=== PATIENT | male | born 1985 | race Caucasian/White ===

== ENCOUNTER 2018-07-30 14:29 | Inpatient (IN) | payer OTHER ==
[~2018-07-30] VITALS: Ht 175.3 cm; Wt 111.2 kg
[2018-07-30] MEDS ORDERED: HYDROmorphone 2 MG/ML VIAL IVP PRN (15:15)
[2018-07-30 15:24] VITALS: BP 112/63
[2018-07-30] MEDS: methylPREDNISolone SOD SUCC PF 125 MG/2 ML VIAL. IV SCH (16:00)
--- NOTE | 2018-07-30 16:09 | PDOC2 ---
GI CONSULT HPI: HPI: Easton Curry is a 32 years old male patient with history of abdominal pain, change in bowel habits with diarrhea and hematochezia. He had recent imaging of abdomen with CT that showed thickening in the left colon concerning for underlying inflammatory bowel disease. He underwent flex sig 07/30/2018 with scope advanced to splenic flexure. The exam was notable for severe inflammation with altered vascular markings, granularity,erosions,ulcerations with areas of necrotic tissue in the colonic mucosa extending from the rectum to visualized splenic flexure and distal transverse colon. Multiple biopsies were obtained to rule out IBD and viral inclusions ( CMV). Patient reported to have worsening of abdominal pain in the left upper quadrant area after the procedure. He described the pain as sharp with severity 8/10. He has associated nausea. No other complaints. PMH: PMH: Migraine FH: Family History: No pertinent hx Social History: Smoke: No ROS: GEN: Denies fevers, chills, sweats HEENT: Denies blurred vision, sore throat CV: Denies chest pain RESP: Denies shortness of air, cough GI: Per HPI : Denies hematuria, dysuria ENDO: Denies weight changes NEURO: Denies confusion, dizziness MSK: Denies weakness, joint pain/swelling SKIN: Denies jaundice, pruritus Vitals: Vitals: V/S were stable after procedure. PE: GEN: NAD HEENT: Atraumatic, PERRLA LUNGS: CTAB HEART: RRR, no murmurs ABD: Full abdomen. There was direct tenderness in the left upper abdomen. EXTREMITY: No edema SKIN: No rashes, no jaundice NEURO/PSYCH: A & O 3 A/P: A/P: A 32 years old male patient with abdominal pain, change in bowel habits with diarrhea and hematochezia. he had abnormal CT with thickening of the left side of colon wall concerning for IBD. Underwent flex sig 07/30/2018 that was notable severe colitis in the form of erythema, altered vascularity, granularity, erosions, deep ulcerations with area of necrotic mucosa in the colon from rectum to visualized distal transverse colon. Patient was complaining of worsening abdominal pain after the procedure. Recommendations - Admit to Hospital. - Keep patient NPO. - CT of abdomen and pelvis stat ( ordered) to rule out perforations. - Repeat stool studies for C.diff. - Start IV Flagyl/ Cipro. - Solu-medrol 60mg iv daily - Consult surgery ( already discussed with ) for possible diverting colostomy if patient has toxic megacolon versus perforation. - GI available for any Q's. Thank you for involving us in the care of this interesting patient. DAVINA PIERSON MD Jul 30, 2018 16:09
[2018-07-30 16:18] LABS: CALCIUM 8.6 mg/dL (8.5-10.1); GFR 85.5
[2018-07-30 16:24] LABS: ALBUMIN 3.7 g/dL (3.4-5.0); ALBUMIN/GLOBULIN RATIO 0.9 (1.0-1.7); TOTAL BILIRUBIN 0.5 mg/dL (0.2-1.0); TOTAL PROTEIN 7.9 g/dL (6.4-8.2)
--- NOTE | 2018-07-30 16:25 | RAD ---
PQRS Compliance Statement: One or more of the following individualized dose reduction techniques were utilized for this examination: 1. Automated exposure control 2. Adjustment of the mA and/or kV according to patient size 3. Use of iterative reconstruction technique CT ABDOMEN PELVIS WO CONTRAST Clinical Indication: SEVERE ABD PAIN, COLONOSCOPY TODAY, Comparison: CT abdomen and pelvis without contrast, August 18, 2011. Technique: Helical CT imaging of the abdomen and pelvis is performed without IV or oral contrast. Findings: Evaluation of solid organs and bowel is limited without oral and IV contrast, decreasing sensitivity for detection of pathology. Mild bilateral lower lobe dependent atelectasis. There is no intraperitoneal free air. Cardiac size normal. Liver, gallbladder, spleen, pancreas, adrenal glands, abdominal aorta, and kidneys are normal. Stomach unremarkable. There are subcentimeter mesenteric lymph nodes. There are several subcentimeter retroperitoneal lymph nodes. There is no adenopathy. No dilated small bowel. The appendix is normal caliber. Small amount of air in the tip of the lumen. No surrounding inflammation. No colon wall thickening. Urinary bladder is normal. Prostate and seminal vesicles are normal. No pelvic free fluid. Minimal grade 1 anterolisthesis of L5 on S1. Minimal grade 1 retrolisthesis of L4 on L5. There is no L5 spondylolysis. IMPRESSION: No acute abdominal or pelvic abnormality. Electronically signed by: Hill Greenfield MD (07/30/2018 4:22 PM) [id number]
[2018-07-30] MEDS: IV NORMAL SALINE 1000ML BAG 1,000 ML IV SCH (16:48)
[2018-07-30] MEDS: CIPROFLOXACIN 200MG PREMIX 100 ML IV SCH (16:56)
[2018-07-30] MEDS: HYDROmorphone 2 MG/ML VIAL IVP PRN ×2 (18:20→21:44)
[2018-07-30 19:00] VITALS: BP 118/60
--- NOTE | 2018-07-30 22:08 | PDOC1 ---
History and Physical Date of Admission Date of Admission DATE: 07/30/18 TIME: 22:08 Identification/Chief Complaint Chief Complaint admitted today per GI FOR SEVERE PANCOLITIS ON COLONOSCOPY TODAY Past Medical History Cardiovascular: No pertinent hx Pulmonary: No pertinent hx Hepatobiliary: Other (IBS) Infectious disease: No pertinent hx Renal/: No pertinent hx Past Surgical History Past Surgical History: Other Family History Family History: High Cholestrol Social History Smoke: No ALCOHOL: none Drugs: None Current Medications Current Medications Current Medications Hydromorphone HCl (Dilaudid) 0.5 mg PRN Q3HRS PRN IVP severe pain Last administered on 07/30/18at 15:27; Start 07/30/18 at 15:15; Stop 07/30/18 at 18:07 ; Status DC Methylprednisolone Sodium Succinate (SOLU-Medrol 125MG VIAL) 60 mg DAILY IV ; Start 07/30/18 at 16:00 Sodium Chloride 1,000 ml @ 100 mls/hr Q10H IV Last administered on 07/30/18at 16:48; Start 07/30/18 at 16:30 Metronidazole 100 ml @ 100 mls/hr Q8HRS IV Last administered on 07/30/18at 18: 19; Start 07/30/18 at 17:00 Ciprofloxacin/ Dextrose 100 ml @ 100 mls/hr Q12HR IV Last administered on 07/30at 16:56; Start 07/30/18 at 17:00 Hydromorphone HCl (Dilaudid) 1 mg PRN Q3HRS PRN IVP PAIN Last administered on at 21:44; Start 07/30/18 at 18:15 Allergies Allergies: Coded Allergies: acetaminophen (Verified Adverse Reaction, Intermediate, Nausea and Vomiting, 07/30/18) oxycodone (Verified Adverse Reaction, Intermediate, Nausea and Vomiting, ) ROS General: YES: Fatigue; No: Chills, Night Sweats, Malaise, Appetite, Other PSYCHOLOGICAL ROS: YES: Anxiety Eyes: No Blurry vision, No Decreased vision, No Double vision, No Dry eyes, No Excessive tearing, No Eye Pain, No Itchy Eyes, No Loss of vision, No Photophobia , No Scotomata, No Uses contacts, No Uses glasses, No Other HEENT: No: Heacaches, Visual Changes, Hearing change, Nasal congestion, Nasal discharge, Oral lesions, Sinus pain, Sore Throat, Epistaxis, Sneezing, Snoring, Tinnitus, Vertigo, Vocal changes, Other ALLERGY AND IMMUNOLOGY: No: Hives, Insect Bite Sensitivity, Itchy/Watery Eyes, Nasal Congestion, Post Nasal Drip, Seasonal Allergies, Other Hematological and Lymphatic: No: Bleeding Problems, Blood Clots, Blood Transfusions, Brusing, Night Sweats, Pallor, Swollen Lymph Nodes, Other ENDOCRINE: No: Breast Changes, Galactorrhea, Hair Pattern Changes, Hot Flashes , Malaise/lethargy, Mood Swings, Palpitations, Polydipsia/polyuria, Skin Changes , Temperature Intolerance, Unexpected Weight Changes, Other Respiratory: No: Cough, Hemoptysis, Orthopnea, Pleuritic Pain, Shortness of breath, SOB with excertion, Sputum Changes, Stridor, Tachypnea, Wheezing, Other Cardiovascular: No Chest Pain, No Palpitations, No Orthopnea, No Paroxysmal Noc. Dyspnea, No Edema, No Lt Headedness, No Other Gastrointestinal: Yes Abdominal Pain, Yes Melena Genitourinary: No Dysuria, No Frequency, No Incontinence, No Hematuria, No Retention, No Discharge, No Urgency, No Pain, No Flank Pain, No Other, No , No , No , No , No , No , No Musculoskeletal: No Gait Disturbance, No Joint Pain, No Joint Stiffness, No Joint Swelling, No Muscle Pain, No Muscular Weakness, No Pain In:, No Swelling In:, No Other Neurological: No Behavorial Changes, No Bowel/Bladder ControlChng, No Confusion , No Dizziness, No Gait Disturbance, No Headaches, No Impaired Coord/balance, No Memory Loss, No Numbness/Tingling, No Seizures, No Speech Problems, No Tremors, No Visual Changes, No Weakness, No Other Physical Exam General: Alert, Oriented X3, Cooperative, No acute distress HEENT: Atraumatic, PERRLA, EOMI Lungs: Clear to auscultation, Normal air movement Heart: S1S2, RRR, no thrills, no gallops, no murmurs Breasts: Not examined Abdomen: Normal bowel sounds, Other (MILD TENDERNESS) Rectal Exam: not examined, deferred PELVIC: Examination not indicated Extremities: No cyanosis Skin: No breakdown Neuro: Normal speech, Strength at 5/5 X4 ext, Sensation intact, Cranial nerves 3-12 NL Psych/Mental Status: Mental status NL, Mood NL Vitals Vitals Vital Signs Date Time Temp Pulse Resp B/P (MAP) Pulse Ox O2 Delivery O2 Flow Rate FiO2 07/30/18 21:44 18 92 Room Air 07/30/18 19:00 98.3 85 118/60 (79) 98.3 Labs Labs Laboratory Tests Test 07/30/18 16:00 Erythrocyte Sedimentation Rate 28 (0-15) Sodium Level 139 mmol/L (136-145) Potassium Level 4.0 mmol/L (3.5-5.1) Chloride Level 101 mmol/L (98-107) Carbon Dioxide Level 26 mmol/L (21-32) Anion Gap 12 (6-14) Blood Urea Nitrogen 14 mg/dL (8-26) Creatinine 1.0 mg/dL (0.7-1.3) Estimated GFR (Cockcroft-Gault) 85.5 BUN/Creatinine Ratio 14 (6-20) Glucose Level 106 mg/dL (70-99) Calcium Level 8.6 mg/dL (8.5-10.1) Total Bilirubin 0.5 mg/dL (0.2-1.0) Aspartate Amino Transf (AST/SGOT) 22 U/L (15-37) Alanine Aminotransferase (ALT/SGPT) 46 U/L (16-63) Alkaline Phosphatase 92 U/L (46-116) Total Protein 7.9 g/dL (6.4-8.2) Albumin 3.7 g/dL (3.4-5.0) Albumin/Globulin Ratio 0.9 (1.0-1.7) Hepatitis A IgM Antibody Nonreactive (Nonreactive) Hepatitis B Surface Antigen Nonreactive (Nonreactive) Hepatitis B Core IgM Antibody Nonreactive (Nonreactive) Hepatitis C IgG Antibody Nonreactive (Nonreactive) HIV (1&2) Antibody Screen Nonreactive (Nonreactive) Laboratory Tests Test 07/30/18 16:00 Erythrocyte Sedimentation Rate 28 (0-15) Sodium Level 139 mmol/L (136-145) Potassium Level 4.0 mmol/L (3.5-5.1) Chloride Level 101 mmol/L (98-107) Carbon Dioxide Level 26 mmol/L (21-32) Anion Gap 12 (6-14) Blood Urea Nitrogen 14 mg/dL (8-26) Creatinine 1.0 mg/dL (0.7-1.3) Estimated GFR (Cockcroft-Gault) 85.5 BUN/Creatinine Ratio 14 (6-20) Glucose Level 106 mg/dL (70-99) Calcium Level 8.6 mg/dL (8.5-10.1) Total Bilirubin 0.5 mg/dL (0.2-1.0) Aspartate Amino Transf (AST/SGOT) 22 U/L (15-37) Alanine Aminotransferase (ALT/SGPT) 46 U/L (16-63) Alkaline Phosphatase 92 U/L (46-116) Total Protein 7.9 g/dL (6.4-8.2) Albumin 3.7 g/dL (3.4-5.0) Albumin/Globulin Ratio 0.9 (1.0-1.7) Hepatitis A IgM Antibody Nonreactive (Nonreactive) Hepatitis B Surface Antigen Nonreactive (Nonreactive) Hepatitis B Core IgM Antibody Nonreactive (Nonreactive) Hepatitis C IgG Antibody Nonreactive (Nonreactive) HIV (1&2) Antibody Screen Nonreactive (Nonreactive) Images Images CT ABDOMEN PELVIS WO CONTRAST Clinical Indication: SEVERE ABD PAIN, COLONOSCOPY TODAY, Comparison: CT abdomen and pelvis without contrast, August 18, 2011. Technique: Helical CT imaging of the abdomen and pelvis is performed without IV or oral contrast. Findings: Evaluation of solid organs and bowel is limited without oral and IV contrast, decreasing sensitivity for detection of pathology. Mild bilateral lower lobe dependent atelectasis. There is no intraperitoneal free air. Cardiac size normal. Liver, gallbladder, spleen, pancreas, adrenal glands, abdominal aorta, and kidneys are normal. Stomach unremarkable. There are subcentimeter mesenteric lymph nodes. There are several subcentimeter retroperitoneal lymph nodes. There is no adenopathy. No dilated small bowel. The appendix is normal caliber. Small amount of air in the tip of the lumen. No surrounding inflammation. No colon wall thickening. Urinary bladder is normal. Prostate and seminal vesicles are normal. No pelvic free fluid. Minimal grade 1 anterolisthesis of L5 on S1. Minimal grade 1 retrolisthesis of L4 on L5. There is no L5 spondylolysis. IMPRESSION: No acute abdominal or pelvic abnormality. Electronically signed by: Hill Greenfield MD (07/30/2018 4:22 PM) [id number] VTE Prophylaxis Ordered VTE Prophylaxis Devices: Yes VTE Pharmacological Prophylaxi: Yes Assessment/Plan Assessment/Plan IMPRESSION 1. SEVERE PANCOLITIS 2. possible c-diff 3. hx suspected colitis x 3 4. Minimal grade 1 anterolisthesis of L5 on S1. Minimal grade 1 retrolisthesis of L4 on L5. There is no L5 spondylolysis. plan npo iv fluid support iv flagyl, cipro PATHOGENIC enteric stool culture GI CONSULTED [facility] - Solu-medrol 60mg iv daily - Consult surgery () ERNESTO FLORES MD Jul 30, 2018 22:08
[2018-07-30 23:00] VITALS: BP 110/56
[2018-07-31] MEDS ORDERED: diphenhydrAMINE 50 MG/ML VIAL IVP ONE (01:15)
[2018-07-31] MEDS: HYDROmorphone 2 MG/ML VIAL IVP PRN (01:24)
[2018-07-31 03:00] VITALS: BP 120/70
[2018-07-31] MEDS: IV NORMAL SALINE 1000ML BAG 1,000 ML IV SCH ×3 (03:54→22:30)
[2018-07-31 06:58] LABS: BASO % 0 % (0-3); EOS % 0 % (0-3); HEMATOCRIT 38.3 % (39.0-53.0); HEMOGLOBIN 12.8 g/dL (13.0-17.5); LYMPH # 0.8 x10^3/uL (1.0-4.8); LYMPH % 7 % (24-48); MEAN CORPUSCULAR HEMOGLOBIN 29 pg (25-35); MEAN CORPUSCULAR HGB CONC 33 g/dL (31-37); MEAN CORPUSCULAR VOLUME 88 fL (79-100); MONO # 0.3 x10^3/uL (0.0-1.1); MONO % 3 % (0-9); NEUT # 10.6 x10^3uL (1.8-7.7); NEUT % 90 % (31-73); PLATELET COUNT 358 x10^3/uL (140-400); RED BLOOD COUNT 4.38 x10^6/uL (4.30-5.70); RED CELL DISTRIBUTION WIDTH 13.4 % (11.5-14.5); WHITE BLOOD COUNT 11.8 x10^3/uL (4.0-11.0)
[2018-07-31 07:00] VITALS: BP 96/53
[2018-07-31 07:36] LABS: ALBUMIN 2.9 g/dL (3.4-5.0); ALBUMIN/GLOBULIN RATIO 0.7 (1.0-1.7); CALCIUM 8.6 mg/dL (8.5-10.1); CREATININE 0.7 mg/dL (0.7-1.3); GFR 129.1; POTASSIUM 3.9 mmol/L (3.5-5.1); TOTAL BILIRUBIN 0.5 mg/dL (0.2-1.0); TOTAL PROTEIN 6.9 g/dL (6.4-8.2)
--- NOTE | 2018-07-31 08:51 | PDOC ---
Subjective: Subjective: Feels much better - no diarrhea or bleeding, pain improved. Objective: Objective: RN reports he c/o heartburn. Got Dilaudid overnight. Vital Signs: Vital Signs Date Time Temp Pulse Resp B/P (MAP) Pulse Ox O2 Delivery O2 Flow Rate FiO2 07/31/18 03:00 98.3 70 18 120/70 (87) 97 Room Air 98.3 Labs: Laboratory Tests Test 07/30/18 16:00 07/31/18 06:00 07/31/18 06:20 Erythrocyte Sedimentation Rate 28 Sodium Level 139 mmol/L 138 mmol/L Potassium Level 4.0 mmol/L 3.9 mmol/L Chloride Level 101 mmol/L 103 mmol/L Carbon Dioxide Level 26 mmol/L 27 mmol/L Anion Gap 12 8 Blood Urea Nitrogen 14 mg/dL 14 mg/dL Creatinine 1.0 mg/dL 0.7 mg/dL Estimated GFR (Cockcroft-Gault) 85.5 129.1 BUN/Creatinine Ratio 14 20 Glucose Level 106 mg/dL 131 mg/dL Calcium Level 8.6 mg/dL 8.6 mg/dL Total Bilirubin 0.5 mg/dL 0.5 mg/dL Aspartate Amino Transf (AST/SGOT) 22 U/L 19 U/L Alanine Aminotransferase (ALT/SGPT) 46 U/L 39 U/L Alkaline Phosphatase 92 U/L 85 U/L Total Protein 7.9 g/dL 6.9 g/dL Albumin 3.7 g/dL 2.9 g/dL Albumin/Globulin Ratio 0.9 0.7 Hepatitis A IgM Antibody Nonreactive Hepatitis B Surface Antigen Nonreactive Hepatitis B Core IgM Antibody Nonreactive Hepatitis C IgG Antibody Nonreactive HIV (1&2) Antibody Screen Nonreactive White Blood Count 11.8 x10^3/uL Red Blood Count 4.38 x10^6/uL Hemoglobin 12.8 g/dL Hematocrit 38.3 % Mean Corpuscular Volume 88 fL Mean Corpuscular Hemoglobin 29 pg Mean Corpuscular Hemoglobin Concent 33 g/dL Red Cell Distribution Width 13.4 % Platelet Count 358 x10^3/uL Neutrophils (%) (Auto) 90 % Lymphocytes (%) (Auto) 7 % Monocytes (%) (Auto) 3 % Eosinophils (%) (Auto) 0 % Basophils (%) (Auto) 0 % Neutrophils # (Auto) 10.6 x10^3uL Lymphocytes # (Auto) 0.8 x10^3/uL Monocytes # (Auto) 0.3 x10^3/uL Eosinophils # (Auto) 0.0 x10^3/uL Basophils # (Auto) 0.0 x10^3/uL Platelet Estimate Pending PE: GEN: NAD LUNGS: CTAB HEART: RRR ABD: NABS, S/ND/NT NEURO/PSYCH: A & O 3 A/P: Severe colitis concerning for UC -- Continue IV steroids x 4 days - consider DC on Sunday (?CT enterography prior to DC) Await pending labs. Can cancel C Diff - was negative on 07/29. Try clears and ADAT. Follow-up in the office re: initiation of biologic therapy (Remicade). Our office is taking care of [place] paperwork per his request. Okay for DVT prophylaxis (per primary) - encouraged ambulation. FER ROSENBERG Jul 31, 2018 08:51
[2018-07-31] MEDS ORDERED: traMADol 50 MG TABLET PO PRN (09:00)
[2018-07-31] MEDS: CIPROFLOXACIN 200MG PREMIX 100 ML IV SCH ×2 (09:06→21:46)
[2018-07-31] MEDS: PANTOPRAZOLE 40 MG TABLET.DR. PO SCH (09:06)
[2018-07-31] MEDS: methylPREDNISolone SOD SUCC PF 125 MG/2 ML VIAL. IV SCH (09:07)
[2018-07-31 09:20] LABS: % BANDS 2 % (0-9); % LYMPHS 9 % (24-48); % MONOS 1 % (0-10); % SEGS 88 % (35-66); PLT ESTIMATE ADEQUATE (ADEQUATE)
--- NOTE | 2018-07-31 10:12 | PDOC2 ---
CONSULT Date of Consult Date of Consult DATE: 07/31/18 TIME: 10:08 Reason for Consult Reason for Consult: colitis Referring Physician Referring Physician: Jerry Identification/Chief Complaint Chief Complaint LLQ abd pain, hematochezia Source Source: Caregiver, Chart review, Patient History of Present Illness Reason for Visit: 32 yo M with hx of colitis. Developed issues with hematochezia and abd pain. Underwent colonoscopy by GI yesterday with increased pain. Admitted to hospital and started on steroids. Today, feels much improved. Denies N/V/F/C. Pain nearly resolved. Past Medical History Cardiovascular: No pertinent hx Pulmonary: No pertinent hx Hepatobiliary: Other (IBS) Infectious disease: No pertinent hx Renal/: No pertinent hx Past Surgical History Past Surgical History: Other Family History Family History: High Cholestrol Social History No ALCOHOL: none Drugs: None Current Medications Current Medications Current Medications Hydromorphone HCl (Dilaudid) 0.5 mg PRN Q3HRS PRN IVP severe pain Last administered on 07/30/18at 15:27; Start 07/30/18 at 15:15; Stop 07/30/18 at 18:07 ; Status DC Methylprednisolone Sodium Succinate (SOLU-Medrol 125MG VIAL) 60 mg DAILY IV Last administered on 07/31/18at 09:07; Start 07/30/18 at 16:00 Sodium Chloride 1,000 ml @ 100 mls/hr Q10H IV Last administered on 07/31/18at 03:54; Start 07/30/18 at 16:30 Metronidazole 100 ml @ 100 mls/hr Q8HRS IV Last administered on 07/31/18at 05: 22; Start 07/30/18 at 17:00 Ciprofloxacin/ Dextrose 100 ml @ 100 mls/hr Q12HR IV Last administered on 07/31at 09:06; Start 07/30/18 at 17:00 Hydromorphone HCl (Dilaudid) 1 mg PRN Q3HRS PRN IVP PAIN Last administered on at 01:24; Start 07/30/18 at 18:15 Diphenhydramine HCl (Benadryl) 25 mg 1X ONCE IVP Last administered on at 01:24; Start 07/31/18 at 01:15; Stop 07/31/18 at 01:16; Status DC Pantoprazole Sodium (Protonix) 40 mg DAILYAC PO Last administered on 07/31/18at 09:06; Start 07/31/18 at 09:00 Tramadol HCl (Ultram) 50 mg PRN Q6HRS PRN PO PAIN; Start 07/31/18 at 09:00 Allergies Allergies: Coded Allergies: acetaminophen (Verified Adverse Reaction, Intermediate, Nausea and Vomiting, 07/30/18) oxycodone (Verified Adverse Reaction, Intermediate, Nausea and Vomiting, ) ROS Gastrointestinal: Yes Abdominal Pain, Yes Hematochezia Physical Exam General: Alert, Oriented X3, Cooperative, No acute distress HEENT: Atraumatic Lungs: Normal air movement Abdomen: Soft, No tenderness Extremities: No clubbing, No cyanosis Skin: No rashes, No breakdown Neuro: Normal speech, Sensation intact Psych/Mental Status: Mental status NL, Mood NL Vitals VITALS Vital Signs Date Time Temp Pulse Resp B/P (MAP) Pulse Ox O2 Delivery O2 Flow Rate FiO2 07/31/18 07:00 98.7 71 17 96/53 (67) 95 Room Air 98.7 Labs Labs Laboratory Tests Test 07/30/18 16:00 07/31/18 06:00 07/31/18 06:20 Erythrocyte Sedimentation Rate 28 (0-15) Sodium Level 139 mmol/L (136-145) 138 mmol/L (136-145) Potassium Level 4.0 mmol/L (3.5-5.1) 3.9 mmol/L (3.5-5.1) Chloride Level 101 mmol/L (98-107) 103 mmol/L (98-107) Carbon Dioxide Level 26 mmol/L (21-32) 27 mmol/L (21-32) Anion Gap 12 (6-14) 8 (6-14) Blood Urea Nitrogen 14 mg/dL (8-26) 14 mg/dL (8-26) Creatinine 1.0 mg/dL (0.7-1.3) 0.7 mg/dL (0.7-1.3) Estimated GFR (Cockcroft-Gault) 85.5 129.1 BUN/Creatinine Ratio 14 (6-20) 20 (6-20) Glucose Level 106 mg/dL (70-99) 131 mg/dL (70-99) Calcium Level 8.6 mg/dL (8.5-10.1) 8.6 mg/dL (8.5-10.1) Total Bilirubin 0.5 mg/dL (0.2-1.0) 0.5 mg/dL (0.2-1.0) Aspartate Amino Transf (AST/SGOT) 22 U/L (15-37) 19 U/L (15-37) Alanine Aminotransferase (ALT/SGPT) 46 U/L (16-63) 39 U/L (16-63) Alkaline Phosphatase 92 U/L (46-116) 85 U/L (46-116) Total Protein 7.9 g/dL (6.4-8.2) 6.9 g/dL (6.4-8.2) Albumin 3.7 g/dL (3.4-5.0) 2.9 g/dL (3.4-5.0) Albumin/Globulin Ratio 0.9 (1.0-1.7) 0.7 (1.0-1.7) Hepatitis A IgM Antibody Nonreactive (Nonreactive) Hepatitis B Surface Antigen Nonreactive (Nonreactive) Hepatitis B Core IgM Antibody Nonreactive (Nonreactive) Hepatitis C IgG Antibody Nonreactive (Nonreactive) HIV (1&2) Antibody Screen Nonreactive (Nonreactive) White Blood Count 11.8 x10^3/uL (4.0-11.0) Red Blood Count 4.38 x10^6/uL (4.30-5.70) Hemoglobin 12.8 g/dL (13.0-17.5) Hematocrit 38.3 % (39.0-53.0) Mean Corpuscular Volume 88 fL (79-100) Mean Corpuscular Hemoglobin 29 pg (25-35) Mean Corpuscular Hemoglobin Concent 33 g/dL (31-37) Red Cell Distribution Width 13.4 % (11.5-14.5) Platelet Count 358 x10^3/uL (140-400) Neutrophils (%) (Auto) 90 % (31-73) Lymphocytes (%) (Auto) 7 % (24-48) Monocytes (%) (Auto) 3 % (0-9) Eosinophils (%) (Auto) 0 % (0-3) Basophils (%) (Auto) 0 % (0-3) Neutrophils # (Auto) 10.6 x10^3uL (1.8-7.7) Lymphocytes # (Auto) 0.8 x10^3/uL (1.0-4.8) Monocytes # (Auto) 0.3 x10^3/uL (0.0-1.1) Eosinophils # (Auto) 0.0 x10^3/uL (0.0-0.7) Basophils # (Auto) 0.0 x10^3/uL (0.0-0.2) Segmented Neutrophils % 88 % (35-66) Band Neutrophils % 2 % (0-9) Lymphocytes % 9 % (24-48) Monocytes % 1 % (0-10) Platelet Estimate Adequate (ADEQUATE) Laboratory Tests Test 07/30/18 16:00 07/31/18 06:00 07/31/18 06:20 Erythrocyte Sedimentation Rate 28 (0-15) Sodium Level 139 mmol/L (136-145) 138 mmol/L (136-145) Potassium Level 4.0 mmol/L (3.5-5.1) 3.9 mmol/L (3.5-5.1) Chloride Level 101 mmol/L (98-107) 103 mmol/L (98-107) Carbon Dioxide Level 26 mmol/L (21-32) 27 mmol/L (21-32) Anion Gap 12 (6-14) 8 (6-14) Blood Urea Nitrogen 14 mg/dL (8-26) 14 mg/dL (8-26) Creatinine 1.0 mg/dL (0.7-1.3) 0.7 mg/dL (0.7-1.3) Estimated GFR (Cockcroft-Gault) 85.5 129.1 BUN/Creatinine Ratio 14 (6-20) 20 (6-20) Glucose Level 106 mg/dL (70-99) 131 mg/dL (70-99) Calcium Level 8.6 mg/dL (8.5-10.1) 8.6 mg/dL (8.5-10.1) Total Bilirubin 0.5 mg/dL (0.2-1.0) 0.5 mg/dL (0.2-1.0) Aspartate Amino Transf (AST/SGOT) 22 U/L (15-37) 19 U/L (15-37) Alanine Aminotransferase (ALT/SGPT) 46 U/L (16-63) 39 U/L (16-63) Alkaline Phosphatase 92 U/L (46-116) 85 U/L (46-116) Total Protein 7.9 g/dL (6.4-8.2) 6.9 g/dL (6.4-8.2) Albumin 3.7 g/dL (3.4-5.0) 2.9 g/dL (3.4-5.0) Albumin/Globulin Ratio 0.9 (1.0-1.7) 0.7 (1.0-1.7) Hepatitis A IgM Antibody Nonreactive (Nonreactive) Hepatitis B Surface Antigen Nonreactive (Nonreactive) Hepatitis B Core IgM Antibody Nonreactive (Nonreactive) Hepatitis C IgG Antibody Nonreactive (Nonreactive) HIV (1&2) Antibody Screen Nonreactive (Nonreactive) White Blood Count 11.8 x10^3/uL (4.0-11.0) Red Blood Count 4.38 x10^6/uL (4.30-5.70) Hemoglobin 12.8 g/dL (13.0-17.5) Hematocrit 38.3 % (39.0-53.0) Mean Corpuscular Volume 88 fL (79-100) Mean Corpuscular Hemoglobin 29 pg (25-35) Mean Corpuscular Hemoglobin Concent 33 g/dL (31-37) Red Cell Distribution Width 13.4 % (11.5-14.5) Platelet Count 358 x10^3/uL (140-400) Neutrophils (%) (Auto) 90 % (31-73) Lymphocytes (%) (Auto) 7 % (24-48) Monocytes (%) (Auto) 3 % (0-9) Eosinophils (%) (Auto) 0 % (0-3) Basophils (%) (Auto) 0 % (0-3) Neutrophils # (Auto) 10.6 x10^3uL (1.8-7.7) Lymphocytes # (Auto) 0.8 x10^3/uL (1.0-4.8) Monocytes # (Auto) 0.3 x10^3/uL (0.0-1.1) Eosinophils # (Auto) 0.0 x10^3/uL (0.0-0.7) Basophils # (Auto) 0.0 x10^3/uL (0.0-0.2) Segmented Neutrophils % 88 % (35-66) Band Neutrophils % 2 % (0-9) Lymphocytes % 9 % (24-48) Monocytes % 1 % (0-10) Platelet Estimate Adequate (ADEQUATE) Images Images CT wnl, coloscopy with severe inflammation of left colon Assessment/Plan Assessment/Plan Colitis, unknown etiology agree with w/u and treatment per GI and pt appears to be responding well. No immediate surgical plans, but will be available if intervention necessary. Thanks for consult! ARIADNE PRO MD Jul 31, 2018 10:12
[2018-07-31 11:00] VITALS: BP 105/59
[2018-07-31 15:00] VITALS: BP 118/65
[2018-07-31 19:48] VITALS: BP 131/66
[2018-07-31] MEDS: LACTOBACILLUS RHAMNOSUS GG 1 CAPSULE. PO SCH (21:46)
[2018-07-31] MEDS: diphenhydrAMINE 50 MG/ML VIAL IV PRN (21:56)
--- NOTE | 2018-07-31 23:18 | PN ---
DATE: 07/31/2018 SUBJECTIVE: 1. The patient has no more pain or bloody diarrhea. 2. He requests for Benadryl as he is taking Dilaudid. 3. C. diff has been canceled because he was negative on 07/29/2018. 4. Known to Dr. Sahni, GI -- they are planning on Remicade after this flareup. Had a colonoscopy yesterday and showed very frail, friable in testing hence admitted for fear of perforation and started on IV Flagyl, IV steroids. They are also working on [email or web address] paperwork. Once Crohn's disease or flare comes down then they are planning on Remicade. 5. Crohn's does run in the family -- his father. OBJECTIVE: GENERAL: Awake, alert, oriented x 3, not in acute respiratory distress. HEENT: Unremarkable. LUNGS: Clear to auscultation bilaterally. HEART: Normal rate and rhythm. No murmurs, rubs or gallops. ABDOMEN: Soft, nontender, normoactive bowel sounds. GENITALIA: Appropriate for age. EXTREMITIES: Negative edema. Pulses full and equal. No pallor or cyanosis of nailbed. ASSESSMENT AND PLAN: 1. Colitis flare likely Crohn's disease. 2. History of Crohn's in the father. 3. Bloody diarrhea secondary to above. 4. Narcotic dependence. 5. Itching from Dilaudid. PLAN: 1. Benadryl. 2. Continue IV Dilaudid. 3. Continue IV fluids. 4. Continue IV Flagyl. 5. Continue IV steroids as per GI. 6. Target discharge Sunday as per GI and he will follow up for possible Remicade as outpatient. CARLO BEAUCHAMP MD DR: /nts JOB#: [id number] / [id number]
[2018-07-31 23:34] VITALS: BP 117/57
[2018-08-01 03:17] VITALS: BP 111/63
[2018-08-01] MEDS: PANTOPRAZOLE 40 MG TABLET.DR. PO SCH (05:52)
[2018-08-01 07:00] VITALS: BP 131/71
--- NOTE | 2018-08-01 08:37 | NUR ---
SW following pt for anticipated dc needs. Chart reviewed. Pt lives at home with spouse/family and currently on room air. Pt is independent with mobility and no skilled needs indicated at this time. Will continue to evaluate dc needs.
[2018-08-01] MEDS: IV NORMAL SALINE 1000ML BAG 1,000 ML IV SCH (08:51)
--- NOTE | 2018-08-01 09:13 | PDOC ---
Subjective: Subjective: Feeling well. Tolerating PO, denies abd pain. Has had two stools - the first was a bit "reddish" and the second was "loose but not diarrhea" without blood. Asks about [place] paperwork and follow-up appt. Objective: Objective: Per RN - no c/o abd pain but he has some questions about what the plan is, wonders about repeating CT and possible resection. Reviewed Dr. Melo's note. Vital Signs: Vital Signs Date Time Temp Pulse Resp B/P (MAP) Pulse Ox O2 Delivery O2 Flow Rate FiO2 08/01/18 07:00 97.6 68 18 131/71 (91) 99 Room Air 97.6 Labs: Laboratory Tests Test 08/01/18 09:22 White Blood Count 10.1 x10^3/uL Red Blood Count 4.37 x10^6/uL Hemoglobin 12.7 g/dL Hematocrit 38.3 % Mean Corpuscular Volume 88 fL Mean Corpuscular Hemoglobin 29 pg Mean Corpuscular Hemoglobin Concent 33 g/dL Red Cell Distribution Width 13.8 % Platelet Count 329 x10^3/uL Sodium Level 144 mmol/L Potassium Level 3.2 mmol/L Chloride Level 106 mmol/L Carbon Dioxide Level 26 mmol/L Anion Gap 12 Blood Urea Nitrogen 13 mg/dL Creatinine 1.0 mg/dL Estimated GFR (Cockcroft-Gault) 85.5 Glucose Level 109 mg/dL Calcium Level 8.3 mg/dL PE: GEN: NAD LUNGS: CTAB HEART: RRR ABD: NABS, S/NT/ND NEURO/PSYCH: A & O 3 A/P: Severe colitis concerning for UC -- Pain, diarrhea, and bleeding improved/resolved. Continue IV steroids and atbx for now - will review w/ Dr. Cabrales re: discharge (?tomorrow), plans for meds on DC (assume steroid taper), office follow-up, [place] paperwork, and any plans for CT enterography prior to Dc as previously discussed. Since I have seen, CT rescheduled for tomorrow (RN says per pt request) - will adjust orders for NPO at midnight for this. FER ROSENBERG Aug 01, 2018 09:13
[2018-08-01] MEDS: CIPROFLOXACIN 200MG PREMIX 100 ML IV SCH ×2 (09:22→21:32)
[2018-08-01] MEDS: methylPREDNISolone SOD SUCC PF 125 MG/2 ML VIAL. IV SCH (09:23)
[2018-08-01] MEDS: LACTOBACILLUS RHAMNOSUS GG 1 CAPSULE. PO SCH ×2 (09:24→21:31)
[2018-08-01 09:45] LABS: HEMATOCRIT 38.3 % (39.0-53.0); HEMOGLOBIN 12.7 g/dL (13.0-17.5); RED BLOOD COUNT 4.37 x10^6/uL (4.30-5.70); RED CELL DISTRIBUTION WIDTH 13.8 % (11.5-14.5); WHITE BLOOD COUNT 10.1 x10^3/uL (4.0-11.0)
[2018-08-01 09:52] LABS: CALCIUM 8.3 mg/dL (8.5-10.1); GFR 85.5; POTASSIUM 3.2 mmol/L (3.5-5.1)
--- NOTE | 2018-08-01 10:07 | PDOC ---
SURGICAL PROGRESS NOTE Subjective Pt reports feeling better, breann PO, passing stools without signs of blood Vital Signs Vital Signs Date Time Temp Pulse Resp B/P (MAP) Pulse Ox O2 Delivery O2 Flow Rate FiO2 08/01/18 07:00 97.6 68 18 131/71 (91) 99 Room Air 97.6 I&O Intake and Output 08/01/18 07:00 Intake Total 1060 ml Output Total 2 ml Balance 1058 ml Intake Oral 1060 ml Output Urine Total 2 ml # Voids 4 General: Alert, Oriented X3, Cooperative, No acute distress Abdomen: Soft, No tenderness Labs Laboratory Tests Test 07/30/18 16:00 07/31/18 06:00 07/31/18 06:20 08/01/18 09:22 Erythrocyte Sedimentation Rate 28 (0-15) Sodium Level 139 mmol/L (136-145) 138 mmol/L (136-145) 144 mmol/L (136-145) Potassium Level 4.0 mmol/L (3.5-5.1) 3.9 mmol/L (3.5-5.1) 3.2 mmol/L (3.5-5.1) Chloride Level 101 mmol/L (98-107) 103 mmol/L (98-107) 106 mmol/L (98-107) Carbon Dioxide Level 26 mmol/L (21-32) 27 mmol/L (21-32) 26 mmol/L (21-32) Anion Gap 12 (6-14) 8 (6-14) 12 (6-14) Blood Urea Nitrogen 14 mg/dL (8-26) 14 mg/dL (8-26) 13 mg/dL (8-26) Creatinine 1.0 mg/dL (0.7-1.3) 0.7 mg/dL (0.7-1.3) 1.0 mg/dL (0.7-1.3) Estimated GFR (Cockcroft-Gault) 85.5 129.1 85.5 BUN/Creatinine Ratio 14 (6-20) 20 (6-20) Glucose Level 106 mg/dL (70-99) 131 mg/dL (70-99) 109 mg/dL (70-99) Calcium Level 8.6 mg/dL (8.5-10.1) 8.6 mg/dL (8.5-10.1) 8.3 mg/dL (8.5-10.1) Total Bilirubin 0.5 mg/dL (0.2-1.0) 0.5 mg/dL (0.2-1.0) Aspartate Amino Transf (AST/SGOT) 22 U/L (15-37) 19 U/L (15-37) Alanine Aminotransferase (ALT/SGPT) 46 U/L (16-63) 39 U/L (16-63) Alkaline Phosphatase 92 U/L (46-116) 85 U/L (46-116) Total Protein 7.9 g/dL (6.4-8.2) 6.9 g/dL (6.4-8.2) Albumin 3.7 g/dL (3.4-5.0) 2.9 g/dL (3.4-5.0) Albumin/Globulin Ratio 0.9 (1.0-1.7) 0.7 (1.0-1.7) Hepatitis A IgM Antibody Nonreactive (Nonreactive) Hepatitis B Surface Antigen Nonreactive (Nonreactive) Hepatitis B Core IgM Antibody Nonreactive (Nonreactive) Hepatitis C IgG Antibody Nonreactive (Nonreactive) HIV (1&2) Antibody Screen Nonreactive (Nonreactive) White Blood Count 11.8 x10^3/uL (4.0-11.0) 10.1 x10^3/uL (4.0-11.0) Red Blood Count 4.38 x10^6/uL (4.30-5.70) 4.37 x10^6/uL (4.30-5.70) Hemoglobin 12.8 g/dL (13.0-17.5) 12.7 g/dL (13.0-17.5) Hematocrit 38.3 % (39.0-53.0) 38.3 % (39.0-53.0) Mean Corpuscular Volume 88 fL (79-100) 88 fL (79-100) Mean Corpuscular Hemoglobin 29 pg (25-35) 29 pg (25-35) Mean Corpuscular Hemoglobin Concent 33 g/dL (31-37) 33 g/dL (31-37) Red Cell Distribution Width 13.4 % (11.5-14.5) 13.8 % (11.5-14.5) Platelet Count 358 x10^3/uL (140-400) 329 x10^3/uL (140-400) Neutrophils (%) (Auto) 90 % (31-73) Lymphocytes (%) (Auto) 7 % (24-48) Monocytes (%) (Auto) 3 % (0-9) Eosinophils (%) (Auto) 0 % (0-3) Basophils (%) (Auto) 0 % (0-3) Neutrophils # (Auto) 10.6 x10^3uL (1.8-7.7) Lymphocytes # (Auto) 0.8 x10^3/uL (1.0-4.8) Monocytes # (Auto) 0.3 x10^3/uL (0.0-1.1) Eosinophils # (Auto) 0.0 x10^3/uL (0.0-0.7) Basophils # (Auto) 0.0 x10^3/uL (0.0-0.2) Segmented Neutrophils % 88 % (35-66) Band Neutrophils % 2 % (0-9) Lymphocytes % 9 % (24-48) Monocytes % 1 % (0-10) Platelet Estimate Adequate (ADEQUATE) Hepatitis B Core Total Antibody Negative (Negative) Laboratory Tests Test 08/01/18 09:22 White Blood Count 10.1 x10^3/uL (4.0-11.0) Red Blood Count 4.37 x10^6/uL (4.30-5.70) Hemoglobin 12.7 g/dL (13.0-17.5) Hematocrit 38.3 % (39.0-53.0) Mean Corpuscular Volume 88 fL (79-100) Mean Corpuscular Hemoglobin 29 pg (25-35) Mean Corpuscular Hemoglobin Concent 33 g/dL (31-37) Red Cell Distribution Width 13.8 % (11.5-14.5) Platelet Count 329 x10^3/uL (140-400) Sodium Level 144 mmol/L (136-145) Potassium Level 3.2 mmol/L (3.5-5.1) Chloride Level 106 mmol/L (98-107) Carbon Dioxide Level 26 mmol/L (21-32) Anion Gap 12 (6-14) Blood Urea Nitrogen 13 mg/dL (8-26) Creatinine 1.0 mg/dL (0.7-1.3) Estimated GFR (Cockcroft-Gault) 85.5 Glucose Level 109 mg/dL (70-99) Calcium Level 8.3 mg/dL (8.5-10.1) Problem List colitis appears to be doing well with current management no surgical plans, defer to GI available to consider, if needed. ARIADNE PRO MD Aug 01, 2018 10:07
[2018-08-01 11:02] VITALS: BP 136/70
--- NOTE | 2018-08-01 11:53 | PDOC ---
PROGRESS NOTES Chief Complaint Chief Complaint 1. Colitis flare likely Crohn's disease. 2. History of Crohn's in the father. 3. Bloody diarrhea secondary to above. 4. Narcotic dependence. 5. Itching from Dilaudid. History of Present Illness History of Present Illness NO Bloody BM No significant abdominal pain Known to Dr. Brunner He is being planned for Remicade as outpatient [facility] paperwork also be filled out by GI Dr. Brunner wanted him to discharge Sunday on by mouth Cipro Flagyl steroids etc. To continue current present management PLAN: CPM DC tomorrow with by mouth Cipro Flagyl steroids etc. Follow-up Dr. Brunner as outpatient re Remicade Vitals Vitals Vital Signs Date Time Temp Pulse Resp B/P (MAP) Pulse Ox O2 Delivery O2 Flow Rate FiO2 08/01/18 11:02 97.7 78 18 136/70 (92) 96 Room Air 97.7 Physical Exam General: Alert, Oriented X3, Cooperative, No acute distress Heart: Regular rate, Normal S1, Normal S2 Lungs: Clear Abdomen: Soft, No tenderness Extremities: No clubbing, No cyanosis Skin: No rashes, No breakdown Labs LABS Laboratory Tests Test 08/01/18 09:22 White Blood Count 10.1 x10^3/uL (4.0-11.0) Red Blood Count 4.37 x10^6/uL (4.30-5.70) Hemoglobin 12.7 g/dL (13.0-17.5) Hematocrit 38.3 % (39.0-53.0) Mean Corpuscular Volume 88 fL (79-100) Mean Corpuscular Hemoglobin 29 pg (25-35) Mean Corpuscular Hemoglobin Concent 33 g/dL (31-37) Red Cell Distribution Width 13.8 % (11.5-14.5) Platelet Count 329 x10^3/uL (140-400) Sodium Level 144 mmol/L (136-145) Potassium Level 3.2 mmol/L (3.5-5.1) Chloride Level 106 mmol/L (98-107) Carbon Dioxide Level 26 mmol/L (21-32) Anion Gap 12 (6-14) Blood Urea Nitrogen 13 mg/dL (8-26) Creatinine 1.0 mg/dL (0.7-1.3) Estimated GFR (Cockcroft-Gault) 85.5 Glucose Level 109 mg/dL (70-99) Calcium Level 8.3 mg/dL (8.5-10.1) Review of Systems Review of Systems A 14 point ROS was completed with the following noted as positive: Other systems reviewed and negative. \CONSTITUTIONAL: No fever or chills EYES: No recent changes SKIN: No rash or itching CARDIOVASCULAR: No chest pain, syncope, palpitations, or edema RESPIRATORY: No SOB or cough GASTROINTESTINAL: No nausea, vomiting or abdominal pain NEUROLOGICAL: No headaches or weakness ENDOCRINE: No cold or heat intolerance GENITOURINARY: No urgency or frequency of urination MUSCULOSKELETAL: No back pain or joint pain LYMPHATICS: No enlarged lymph nodes PSYCHIATRIC: No anxiety or depression Comment Review of Relevant I have reviewed the following items adis (where applicable) has been applied. Labs Laboratory Tests Test 07/30/18 16:00 07/31/18 06:00 07/31/18 06:20 08/01/18 09:22 Erythrocyte Sedimentation Rate 28 (0-15) Sodium Level 139 mmol/L (136-145) 138 mmol/L (136-145) 144 mmol/L (136-145) Potassium Level 4.0 mmol/L (3.5-5.1) 3.9 mmol/L (3.5-5.1) 3.2 mmol/L (3.5-5.1) Chloride Level 101 mmol/L (98-107) 103 mmol/L (98-107) 106 mmol/L (98-107) Carbon Dioxide Level 26 mmol/L (21-32) 27 mmol/L (21-32) 26 mmol/L (21-32) Anion Gap 12 (6-14) 8 (6-14) 12 (6-14) Blood Urea Nitrogen 14 mg/dL (8-26) 14 mg/dL (8-26) 13 mg/dL (8-26) Creatinine 1.0 mg/dL (0.7-1.3) 0.7 mg/dL (0.7-1.3) 1.0 mg/dL (0.7-1.3) Estimated GFR (Cockcroft-Gault) 85.5 129.1 85.5 BUN/Creatinine Ratio 14 (6-20) 20 (6-20) Glucose Level 106 mg/dL (70-99) 131 mg/dL (70-99) 109 mg/dL (70-99) Calcium Level 8.6 mg/dL (8.5-10.1) 8.6 mg/dL (8.5-10.1) 8.3 mg/dL (8.5-10.1) Total Bilirubin 0.5 mg/dL (0.2-1.0) 0.5 mg/dL (0.2-1.0) Aspartate Amino Transf (AST/SGOT) 22 U/L (15-37) 19 U/L (15-37) Alanine Aminotransferase (ALT/SGPT) 46 U/L (16-63) 39 U/L (16-63) Alkaline Phosphatase 92 U/L (46-116) 85 U/L (46-116) Total Protein 7.9 g/dL (6.4-8.2) 6.9 g/dL (6.4-8.2) Albumin 3.7 g/dL (3.4-5.0) 2.9 g/dL (3.4-5.0) Albumin/Globulin Ratio 0.9 (1.0-1.7) 0.7 (1.0-1.7) Hepatitis A IgM Antibody Nonreactive (Nonreactive) Hepatitis B Surface Antigen Nonreactive (Nonreactive) Hepatitis B Core IgM Antibody Nonreactive (Nonreactive) Hepatitis C IgG Antibody Nonreactive (Nonreactive) HIV (1&2) Antibody Screen Nonreactive (Nonreactive) White Blood Count 11.8 x10^3/uL (4.0-11.0) 10.1 x10^3/uL (4.0-11.0) Red Blood Count 4.38 x10^6/uL (4.30-5.70) 4.37 x10^6/uL (4.30-5.70) Hemoglobin 12.8 g/dL (13.0-17.5) 12.7 g/dL (13.0-17.5) Hematocrit 38.3 % (39.0-53.0) 38.3 % (39.0-53.0) Mean Corpuscular Volume 88 fL (79-100) 88 fL (79-100) Mean Corpuscular Hemoglobin 29 pg (25-35) 29 pg (25-35) Mean Corpuscular Hemoglobin Concent 33 g/dL (31-37) 33 g/dL (31-37) Red Cell Distribution Width 13.4 % (11.5-14.5) 13.8 % (11.5-14.5) Platelet Count 358 x10^3/uL (140-400) 329 x10^3/uL (140-400) Neutrophils (%) (Auto) 90 % (31-73) Lymphocytes (%) (Auto) 7 % (24-48) Monocytes (%) (Auto) 3 % (0-9) Eosinophils (%) (Auto) 0 % (0-3) Basophils (%) (Auto) 0 % (0-3) Neutrophils # (Auto) 10.6 x10^3uL (1.8-7.7) Lymphocytes # (Auto) 0.8 x10^3/uL (1.0-4.8) Monocytes # (Auto) 0.3 x10^3/uL (0.0-1.1) Eosinophils # (Auto) 0.0 x10^3/uL (0.0-0.7) Basophils # (Auto) 0.0 x10^3/uL (0.0-0.2) Segmented Neutrophils % 88 % (35-66) Band Neutrophils % 2 % (0-9) Lymphocytes % 9 % (24-48) Monocytes % 1 % (0-10) Platelet Estimate Adequate (ADEQUATE) Hepatitis B Core Total Antibody Negative (Negative) Laboratory Tests Test 08/01/18 09:22 White Blood Count 10.1 x10^3/uL (4.0-11.0) Red Blood Count 4.37 x10^6/uL (4.30-5.70) Hemoglobin 12.7 g/dL (13.0-17.5) Hematocrit 38.3 % (39.0-53.0) Mean Corpuscular Volume 88 fL (79-100) Mean Corpuscular Hemoglobin 29 pg (25-35) Mean Corpuscular Hemoglobin Concent 33 g/dL (31-37) Red Cell Distribution Width 13.8 % (11.5-14.5) Platelet Count 329 x10^3/uL (140-400) Sodium Level 144 mmol/L (136-145) Potassium Level 3.2 mmol/L (3.5-5.1) Chloride Level 106 mmol/L (98-107) Carbon Dioxide Level 26 mmol/L (21-32) Anion Gap 12 (6-14) Blood Urea Nitrogen 13 mg/dL (8-26) Creatinine 1.0 mg/dL (0.7-1.3) Estimated GFR (Cockcroft-Gault) 85.5 Glucose Level 109 mg/dL (70-99) Calcium Level 8.3 mg/dL (8.5-10.1) Medications Current Medications Hydromorphone HCl (Dilaudid) 0.5 mg PRN Q3HRS PRN IVP severe pain Last administered on 07/30/18 15:27; Start 07/30/18 at 15:15; Stop 07/30/18 at 18:07 ; Status DC Methylprednisolone Sodium Succinate (SOLU-Medrol 125MG VIAL) 60 mg DAILY IV Last administered on 08/01/18 09:23; Start 07/30/18 at 16:00 Sodium Chloride 1,000 ml @ 100 mls/hr Q10H IV Last administered on 08/01/18 08:51; Start 07/30/18 at 16:30; Stop 08/01/18 at 08:59; Status DC Metronidazole 100 ml @ 100 mls/hr Q8HRS IV Last administered on 08/01/18 05: 52; Start 07/30/18 at 17:00 Ciprofloxacin/ Dextrose 100 ml @ 100 mls/hr Q12HR IV Last administered on 08/01 09:22; Start 07/30/18 at 17:00 Hydromorphone HCl (Dilaudid) 1 mg PRN Q3HRS PRN IVP PAIN Last administered on 01:24; Start 07/30/18 at 18:15 Diphenhydramine HCl (Benadryl) 25 mg 1X ONCE IVP Last administered on 01:24; Start 07/31/18 at 01:15; Stop 07/31/18 at 01:16; Status DC Pantoprazole Sodium (Protonix) 40 mg DAILYAC PO Last administered on 08/01/18 05:52; Start 07/31/18 at 09:00 Tramadol HCl (Ultram) 50 mg PRN Q6HRS PRN PO PAIN Last administered on 14:45; Start 07/31/18 at 09:00 Lactobacillus Rhamnosus (Culturelle) 1 cap BID PO Last administered on at 09:24; Start 07/31/18 at 21:00 Diphenhydramine HCl (Benadryl) 25 mg PRN Q6HRS PRN IV ITCHING Last administered on 07/31/18at 21:56; Start 07/31/18 at 13:45 Vitals/I & O Vital Sign - Last 24 Hours 07/31/18 07/31/18 07/31/18 07/31/18 14:45 15:00 15:45 19:48 Temp 97.8 97.7 97.8 97.7 Pulse 76 86 Resp 18 18 16 16 B/P (MAP) 118/65 (82) 131/66 (87) Pulse Ox 97 95 95 O2 Delivery Room Air Room Air Room Air Room Air 07/31/18 08/01/18 08/01/18 08/01/18 23:34 03:17 07:00 08:00 Temp 97.5 97.6 97.6 97.5 97.6 97.6 Pulse 75 67 68 Resp 16 16 18 B/P (MAP) 117/57 (77) 111/63 (79) 131/71 (91) Pulse Ox 95 95 99 O2 Delivery Room Air Room Air Room Air Room Air 08/01/18 11:02 Temp 97.7 97.7 Pulse 78 Resp 18 B/P (MAP) 136/70 (92) Pulse Ox 96 O2 Delivery Room Air Intake and Output 07/31/18 07/31/18 08/01/18 15:00 23:00 07:00 Intake Total 300 ml 400 ml 360 ml Output Total 2 ml Balance 300 ml 398 ml 360 ml CARLO BEAUCHAMP MD Aug 01, 2018 11:53
[2018-08-01] MEDS ORDERED: IOHEXOL 300 MG/ML 100ML VIAL. IV ONE (13:00)
[2018-08-01] MEDS ORDERED: IOHEXOL 240 MG/ML 50ML VIAL. PO ONE (13:00)
[2018-08-01 15:00] VITALS: BP 124/68
[2018-08-01 19:00] VITALS: BP 144/82
[2018-08-01] MEDS: diphenhydrAMINE 50 MG/ML VIAL IV PRN (21:50)
[2018-08-01 23:00] VITALS: BP 129/65
[2018-08-01] MEDS: VANCOMYCIN 125 MG/2.5 ML ORAL SOLUTION. PO SCH (23:23)
[2018-08-02 03:00] VITALS: BP 135/62
[2018-08-02 05:07] LABS: HEMATOCRIT 37.9 % (39.0-53.0); HEMOGLOBIN 12.5 g/dL (13.0-17.5)
[2018-08-02] MEDS: PANTOPRAZOLE 40 MG TABLET.DR. PO SCH ×2 (06:11→09:46)
[2018-08-02] MEDS: HYDROmorphone 2 MG/ML VIAL IVP PRN ×2 (06:19→09:31)
[2018-08-02 07:00] VITALS: BP 130/80
[2018-08-02] MEDS ORDERED: IOHEXOL 300 MG/ML 100ML VIAL. IV ONE (07:30)
--- NOTE | 2018-08-02 08:42 | PDOC ---
Subjective: Subjective: No acute events over night. Patient reports he had well formed bowel movement. No bleeding per rectum. No fever. No abdominal pain. I have discussed regarding the final report of the stool study that was collected on 07/29 as out patient. He was found to be positive for C.diff. Objective: Vital Signs: Vital Signs Date Time Temp Pulse Resp B/P (MAP) Pulse Ox O2 Delivery O2 Flow Rate FiO2 08/02/18 07:00 97.9 68 17 130/80 (97) 100 Room Air 97.9 PE: GEN: NAD HEENT: Atraumatic, PERRLA LUNGS: CTAB HEART: RRR, no murmurs ABD: NABS, S/ND/NT, no masses EXTREMITY: No edema SKIN: No rashes, no jaundice NEURO/PSYCH: A & O 3 A/P: A 32 years old male patient with past medical history of mild ulcerations and inflammations in the colon that was presumed to be NSAIDs induced. he has family history of Crohn's disease. Now admitted with severe extensive colitis and was started with iv steroids and antibiotics ( including iv Flagyl). The stool studies collected on 07/29 now reported to be positive for positive C.diff ( with PCR). Concern that patient may have underlying IBD along with C.diff colitis. Recommendations: - D/c steroids and iv antibiotics. - Vancomycin 250mg QID for 14 days ( Started overnight). - Follow up in GI clinic next week to discuss further management pending his clinical course. - Patient can be discharged home today. Thank you for involving us in the care of this interesting patient. DAVINA PIERSON MD Aug 02, 2018 08:42
[2018-08-02] MEDS: methylPREDNISolone SOD SUCC PF 125 MG/2 ML VIAL. IV SCH (09:33)
[2018-08-02] MEDS: LACTOBACILLUS RHAMNOSUS GG 1 CAPSULE. PO SCH (09:46)
[2018-08-02] MEDS: VANCOMYCIN 125 MG/2.5 ML ORAL SOLUTION. PO SCH ×2 (09:47→12:56)
--- NOTE | 2018-08-02 09:58 | NUR ---
IP: Upon discontinuation of isolation, nurse notified me on pt having + C.diff prior to admission. There is no communication within the EMR to indicate that report. Pt to remain in contact plus precautions using brown sign.
[2018-08-02] MEDS ORDERED: VANC500V PO (10:08)
--- NOTE | 2018-08-02 10:31 | PDOC3 ---
Discharge Summary Visit Information Date of Admission: Jul 30, 2018 Date of Discharge: Aug 02, 2018 Admitting Diagnosis: colitis, abd pain Final Diagnosis 1. acute Colitis flare with hx of Crohn's disease. 2. acute infectious colitis, c. diff. 3. Bloody diarrhea secondary to above. 4. Narcotic dependence. 5. Itching from Dilaudid. Follow-up Dr. Brunner as outpatient re Remicade Brief Hospital Course Allergies Allergies Coded Allergies Type Severity Reaction Last Updated Verified acetaminophen Adverse Reaction Intermediate Nausea and Vomiting 07/30/18 Yes oxycodone Adverse Reaction Intermediate Nausea and Vomiting 07/30/18 Yes Vital Signs Vital Signs Date Time Temp Pulse Resp B/P (MAP) Pulse Ox O2 Delivery O2 Flow Rate FiO2 08/02/18 09:31 20 100 Room Air 08/02/18 07:00 97.9 68 130/80 (97) 97.9 Lab Results Laboratory Tests Test 08/01/18 09:22 08/02/18 04:27 White Blood Count 10.1 x10^3/uL (4.0-11.0) Red Blood Count 4.37 x10^6/uL (4.30-5.70) Hemoglobin 12.7 g/dL (13.0-17.5) 12.5 g/dL (13.0-17.5) Hematocrit 38.3 % (39.0-53.0) 37.9 % (39.0-53.0) Mean Corpuscular Volume 88 fL (79-100) Mean Corpuscular Hemoglobin 29 pg (25-35) Mean Corpuscular Hemoglobin Concent 33 g/dL (31-37) 33 g/dL (31-37) Red Cell Distribution Width 13.8 % (11.5-14.5) Platelet Count 329 x10^3/uL (140-400) Sodium Level 144 mmol/L (136-145) Potassium Level 3.2 mmol/L (3.5-5.1) Chloride Level 106 mmol/L (98-107) Carbon Dioxide Level 26 mmol/L (21-32) Anion Gap 12 (6-14) Blood Urea Nitrogen 13 mg/dL (8-26) Creatinine 1.0 mg/dL (0.7-1.3) Estimated GFR (Cockcroft-Gault) 85.5 Glucose Level 109 mg/dL (70-99) Calcium Level 8.3 mg/dL (8.5-10.1) Laboratory Tests Test 08/02/18 04:27 Hemoglobin 12.5 g/dL (13.0-17.5) Hematocrit 37.9 % (39.0-53.0) Mean Corpuscular Hemoglobin Concent 33 g/dL (31-37) Brief Hospital Course Mr. Curry is a 32 old adm[facility] severe abd pain and diarrhea hx chrons, seen in GI office, c.. diff pos, PO vanc, f.u clinic Discharge Information Condition at Discharge: Improved Follow Up: Weeks Disposition/Orders: D/C to Home Scheduled Vancomycin Hcl (Vancomycin Hcl) 500 Mg Vial, 250 MG PO [id number] for c diff colitis for 14 Days, #56 Prescribed by: ELVIA LAI on 08/02/18 1008 Patient Instructions Patient Instructions face to face 2 discussions > 30 min, plan of care, discussed with ID, not in consult for plan ELVIA LAI MD Aug 02, 2018 10:31
[2018-08-02 11:00] VITALS: BP 128/80
[2018-08-02] MEDS ORDERED: POTASSIUM CHLORIDE 20 MEQ TABLET.ER. PO ONE (11:00)
[2018-08-02] MEDS ORDERED: ONDANSETRON PF 4 MG/2 ML VIAL. IV PRN (12:45)
--- NOTE | 2018-08-02 13:54 | NUR ---
Discharge teaching provided written and verbal to pt,understanding verbalized. Dismissed to home with all belongings accompanied by his . Ambulated to exit with SBA at 1347.
--- NOTE | 2018-08-02 17:52 | RAD ---
CT study abdomen and pelvis with contrast-CT enterography INDICATIONS: Bloody diarrhea. Possible ulcerative colitis. TECHNIQUE: After oral ingestion of Volumen and IV infusion of 75 cc Omnipaque 300, helical CT scanning of the abdomen and pelvis was performed. PQRS compliance Statement One or more of the following individualized dose reduction techniques were utilized for this study: 1. Automated exposure control 2. Adjustment of the mA and/or kV according to patient size 3. Use of iterative reconstruction technique COMPARISON: 07/30/2018. FINDINGS: The liver and spleen and pancreas and gallbladder are normal. No extra hepatic biliary ductal dilatation is seen. No adrenal mass is evident. Both kidneys are normal without hydronephrosis or hydroureter. Urinary bladder wall is smooth. No focal aneurysmal dilatation of the abdominal aorta is seen. No enlarged abdominal or pelvic lymphadenopathy is evident. There is wall thickening of the rectum and distal sigmoid colon. The terminal ileum is unremarkable. The appendix is normal. There is mild wall thickening and enhancement of the jejunum. This may be seen normally. No free air or free fluid or mesenteric edema is seen. No lung base consolidation is evident. No lytic process is seen. IMPRESSION: There is wall thickening of the rectum and distal sigmoid colon. There is mild wall thickening and enhancement of the jejunum which may be seen normally. Certainly, mild enteritis may be present. However no prominent segmental narrowing of the small bowel is seen and no mesenteric edema is evident. The terminal ileum is normal. No other acute abnormality of the abdomen or pelvis is evident. Electronically signed by: aMnan Anand MD (08/02/2018 5:49 PM) [facility]
== END 2018-08-02 13:47 | disposition home or self-care (01) | DRG 372 ==
LOC: 5 NORTH 15:03
PROVIDERS: ADMIT Family Medicine; ATTEND Family Medicine
PROC: 0DJD8ZZ Inspection of Lower Intestinal Tract, Via Natural or Artificial Opening Endoscopic (ICD-10-PCS; principal; 2018-07-30)
DX: A04.72 Enterocolitis due to Clostridium difficile, not specified as recurrent (principal); K50.90 Crohn's disease, unspecified, without complications; F11.20 Opioid dependence, uncomplicated; G43.909 Migraine, unspecified, not intractable, without status migrainosus; Z88.5 Allergy status to narcotic agent; Z88.8 Allergy status to other drugs, medicaments and biological substances; Z83.79 Family history of other diseases of the digestive system
CPT/HCPCS: 36415; 74176; 74177; 80048; 80053; 85007; 85014; 85018; 85025; 85027; 85651; 86703; 86704; 86705; 86709; 86803; 87340; J0744; J1170; J1200; J2405; J2930; J3490; J7030; Q9967

== ENCOUNTER 2020-08-12 09:32 | Inpatient (IN) | payer OTHER ==
[~2020-08-12] VITALS: Ht 175.3 cm; Wt 110.0 kg
[~2020-08-12 09:32] MED LIST: ATOR20TA58 PO; LISI-517 PO; MESA400C2 PO; METO-239 PO; PANT40TA77 PO; PRED20TA PO; TRAM50TA PO; VANC125C10 PO; VANC500V PO
[2020-08-12 09:54] LABS: BILIRUBIN,URINE NEGATIVE (NEG); CLARITY,URINE CLEAR; COLOR,URINE YELLOW; NITRITE,URINE NEGATIVE (NEG); PROTEIN,URINE NEGATIVE (NEG-TRACE); UROBILINOGEN,URINE 0.2 mg/dL (0.2 mg/dL)
[2020-08-12 10:03] LABS: BACTERIA,URINE FEW /HPF (0-FEW); RBC,URINE 0 /HPF (0-2)
[2020-08-12] MEDS ORDERED: C.DIFF MED SCREEN BY RX. MC PRN (10:30)
[2020-08-12] MEDS ORDERED: ONDANSETRON PF 4 MG/2 ML VIAL. IVP ONE (10:30)
[2020-08-12] MEDS ORDERED: IV NORMAL SALINE 1000ML BAG 1,000 ML IV ONE (10:30)
[2020-08-12] MEDS ORDERED: MORPHINE SULFATE 4 MG/ML VIAL. IV ONE ×2 (10:30→13:15)
[2020-08-12 10:54] LABS: BASO % 0 % (0-3); EOS % 0 % (0-3); HEMATOCRIT 43.8 % (39.0-53.0); HEMOGLOBIN 14.5 g/dL (13.0-17.5); LYMPH # 1.2 x10^3/uL (1.0-4.8); LYMPH % 7 % (24-48); MEAN CORPUSCULAR HEMOGLOBIN 28 pg (25-35); MEAN CORPUSCULAR HGB CONC 33 g/dL (31-37); MEAN CORPUSCULAR VOLUME 83 fL (79-100); MONO # 0.5 x10^3/uL (0.0-1.1); MONO % 3 % (0-9); NEUT # 14.8 x10^3/uL (1.8-7.7); NEUT % 89 % (31-73); PLATELET COUNT 406 x10^3/uL (140-400); RED BLOOD COUNT 5.26 x10^6/uL (4.30-5.70); RED CELL DISTRIBUTION WIDTH 15.4 % (11.5-14.5); WHITE BLOOD COUNT 16.6 x10^3/uL (4.0-11.0)
[2020-08-12 11:07] LABS: CALCIUM 8.6 mg/dL (8.5-10.1); CREATININE 1.4 mg/dL (0.7-1.3); GFR 57.3; POTASSIUM 4.2 mmol/L (3.5-5.1)
[2020-08-12 11:13] LABS: ALBUMIN/GLOBULIN RATIO 0.7 (1.0-1.7); MAGNESIUM 2.2 mg/dL (1.8-2.4); TOTAL BILIRUBIN 0.4 mg/dL (0.2-1.0); TOTAL PROTEIN 7.6 g/dL (6.4-8.2)
[2020-08-12] MEDS ORDERED: IOHEXOL 300 MG/ML 100ML VIAL. IV ONE (12:00)
--- NOTE | 2020-08-12 12:22 | RAD ---
EXAM: Abdomen and pelvis CT with intravenous contrast. HISTORY: Pain. Inflammatory bowel disease. TECHNIQUE: Computed tomographic images of the abdomen and pelvis were obtained following the administ ration of intravenous contrast. Multiplanar reformatting was performed. *One or more of the following individualized dose reduction techniques were utilized for this examina tion: 1. Automated exposure control. 2. Adjustment of the mA and/or kV according to patient size. 3. Use of iterative reconstruction technique. COMPARISON: 01/07/2019. FINDINGS: Evaluation of the lower thorax demonstrates minimal atelectasis. There is no infiltrate or pleural effusion. No hepatic lesion is seen. The gallbladder is contracted due to the suspected postp randial status of patient. The pancreas, spleen, stomach, and adrenal glands are unremarkable. There is a 1.1 cm hypodense lesion within the lateral mid zone of the left kidney, the attenuation of which is greater than simple fluid. There is no hydronephrosis. The appendix is absent. There is circumferential wall thickening involving the colon from the distal transverse colon to the proximal sigmoid colon, consistent with acute colitis. There is associated mi ld pericolonic fatty stranding. There is also mild wall thickening involving the cecum which may be d ue to acute segmental colitis. There are few surrounding prominent pericecal lymph nodes. There is no bowel structure in. There is no free air. The bladder is unremarkable. The aorta is normal in calibe r. There is no suspicious osseous lesion. There is grade 1 anterolisthesis with a right pars defect a t L5-S1. IMPRESSION: 1. Acute colitis extending from the distal transverse colon to the proximal sigmoid colon. There may also be segmental colitis involving the cecum. This is likely due to reported known inflammatory eduardo l disease rather than infectious colitis. 2. Stable 1.1 cm hypodense lesion within the left kidney. This may be a slightly complicated cyst. No nemergent renal survey can be performed to confirm benignity if there is clinical concern. 3. Note is made that punctate nontracking renal stones demonstrated on prior studies are likely obscu red on the current exam due to the presence of contrast. There is no hydronephrosis. Electronically signed by: Elvira Manley MD (08/12/2020 12:19 PM) [id number]
--- NOTE | 2020-08-12 12:40 | PHYS DOC ---
Past Medical History Past Medical History: Depression, High Cholesterol, Hypertension, [place] Additional Past Medical Histor: CROHN'S Past Surgical History: Other Additional Past Surgical Histo: KNEE SURG 19 Smoking Status: Never Smoker Alcohol Use: Occasionally Drug Use: None General Adult EDM: Chief Complaint: GI PROBLEM HPI: HPI: Patient is a 34 year old male with a history of Crohn disease, presented to ER for evaluation of abdominal pain, nausea vomiting diarrhea. Patient noted blood in his stool. Symptoms have been going on for about a month. Patient has been evaluated by his GI doctor, he has been on several rounds of steroid. Patient denies any fever, no cough, no trouble breathing.. Patient said he felt better couple weeks ago when he was on steroid, but after he was done with steroid his symptoms become more severe. Review of Systems: Review of Systems: Constitutional: Denies fever or chills. [] Eyes: Denies change in visual acuity. [] HENT: Denies nasal congestion or sore throat. [] Respiratory: Denies cough or shortness of breath. [] Cardiovascular: Denies chest pain or edema. [] GI: Positive for abdominal pain, nausea vomiting, bloody diarrhea. : Denies dysuria. [] Musculoskeletal: Denies back pain or joint pain. [] Integument: Denies rash. [] Neurologic: Denies headache, focal weakness or sensory changes. [] Endocrine: Denies polyuria or polydipsia. [] Lymphatic: Denies swollen glands. [] Psychiatric: Denies depression or anxiety. [] Heart Score: C/O Chest Pain: N/A Risk Factors: Risk Factors: DM, Current or recent (<one month) smoker, HTN, HLP, family history of CAD, obesity. Risk Scores: Score 0 - 3: 2.5% MACE over next 6 weeks - Discharge Home Score 4 - 6: 20.3% MACE over next 6 weeks - Admit for Clinical Observation Score 7 - 10: 72.7% MACE over next 6 weeks - Early Invasive Strategies Current Medications: Current Medications Medications (Trade) Dose Ordered Sig/Jose Martin Start Time Stop Time Status Last Admin Dose Admin Iohexol (Omnipaque 300 Mg/ml) 75 ml 1X ONCE 08/12/20 12:00 08/12/20 12:01 DC 08/12/20 11:53 75 ML Morphine Sulfate (Morphine Sulfate) 4 mg 1X ONCE 08/12/20 10:30 08/12/20 10:31 DC 08/12/20 10:38 4 MG Ondansetron HCl (Zofran) 4 mg 1X ONCE 08/12/20 10:30 08/12/20 10:31 DC 08/12/20 10:37 4 MG Pharmacy Consult ([facility] Med Screen By Rx) 1 each PRN 1X PRN 08/12/20 10:30 Sodium Chloride 1,000 ml @ 1,000 mls/hr 1X ONCE 08/12/20 10:30 08/12/20 11:29 DC 08/12/20 10:38 1,000 MLS/HR Allergies: Allergies: Allergies Coded Allergies Type Severity Reaction Last Updated Verified acetaminophen Adverse Reaction Intermediate Nausea and Vomiting 07/30/18 Yes oxycodone Adverse Reaction Intermediate Nausea and Vomiting 07/30/18 Yes Physical Exam: PE: Constitutional: Well developed, well nourished, no acute distress, non-toxic appearance. [] HENT: Normocephalic, atraumatic, bilateral external ears normal, oropharynx moist, no oral exudates, nose normal. [] Eyes: PERRLA, EOMI, conjunctiva normal, no discharge. [] Neck: Normal range of motion, no tenderness, supple, no stridor. [] Cardiovascular:Heart rate regular rhythm, no murmur [] Lungs & Thorax: Bilateral breath sounds clear to auscultation [] Abdomen: Bowel sounds normal, soft, there is tenderness to palpation in lower abdominal area, no masses, no pulsatile masses. [] Skin: Warm, dry, no erythema, no rash. [] Back: No tenderness, no CVA tenderness. [] Extremities: No tenderness, no cyanosis, no clubbing, ROM intact, no edema. [] Neurologic: Alert and oriented X 3, normal motor function, normal sensory function, no focal deficits noted. [] Psychologic: Affect normal, judgement normal, mood normal. [] Current Patient Data: Labs: Laboratory Tests Test 08/12/20 09:38 08/12/20 10:40 Urine Collection Type Void Urine Color Yellow Urine Clarity Clear Urine pH 8.0 (<5.0-8.0) Urine Specific [place] 1.020 (1.000-1.030) Urine Protein Negative mg/dL (NEG-TRACE) Urine Glucose (UA) Negative mg/dL (NEG) Urine Ketones (Stick) Negative mg/dL (NEG) Urine Blood Negative (NEG) Urine Nitrite Negative (NEG) Urine Bilirubin Negative (NEG) Urine Urobilinogen Dipstick 0.2 mg/dL (0.2 mg/dL) Urine Leukocyte Esterase Negative (NEG) Urine RBC 0 /HPF (0-2) Urine WBC 5-10 /HPF (0-4) Urine Bacteria Few /HPF (0-FEW) White Blood Count 16.6 x10^3/uL (4.0-11.0) H Red Blood Count 5.26 x10^6/uL (4.30-5.70) Hemoglobin 14.5 g/dL (13.0-17.5) Hematocrit 43.8 % (39.0-53.0) Mean Corpuscular Volume 83 fL (79-100) Mean Corpuscular Hemoglobin 28 pg (25-35) Mean Corpuscular Hemoglobin Concent 33 g/dL (31-37) Red Cell Distribution Width 15.4 % (11.5-14.5) H Platelet Count 406 x10^3/uL (140-400) H Neutrophils (%) (Auto) 89 % (31-73) H Lymphocytes (%) (Auto) 7 % (24-48) L Monocytes (%) (Auto) 3 % (0-9) Eosinophils (%) (Auto) 0 % (0-3) Basophils (%) (Auto) 0 % (0-3) Neutrophils # (Auto) 14.8 x10^3/uL (1.8-7.7) H Lymphocytes # (Auto) 1.2 x10^3/uL (1.0-4.8) Monocytes # (Auto) 0.5 x10^3/uL (0.0-1.1) Eosinophils # (Auto) 0.0 x10^3/uL (0.0-0.7) Basophils # (Auto) 0.0 x10^3/uL (0.0-0.2) Platelet Estimate Pending Sodium Level 135 mmol/L (136-145) L Potassium Level 4.2 mmol/L (3.5-5.1) Chloride Level 101 mmol/L (98-107) Carbon Dioxide Level 28 mmol/L (21-32) Anion Gap 6 (6-14) Blood Urea Nitrogen 18 mg/dL (8-26) Creatinine 1.4 mg/dL (0.7-1.3) H Estimated GFR (Cockcroft-Gault) 57.3 BUN/Creatinine Ratio 13 (6-20) Glucose Level 97 mg/dL (70-99) Calcium Level 8.6 mg/dL (8.5-10.1) Magnesium Level 2.2 mg/dL (1.8-2.4) Total Bilirubin 0.4 mg/dL (0.2-1.0) Aspartate Amino Transferase (AST) 14 U/L (15-37) L Alanine Aminotransferase (ALT) 21 U/L (16-63) Alkaline Phosphatase 84 U/L (46-116) Total Protein 7.6 g/dL (6.4-8.2) Albumin 3.0 g/dL (3.4-5.0) L Albumin/Globulin Ratio 0.7 (1.0-1.7) L Lipase 72 U/L (73-393) L Laboratory Tests 08/12/20 10:40 Laboratory Tests 08/12/20 10:40 Vital Signs: Vital Signs Date Time Temp Pulse Resp B/P (MAP) Pulse Ox O2 Delivery O2 Flow Rate FiO2 08/12/20 11:29 88 146/81 (102 95 Room Air 08/12/20 10:38 16 08/12/20 09:45 97.8 97.8 EKG: EKG: [] Radiology/Procedures: Radiology/Procedures: [][facility] [address] [place], [place] [id number] IMAGING REPORT Signed PATIENT: CARLOS ATKINS ACCOUNT: [id number] : 1985 LOCATION: ER AGE: 34 SEX: M EXAM STATUS: REG ER ORD. PHYSICIAN: HOPE GRACIA DO REASON: abdominal pain for 2 weeks, H/O CROHN'S PROCEDURE: CT ABD PELV W/ IV CONTRST ONLY EXAM: Abdomen and pelvis CT with intravenous contrast. HISTORY: Pain. Inflammatory bowel disease. TECHNIQUE: Computed tomographic images of the abdomen and pelvis were obtained following the administration of intravenous contrast. Multiplanar reformatting was performed. *One or more of the following individualized dose reduction techniques were utilized for this examination: 1. Automated exposure control. 2. Adjustment of the mA and/or kV according to patient size. 3. Use of iterative reconstruction technique. COMPARISON: 01/07/2019. FINDINGS: Evaluation of the lower thorax demonstrates minimal atelectasis. There is no infiltrate or pleural effusion. No hepatic lesion is seen. The gallbladder is contracted due to the suspected postprandial status of patient. The pancreas, spleen, stomach, and adrenal glands are unremarkable. There is a 1.1 cm hypodense lesion within the lateral mid zone of the left kidney, the attenuation of which is greater than simple fluid. There is no hydronephrosis. The appendix is absent. There is circumferential wall thickening involving the colon from the distal transverse colon to the proximal sigmoid colon, consistent with acute colitis. There is associated mild pericolonic fatty stranding. There is also mild wall thickening involving the cecum which may be due to acute segmental colitis. There are few surrounding prominent pericecal lymph nodes. There is no bowel structure in. There is no free air. The bladder is unrema rkable. The aorta is normal in caliber. There is no suspicious osseous lesion. There is grade 1 anterolisthesis with a right pars defect at L5-S1. IMPRESSION: 1. Acute colitis extending from the distal transverse colon to the proximal sigmoid colon. There may also be segmental colitis involving the cecum. This is likely due to reported known inflammatory bowel disease rather than infectious colitis. 2. Stable 1.1 cm hypodense lesion within the left kidney. This may be a slightly complicated cyst. Nonemergent renal survey can be performed to confirm benignity if there is clinical concern. 3. Note is made that punctate nontracking renal stones demonstrated on prior studies are likely obscured on the current exam due to the presence of contrast. There is no hydronephrosis. Electronically signed by: Elvira Dennis MD (08/12/2020 12:19 PM) [id number] DICTATED and SIGNED BY: ELVIRA DENNIS MD DATE: 08/12/20 [id number] 0 Course & Med Decision Making: Course & Med Decision Making Pertinent Labs and Imaging studies reviewed. (See chart for details) Patient is a 34-year-old male with history of chronic, presented to ER due to nausea vomiting, abdominal pain, bloody diarrhea. CT scan of his abdomen and pelvis consistent with Crohn's flare. Patient be admitted to hospital for further evaluation and treatment. Discussed with Dr. Field, will admit him to the hospitalist service with GI consult. Domo Disclaimer: Domo Disclaimer: This electronic medical record was generated, in whole or in part, using a voice recognition dictation system. Departure Departure Impression: Primary Impression: Exacerbation of Crohn's disease of large intestine Additional Impression: Abdominal pain Disposition: ADMITTED INPT THIS HOSP Admitting Physician: MIGUEL (Dr. Field) Condition: STABLE Referrals: JOANNA NUNEZ MD (PCP) HOPE GRACIA DO Aug 12, 2020 12:40
[2020-08-12 13:01] LABS: % BANDS 20 % (0-9); % LYMPHS 9 % (24-48); % MONOS 3 % (0-10); % SEGS 68 % (35-66)
[2020-08-12 13:02] LABS: ANISOCYTOSIS PRESENT; PLT ESTIMATE INCREASED (ADEQUATE)
[2020-08-12 13:03] LABS: TOXIC GRANULATION PRESENT
[2020-08-12] MEDS ORDERED: ONDANSETRON PF 4 MG/2 ML VIAL. IV PRN (13:15)
--- NOTE | 2020-08-12 14:02 | PDOC2 ---
GI CONSULT Date of Service: DATE: 08/12/20 TIME: 13:45 Reason For Consult: Crohn's flare HPI: HPI: 34 y/o male w/ IBD history (initially thought UC, now maybe Corhn's) on prednisone 50mg QD + Entyvio (started >1 year ago, last infusion 08/04/20) + balsalazide BID-TID who see Laura Kruger PA-C and Dr. Santoyo at our office. Diagnosed in 2019, last colonoscopy (results unavailable for review at this time) sometimes in 2019. Flare symptoms (diarrhea, abd pain - currently diffuse cramping, but most often RLQ) since 05/2020. On varying doses of steroids essentially since then - recently 50mg QD x 5 days, took 40mg this morning. This week has felt terrible - more than 20 stools per night w/ some bleeding, terrible cramps, vomiting, belching - "I feel like I can't get the gas out." Says has been to [facility] and [facility] several times over the past couple years - reports CTs show left-sided inflammation. H/o C Diff. C Diff testing ordered by our office last week but he has been too sick complete. 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 H/o GERD on pantoprazole 40mg QD; had EGD w/ non-specific gastritis (negative for H. pylori) in 2019. No hematemesis, dysphagia, weight loss, or melena. No GB, liver, pancreas, or PUD history. Hepatitis panel negative here in 2019. Med list also includes dicyclomine and promethazine. Had COVID in 06/2020 - "headcold" symptoms, lost sense of taste and smell - GI issues started before. PMH: PMH: NSTEMI, HTN, HLD, depression, headaches, low testosterone, IBD, C Diff, GERD, COVID (06/2020) vasectomy, left knee surgery (microfracture), appendectomy, removal of benign jaw tumor, LASIK FH: Family History: CAD Social History: Smoke: No ALCOHOL: rare Drugs: None ROS: GEN: Denies fevers, chills, sweats HEENT: Denies blurred vision, sore throat CV: Denies chest pain RESP: Denies shortness of air, cough GI: Per HPI : Denies hematuria, dysuria ENDO: Denies weight changes NEURO: Denies confusion, dizziness MSK: Denies weakness, joint pain/swelling SKIN: Denies jaundice, pruritus Vitals: Vitals: Vital Signs Date Time Temp Pulse Resp B/P (MAP) Pulse Ox O2 Delivery O2 Flow Rate FiO2 08/12/20 13:18 18 95 08/12/20 11:29 88 146/81 (102) Room Air 08/12/20 09:45 97.8 97.8 Labs: Labs: Laboratory Tests Test 08/12/20 09:38 08/12/20 10:40 Urine Collection Type Void Urine Color Yellow Urine Clarity Clear Urine pH 8.0 (<5.0-8.0) Urine Specific [place] 1.020 (1.000-1.030) Urine Protein Negative mg/dL (NEG-TRACE) Urine Glucose (UA) Negative mg/dL (NEG) Urine Ketones (Stick) Negative mg/dL (NEG) Urine Blood Negative (NEG) Urine Nitrite Negative (NEG) Urine Bilirubin Negative (NEG) Urine Urobilinogen Dipstick 0.2 mg/dL (0.2 mg/dL) Urine Leukocyte Esterase Negative (NEG) Urine RBC 0 /HPF (0-2) Urine WBC 5-10 /HPF (0-4) Urine Bacteria Few /HPF (0-FEW) White Blood Count 16.6 x10^3/uL (4.0-11.0) Red Blood Count 5.26 x10^6/uL (4.30-5.70) Hemoglobin 14.5 g/dL (13.0-17.5) Hematocrit 43.8 % (39.0-53.0) Mean Corpuscular Volume 83 fL (79-100) Mean Corpuscular Hemoglobin 28 pg (25-35) Mean Corpuscular Hemoglobin Concent 33 g/dL (31-37) Red Cell Distribution Width 15.4 % (11.5-14.5) Platelet Count 406 x10^3/uL (140-400) Neutrophils (%) (Auto) 89 % (31-73) Lymphocytes (%) (Auto) 7 % (24-48) Monocytes (%) (Auto) 3 % (0-9) Eosinophils (%) (Auto) 0 % (0-3) Basophils (%) (Auto) 0 % (0-3) Neutrophils # (Auto) 14.8 x10^3/uL (1.8-7.7) Lymphocytes # (Auto) 1.2 x10^3/uL (1.0-4.8) Monocytes # (Auto) 0.5 x10^3/uL (0.0-1.1) Eosinophils # (Auto) 0.0 x10^3/uL (0.0-0.7) Basophils # (Auto) 0.0 x10^3/uL (0.0-0.2) Segmented Neutrophils % 68 % (35-66) Band Neutrophils % 20 % (0-9) Lymphocytes % 9 % (24-48) Monocytes % 3 % (0-10) Toxic Granulation Present Dohle Bodies Present Platelet Estimate Increased (ADEQUATE) Anisocytosis Present Sodium Level 135 mmol/L (136-145) Potassium Level 4.2 mmol/L (3.5-5.1) Chloride Level 101 mmol/L (98-107) Carbon Dioxide Level 28 mmol/L (21-32) Anion Gap 6 (6-14) Blood Urea Nitrogen 18 mg/dL (8-26) Creatinine 1.4 mg/dL (0.7-1.3) Estimated GFR (Cockcroft-Gault) 57.3 BUN/Creatinine Ratio 13 (6-20) Glucose Level 97 mg/dL (70-99) Calcium Level 8.6 mg/dL (8.5-10.1) Magnesium Level 2.2 mg/dL (1.8-2.4) Total Bilirubin 0.4 mg/dL (0.2-1.0) Aspartate Amino Transf (AST/SGOT) 14 U/L (15-37) Alanine Aminotransferase (ALT/SGPT) 21 U/L (16-63) Alkaline Phosphatase 84 U/L (46-116) Total Protein 7.6 g/dL (6.4-8.2) Albumin 3.0 g/dL (3.4-5.0) Albumin/Globulin Ratio 0.7 (1.0-1.7) Lipase 72 U/L (73-393) Allergies: Coded Allergies: acetaminophen (Verified Adverse Reaction, Intermediate, Nausea and Vomiting, 07/30/18) oxycodone (Verified Adverse Reaction, Intermediate, Nausea and Vomiting, 07/30/18) Medications: Current Medications Medications (Trade) Dose Ordered Sig/Jose Martin Route PRN Reason Start Time Stop Time Status Last Admin Dose Admin Ondansetron HCl (Zofran) 4 mg 1X ONCE IVP 08/12/20 10:30 08/12/20 10:31 DC 08/12/20 10:37 Morphine Sulfate (Morphine Sulfate) 4 mg 1X ONCE IV 08/12/20 10:30 08/12/20 10:31 DC 08/12/20 10:38 Sodium Chloride 1,000 ml @ 1,000 mls/hr 1X ONCE IV 08/12/20 10:30 08/12/20 11:29 DC 08/12/20 10:38 Iohexol (Omnipaque 300 Mg/ml) 75 ml 1X ONCE IV 08/12/20 12:00 08/12/20 12:01 DC 08/12/20 11:53 Morphine Sulfate (Morphine Sulfate) 4 mg 1X ONCE IV 08/12/20 13:15 08/12/20 13:16 DC 08/12/20 13:18 Imaging: Imaging: CT A/P FINDINGS: Evaluation of the lower thorax demonstrates minimal atelectasis. There is no infiltrate or pleural effusion. No hepatic lesion is seen. The gallbladder is contracted due to the suspected postprandial status of patient. The pancreas, spleen, stomach, and adrenal glands are unremarkable. There is a 1.1 cm hypodense lesion within the lateral mid zone of the left kidney, the attenuation of which is greater than simple fluid. There is no hydronephrosis. The appendix is absent. There is circumferential wall thickening involving the colon from the distal transverse colon to the proximal sigmoid colon, consistent with acute colitis. There is associated mild pericolonic fatty stranding. There is also mild wall thickening involving the cecum which may be due to acute segmental colitis. There are few surrounding prominent pericecal lymph nodes. There is no bowel structure in. There is no free air. The bladder is unremarkable. The aorta is normal in caliber. There is no suspicious osseous lesion. There is grade 1 anterolisthesis with a right pars defect at L5-S1. IMPRESSION: 1. Acute colitis extending from the distal transverse colon to the proximal sigmoid colon. There may also be segmental colitis involving the cecum. This is likely due to reported known inflammatory bowel disease rather than infectious colitis. 2. Stable 1.1 cm hypodense lesion within the left kidney. This may be a slightly complicated cyst. Nonemergent renal survey can be performed to confirm benignity if there is clinical concern. 3. Note is made that punctate nontracking renal stones demonstrated on prior studies are likely obscured on the current exam due to the presence of contrast. There is no hydronephrosis. PE: GEN: NAD HEENT: Atraumatic, PERRL LUNGS: CTAB HEART: RRR ABD: NABS, soft, non-distended, non-specific tenderness diffusely (currently mild) EXTREMITY: No edema SKIN: No rashes, no jaundice NEURO/PSYCH: A & O 3 A/P: A/P: IBD - Crohn's vs UC Leukocytosis on steroids Diarrhea/hematochezia, abd pain, vomiting GERD - on PPI CRC screen - UTD H/o C Diff (recurrent) -- Check C Diff, enteric panel, lactoferrin. Start IV steroids. Clear liquid diet. Continue PPI - IV for now, change to PO as able. FER ROSENBERG Aug 12, 2020 14:01
[2020-08-12 15:53] VITALS: BP 137/79
[2020-08-12] MEDS: MORPHINE SULFATE 4 MG/ML VIAL. IV PRN ×2 (16:28→22:36)
[2020-08-12] MEDS: PANTOPRAZOLE IV PUSH 40 MG VIAL. IVP SCH (16:29)
[2020-08-12] MEDS: IV NORMAL SALINE 1000ML BAG 1,000 ML IV SCH (16:38)
--- NOTE | 2020-08-12 18:55 | HP ---
ADMIT DATE: 08/12/2020 CHIEF COMPLAINT: Abdominal pain. HISTORY OF PRESENT ILLNESS: The patient is a pleasant 34-year-old male who has got chronic Crohn's. He has been diagnosed about 18 months ago. He states recently they have been treating him with Entyvio, steroids and some other medicine that "starts with a B." He is still having symptoms. Symptoms are rated at 9/10. He has associated nausea. It has been occurring off and on for months, described as very irritating, worse with food, better with no food. I discussed the case with the ER physician. We are going to admit the patient, start him on some IV steroids and consult GI. PAST MEDICAL HISTORY: Inflammatory bowel disease with Crohn's, hypertension, coronary artery disease, myocardial infarction, depression, headaches, low testosterone, C. diff, GERD, COVID-19 in June of this year, vasectomy, left knee surgery, appendectomy, benign jaw tumor, LASIK surgery. ALLERGIES: TYLENOL AND OXYCODONE. FAMILY HISTORY: Diabetes. 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 He does not drink, smoke or take drugs. MEDICATIONS: Reviewed, please refer to the MRAD. REVIEW OF SYSTEMS: GENERAL: No history of weight change, weakness or fevers. SKIN: No bruising, hair changes or rashes. EYES: No blurred, double or loss of vision. NOSE AND THROAT: No history of nosebleeds, hoarseness or sore throat. HEART: No history of palpitations, chest pain or shortness of breath on exertion. LUNGS: Denies cough, hemoptysis, wheezing or shortness of breath. GASTROINTESTINAL: He complains of abdominal pain, nausea, vomiting. GENITOURINARY: No history of frequency, urgency, hesitancy or nocturia. NEUROLOGIC: Denies history of numbness, tingling, tremor or weakness. PSYCHIATRIC: No history of panic, anxiety or depression. ENDOCRINE: No history of heat or cold intolerance, polyuria or polydipsia. EXTREMITIES: Denies muscle weakness, joint pain, pain on walking or stiffness. PHYSICAL EXAMINATION: VITALS: Within normal limits and are stable. GENERAL: No apparent distress. Alert and oriented. HEENT: Normal cephalic atraumatic, external auditory canals are patent. EYES: Extraocular muscles are intact, pupils are equally round and reactive to light and accommodation. MUSCULOSKELETAL: Well developed, well nourished, good range of motion. ENDOCRINE: No thyromegaly was palpated. LYMPHATICS: No cervical chain or axillary nodes were noted. HEMATOPOIETIC: No bruising. NECK: Supple, no JVD, no thyromegaly was noted. LUNGS: Clear to auscultation in all lung franco without rhonchi or wheezing. HEART: RRR, S1, S2 present. Peripheral pulses intact, no obvious murmurs were noted. ABDOMEN: Soft, nontender. Positive bowel sounds no organomegaly, normal bowel sounds. EXTREMITIES: Without any cyanosis, clubbing, or edema. Pedal pulses intact, Homans sign is negative. NEUROLOGIC: Normal speech, normal tone. A & O x 3, moves all extremities, no obvious focal deficits. PSYCHIATRIC: Normal affect, normal mood. Stable. SKIN: No ulcerations or rashes, good skin turgor, no jaundice. VASCULAR: Good capillary refill, neurovascular bundle appears to be intact. LABORATORY DATA: White count 16. A CT of the abdomen, which shows acute colitis. ASSESSMENT AND PLAN: Crohn's flare. The patient has been admitted. We will consult GI. IV steroids, home medications, DVT prophylaxis. Full code. PROGNOSIS: Long-term guarded. NELLI BOWDEN DO DR: MAYRA/nicky JOB#: [id number] / [id number]
[2020-08-12 19:00] VITALS: BP 129/77
[2020-08-12] MEDS ORDERED: ESCITALOPRAM OX10 MG PO (19:45)
[2020-08-12] MEDS: ATORVASTATIN CALCIUM 20 MG TABLET PO SCH (21:39)
[2020-08-12] MEDS: CITALOPRAM 20 MG TABLET. PO SCH (21:39)
[2020-08-12] MEDS: methylPREDNISolone SOD SUCC PF 40 MG/ML VIAL. IV SCH (21:39)
[2020-08-12] MEDS: ONDANSETRON PF 4 MG/2 ML VIAL. IVP PRN (22:36)
[2020-08-12 23:00] VITALS: BP 121/73
[2020-08-13] MEDS: IV NORMAL SALINE 1000ML BAG 1,000 ML IV SCH ×2 (02:35→10:46)
[2020-08-13 03:00] VITALS: BP 120/68
[2020-08-13] MEDS: MORPHINE SULFATE 4 MG/ML VIAL. IV PRN ×2 (04:22→08:28)
[2020-08-13] MEDS: ONDANSETRON PF 4 MG/2 ML VIAL. IVP PRN ×2 (04:44→18:26)
[2020-08-13] MEDS: PANTOPRAZOLE IV PUSH 40 MG VIAL. IVP SCH (06:55)
[2020-08-13 07:00] VITALS: BP 126/81
[2020-08-13] MEDS ORDERED: PANTOPRAZOLE 40 MG TABLET.DR. PO SCH (07:30)
[2020-08-13] MEDS ORDERED: MESALAMINE 400 MG CAP.DRTAB. PO SCH (07:30)
[2020-08-13] MEDS ORDERED: DIPH25CA58 PO (07:35)
[2020-08-13] MEDS ORDERED: CETI10TA74 PO (07:35)
[2020-08-13] MEDS ORDERED: DICY10CA3 PO (07:35)
[2020-08-13] MEDS ORDERED: BALS750C6 PO (07:35)
[2020-08-13 07:46] LABS: HEMOGLOBIN 13.6 g/dL (13.0-17.5); RED BLOOD COUNT 5.02 x10^6/uL (4.30-5.70); RED CELL DISTRIBUTION WIDTH 14.7 % (11.5-14.5); WHITE BLOOD COUNT 14.6 x10^3/uL (4.0-11.0)
[2020-08-13 08:22] LABS: CALCIUM 8.3 mg/dL (8.5-10.1); GFR 84.5
--- NOTE | 2020-08-13 08:25 | PDOC ---
PROGRESS NOTES Date of Service: DATE: 08/13/20 TIME: 08:24 Chief Complaint Chief Complaint ASSESSMENT AND PLAN: acute Crohn's flare. extending from the distal transverse colon to the proximal sigmoid colon. also segmental colitis involving the cecum morbid obesity plan admitted. consult GI. IV steroids, home medications, DVT prophylaxis. Full code. 08-13 five small bloody mucous stools since 3:00 a.m. History of Present Illness History of Present Illness CHIEF COMPLAINT: Abdominal pain. HISTORY OF PRESENT ILLNESS: The patient is a pleasant 34-year-old male who has got chronic Crohn's. He has been diagnosed about 18 months ago. He states recently they have been treating him with Entyvio, steroids and some other medicine that "starts with a B." He is still having symptoms. Symptoms are rated at 9/10. He has associated nausea. It has been occurring off and on for months, described as very irritating, worse with food, better with no food. I discussed the case with the ER physician. We are going to admit the patient, start him on some IV steroids and consult GI. PAST MEDICAL HISTORY: Inflammatory bowel disease with Crohn's, hypertension, coronary artery disease, myocardial infarction, depression, headaches, low testosterone, C. diff, GERD, COVID-19 in June of this year, vasectomy, left knee surgery, appendectomy, benign jaw tumor, LASIK surgery. ALLERGIES: TYLENOL AND OXYCODONE. FAMILY HISTORY: Diabetes. 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 MEDICATIONS: Reviewed, please refer to the MRAD. REVIEW OF SYSTEMS: GENERAL: No history of weight change, weakness or fevers. SKIN: No bruising, hair changes or rashes. EYES: No blurred, double or loss of vision. NOSE AND THROAT: No history of nosebleeds, hoarseness or sore throat. HEART: No history of palpitations, chest pain or shortness of breath on exertion. LUNGS: Denies cough, hemoptysis, wheezing or shortness of breath. GASTROINTESTINAL: He complains of abdominal pain, nausea, vomiting. GENITOURINARY: No history of frequency, urgency, hesitancy or nocturia. NEUROLOGIC: Denies history of numbness, tingling, tremor or weakness. PSYCHIATRIC: No history of panic, anxiety or depression. ENDOCRINE: No history of heat or cold intolerance, polyuria or polydipsia. EXTREMITIES: Denies muscle weakness, joint pain, pain on walking or stiffness. Flare symptoms (diarrhea, abd pain - currently diffuse cramping, but most often RLQ) since 05/2020. Vitals Vitals Vital Signs Date Time Temp Pulse Resp B/P (MAP) Pulse Ox O2 Delivery O2 Flow Rate FiO2 08/13/20 07:00 97.5 83 18 126/81 (96) 94 Room Air 97.5 Physical Exam Physical Exam PHYSICAL EXAMINATION: VITALS: Within normal limits and are stable. GENERAL: No apparent distress. Alert and oriented. HEENT: Normal cephalic atraumatic, external auditory canals are patent. EYES: Extraocular muscles are intact, pupils are equally round and reactive to light and accommodation. MUSCULOSKELETAL: Well developed, well nourished, good range of motion. ENDOCRINE: No thyromegaly was palpated. LYMPHATICS: No cervical chain or axillary nodes were noted. HEMATOPOIETIC: No bruising. NECK: Supple, no JVD, no thyromegaly was noted. LUNGS: Clear to auscultation in all lung franco without rhonchi or wheezing. HEART: RRR, S1, S2 present. Peripheral pulses intact, no obvious murmurs were noted. ABDOMEN: Soft, nontender. Positive bowel sounds no organomegaly, normal bowel sounds. EXTREMITIES: Without any cyanosis, clubbing, or edema. Pedal pulses intact, Homans sign is negative. NEUROLOGIC: Normal speech, normal tone. A & O x 3, moves all extremities, no obvious focal deficits. PSYCHIATRIC: Normal affect, normal mood. Stable. SKIN: No ulcerations or rashes, good skin turgor, no jaundice. VASCULAR: Good capillary refill, neurovascular bundle appears to be intact. General: Alert, Oriented X3, Cooperative, No acute distress Heart: Regular rate Lungs: Clear Abdomen: Normal bowel sounds, Soft Extremities: No clubbing, No cyanosis, No edema Skin: No significant lesion Labs LABS Signed PATIENT: CARLSO ATKINS ACCOUNT: [id number] : 1985 LOCATION: ER AGE: 34 SEX: M EXAM STATUS: REG ER ORD. PHYSICIAN: HOPE GRACIA DO REASON: abdominal pain for 2 weeks, H/O CROHN'S PROCEDURE: CT ABD PELV W/ IV CONTRST ONLY EXAM: Abdomen and pelvis CT with intravenous contrast. HISTORY: Pain. Inflammatory bowel disease. TECHNIQUE: Computed tomographic images of the abdomen and pelvis were obtained following the administration of intravenous contrast. Multiplanar reformatting was performed. *One or more of the following individualized dose reduction techniques were utilized for this examination: 1. Automated exposure control. 2. Adjustment of the mA and/or kV according to patient size. 3. Use of iterative reconstruction technique. COMPARISON: 01/07/2019. FINDINGS: Evaluation of the lower thorax demonstrates minimal atelectasis. There is no infiltrate or pleural effusion. No hepatic lesion is seen. The gallbladder is contracted due to the suspected postprandial status of patient. The pancreas, spleen, stomach, and adrenal glands are unremarkable. There is a 1.1 cm hypodense lesion within the lateral mid zone of the left kidney, the attenuation of which is greater than simple fluid. There is no hydronephrosis. The appendix is absent. There is circumferential wall thickening involving the colon from the distal transverse colon to the proximal sigmoid colon, consistent with acute colitis. There is associated mild pericolonic fatty stranding. There is also mild wall thickening involving the cecum which may be due to acute segmental colitis. There are few surrounding prominent pericecal lymph nodes. There is no bowel structure in. There is no free air. The bladder is unremarkable. The aorta is normal in caliber. There is no suspicious osseous lesion. There is grade 1 anterolisthesis with a right pars defect at L5-S1. IMPRESSION: 1. Acute colitis extending from the distal transverse colon to the proximal sigmoid colon. There may also be segmental colitis involving the cecum. This is likely due to reported known inflammatory bowel disease rather than infectious colitis. 2. Stable 1.1 cm hypodense lesion within the left kidney. This may be a slightly complicated cyst. Nonemergent renal survey can be performed to confirm benignity if there is clinical concern. 3. Note is made that punctate nontracking renal stones demonstrated on prior studies are likely obscured on the current exam due to the presence of contrast. There is no hydronephrosis. Electronically signed by: Elvira Dennis MD (08/12/2020 12:19 PM) [id number] DICTATED and SIGNED BY: ELVIRA DENNIS MD DATE: 08/12/20 [id number] Laboratory Tests Test 08/12/20 09:38 08/12/20 10:40 08/13/20 06:35 Urine Collection Type Void Urine Color Yellow Urine Clarity Clear Urine pH 8.0 (<5.0-8.0) Urine Specific Altha 1.020 (1.000-1.030) Urine Protein Negative mg/dL (NEG-TRACE) Urine Glucose (UA) Negative mg/dL (NEG) Urine Ketones (Stick) Negative mg/dL (NEG) Urine Blood Negative (NEG) Urine Nitrite Negative (NEG) Urine Bilirubin Negative (NEG) Urine Urobilinogen Dipstick 0.2 mg/dL (0.2 mg/dL) Urine Leukocyte Esterase Negative (NEG) Urine RBC 0 /HPF (0-2) Urine WBC 5-10 /HPF (0-4) Urine Bacteria Few /HPF (0-FEW) White Blood Count 16.6 x10^3/uL (4.0-11.0) 14.6 x10^3/uL (4.0-11.0) Red Blood Count 5.26 x10^6/uL (4.30-5.70) 5.02 x10^6/uL (4.30-5.70) Hemoglobin 14.5 g/dL (13.0-17.5) 13.6 g/dL (13.0-17.5) Hematocrit 43.8 % (39.0-53.0) 42.0 % (39.0-53.0) Mean Corpuscular Volume 83 fL (79-100) 84 fL (79-100) Mean Corpuscular Hemoglobin 28 pg (25-35) 27 pg (25-35) Mean Corpuscular Hemoglobin Concent 33 g/dL (31-37) 33 g/dL (31-37) Red Cell Distribution Width 15.4 % (11.5-14.5) 14.7 % (11.5-14.5) Platelet Count 406 x10^3/uL (140-400) 369 x10^3/uL (140-400) Neutrophils (%) (Auto) 89 % (31-73) Lymphocytes (%) (Auto) 7 % (24-48) Monocytes (%) (Auto) 3 % (0-9) Eosinophils (%) (Auto) 0 % (0-3) Basophils (%) (Auto) 0 % (0-3) Neutrophils # (Auto) 14.8 x10^3/uL (1.8-7.7) Lymphocytes # (Auto) 1.2 x10^3/uL (1.0-4.8) Monocytes # (Auto) 0.5 x10^3/uL (0.0-1.1) Eosinophils # (Auto) 0.0 x10^3/uL (0.0-0.7) Basophils # (Auto) 0.0 x10^3/uL (0.0-0.2) Segmented Neutrophils % 68 % (35-66) Band Neutrophils % 20 % (0-9) Lymphocytes % 9 % (24-48) Monocytes % 3 % (0-10) Toxic Granulation Present Dohle Bodies Present Platelet Estimate Increased (ADEQUATE) Anisocytosis Present Sodium Level 135 mmol/L (136-145) Potassium Level 4.2 mmol/L (3.5-5.1) Chloride Level 101 mmol/L (98-107) Carbon Dioxide Level 28 mmol/L (21-32) Anion Gap 6 (6-14) Blood Urea Nitrogen 18 mg/dL (8-26) Creatinine 1.4 mg/dL (0.7-1.3) Estimated GFR (Cockcroft-Gault) 57.3 BUN/Creatinine Ratio 13 (6-20) Glucose Level 97 mg/dL (70-99) Calcium Level 8.6 mg/dL (8.5-10.1) Magnesium Level 2.2 mg/dL (1.8-2.4) Total Bilirubin 0.4 mg/dL (0.2-1.0) Aspartate Amino Transf (AST/SGOT) 14 U/L (15-37) Alanine Aminotransferase (ALT/SGPT) 21 U/L (16-63) Alkaline Phosphatase 84 U/L (46-116) Total Protein 7.6 g/dL (6.4-8.2) Albumin 3.0 g/dL (3.4-5.0) Albumin/Globulin Ratio 0.7 (1.0-1.7) Lipase 72 U/L (73-393) Assessment and Plan Assessmemt and Plan Problems Medical Problems: (1) Abdominal pain Status: Acute (2) Exacerbation of Crohn's disease of large intestine Status: Acute Comment Review of Relevant I have reviewed the following items adis (where applicable) has been applied. Labs Laboratory Tests Test 08/12/20 09:38 08/12/20 10:40 08/13/20 06:35 Urine Collection Type Void Urine Color Yellow Urine Clarity Clear Urine pH 8.0 (<5.0-8.0) Urine Specific Altha 1.020 (1.000-1.030) Urine Protein Negative mg/dL (NEG-TRACE) Urine Glucose (UA) Negative mg/dL (NEG) Urine Ketones (Stick) Negative mg/dL (NEG) Urine Blood Negative (NEG) Urine Nitrite Negative (NEG) Urine Bilirubin Negative (NEG) Urine Urobilinogen Dipstick 0.2 mg/dL (0.2 mg/dL) Urine Leukocyte Esterase Negative (NEG) Urine RBC 0 /HPF (0-2) Urine WBC 5-10 /HPF (0-4) Urine Bacteria Few /HPF (0-FEW) White Blood Count 16.6 x10^3/uL (4.0-11.0) 14.6 x10^3/uL (4.0-11.0) Red Blood Count 5.26 x10^6/uL (4.30-5.70) 5.02 x10^6/uL (4.30-5.70) Hemoglobin 14.5 g/dL (13.0-17.5) 13.6 g/dL (13.0-17.5) Hematocrit 43.8 % (39.0-53.0) 42.0 % (39.0-53.0) Mean Corpuscular Volume 83 fL (79-100) 84 fL (79-100) Mean Corpuscular Hemoglobin 28 pg (25-35) 27 pg (25-35) Mean Corpuscular Hemoglobin Concent 33 g/dL (31-37) 33 g/dL (31-37) Red Cell Distribution Width 15.4 % (11.5-14.5) 14.7 % (11.5-14.5) Platelet Count 406 x10^3/uL (140-400) 369 x10^3/uL (140-400) Neutrophils (%) (Auto) 89 % (31-73) Lymphocytes (%) (Auto) 7 % (24-48) Monocytes (%) (Auto) 3 % (0-9) Eosinophils (%) (Auto) 0 % (0-3) Basophils (%) (Auto) 0 % (0-3) Neutrophils # (Auto) 14.8 x10^3/uL (1.8-7.7) Lymphocytes # (Auto) 1.2 x10^3/uL (1.0-4.8) Monocytes # (Auto) 0.5 x10^3/uL (0.0-1.1) Eosinophils # (Auto) 0.0 x10^3/uL (0.0-0.7) Basophils # (Auto) 0.0 x10^3/uL (0.0-0.2) Segmented Neutrophils % 68 % (35-66) Band Neutrophils % 20 % (0-9) Lymphocytes % 9 % (24-48) Monocytes % 3 % (0-10) Toxic Granulation Present Dohle Bodies Present Platelet Estimate Increased (ADEQUATE) Anisocytosis Present Sodium Level 135 mmol/L (136-145) Potassium Level 4.2 mmol/L (3.5-5.1) Chloride Level 101 mmol/L (98-107) Carbon Dioxide Level 28 mmol/L (21-32) Anion Gap 6 (6-14) Blood Urea Nitrogen 18 mg/dL (8-26) Creatinine 1.4 mg/dL (0.7-1.3) Estimated GFR (Cockcroft-Gault) 57.3 BUN/Creatinine Ratio 13 (6-20) Glucose Level 97 mg/dL (70-99) Calcium Level 8.6 mg/dL (8.5-10.1) Magnesium Level 2.2 mg/dL (1.8-2.4) Total Bilirubin 0.4 mg/dL (0.2-1.0) Aspartate Amino Transf (AST/SGOT) 14 U/L (15-37) Alanine Aminotransferase (ALT/SGPT) 21 U/L (16-63) Alkaline Phosphatase 84 U/L (46-116) Total Protein 7.6 g/dL (6.4-8.2) Albumin 3.0 g/dL (3.4-5.0) Albumin/Globulin Ratio 0.7 (1.0-1.7) Lipase 72 U/L (73-393) Laboratory Tests Test 08/12/20 09:38 08/12/20 10:40 08/13/20 06:35 Urine Collection Type Void Urine Color Yellow Urine Clarity Clear Urine pH 8.0 (<5.0-8.0) Urine Specific Altha 1.020 (1.000-1.030) Urine Protein Negative mg/dL (NEG-TRACE) Urine Glucose (UA) Negative mg/dL (NEG) Urine Ketones (Stick) Negative mg/dL (NEG) Urine Blood Negative (NEG) Urine Nitrite Negative (NEG) Urine Bilirubin Negative (NEG) Urine Urobilinogen Dipstick 0.2 mg/dL (0.2 mg/dL) Urine Leukocyte Esterase Negative (NEG) Urine RBC 0 /HPF (0-2) Urine WBC 5-10 /HPF (0-4) Urine Bacteria Few /HPF (0-FEW) White Blood Count 16.6 x10^3/uL (4.0-11.0) 14.6 x10^3/uL (4.0-11.0) Red Blood Count 5.26 x10^6/uL (4.30-5.70) 5.02 x10^6/uL (4.30-5.70) Hemoglobin 14.5 g/dL (13.0-17.5) 13.6 g/dL (13.0-17.5) Hematocrit 43.8 % (39.0-53.0) 42.0 % (39.0-53.0) Mean Corpuscular Volume 83 fL (79-100) 84 fL (79-100) Mean Corpuscular Hemoglobin 28 pg (25-35) 27 pg (25-35) Mean Corpuscular Hemoglobin Concent 33 g/dL (31-37) 33 g/dL (31-37) Red Cell Distribution Width 15.4 % (11.5-14.5) 14.7 % (11.5-14.5) Platelet Count 406 x10^3/uL (140-400) 369 x10^3/uL (140-400) Neutrophils (%) (Auto) 89 % (31-73) Lymphocytes (%) (Auto) 7 % (24-48) Monocytes (%) (Auto) 3 % (0-9) Eosinophils (%) (Auto) 0 % (0-3) Basophils (%) (Auto) 0 % (0-3) Neutrophils # (Auto) 14.8 x10^3/uL (1.8-7.7) Lymphocytes # (Auto) 1.2 x10^3/uL (1.0-4.8) Monocytes # (Auto) 0.5 x10^3/uL (0.0-1.1) Eosinophils # (Auto) 0.0 x10^3/uL (0.0-0.7) Basophils # (Auto) 0.0 x10^3/uL (0.0-0.2) Segmented Neutrophils % 68 % (35-66) Band Neutrophils % 20 % (0-9) Lymphocytes % 9 % (24-48) Monocytes % 3 % (0-10) Toxic Granulation Present Dohle Bodies Present Platelet Estimate Increased (ADEQUATE) Anisocytosis Present Sodium Level 135 mmol/L (136-145) Potassium Level 4.2 mmol/L (3.5-5.1) Chloride Level 101 mmol/L (98-107) Carbon Dioxide Level 28 mmol/L (21-32) Anion Gap 6 (6-14) Blood Urea Nitrogen 18 mg/dL (8-26) Creatinine 1.4 mg/dL (0.7-1.3) Estimated GFR (Cockcroft-Gault) 57.3 BUN/Creatinine Ratio 13 (6-20) Glucose Level 97 mg/dL (70-99) Calcium Level 8.6 mg/dL (8.5-10.1) Magnesium Level 2.2 mg/dL (1.8-2.4) Total Bilirubin 0.4 mg/dL (0.2-1.0) Aspartate Amino Transf (AST/SGOT) 14 U/L (15-37) Alanine Aminotransferase (ALT/SGPT) 21 U/L (16-63) Alkaline Phosphatase 84 U/L (46-116) Total Protein 7.6 g/dL (6.4-8.2) Albumin 3.0 g/dL (3.4-5.0) Albumin/Globulin Ratio 0.7 (1.0-1.7) Lipase 72 U/L (73-393) Microbiology 08/12/20 Urine Culture - Final, Complete Medications Current Medications Ondansetron HCl (Zofran) 4 mg 1X ONCE IVP Last administered on 08/12/20at 10:37; Start 08/12/20 at 10:30; Stop 08/12/20 at 10:31; Status DC Morphine Sulfate (Morphine Sulfate) 4 mg 1X ONCE IV Last administered on 08/12/20at 10:38; Start 08/12/20 at 10:30; Stop 08/12/20 at 10:31; Status DC Sodium Chloride 1,000 ml @ 1,000 mls/hr 1X ONCE IV Last administered on 08/12/20at 10:38; Start 08/12/20 at 10:30; Stop 08/12/20 at 11:29; Status DC Pharmacy Consult (C.diff Med Screen By Rx) 1 each PRN 1X PRN MC SEE COMMENTS; Start 08/12/20 at 10:30 Iohexol (Omnipaque 300 Mg/ml) 75 ml 1X ONCE IV Last administered on 08/12/20at 11:53; Start 08/12/20 at 12:00; Stop 08/12/20 at 12:01; Status DC Morphine Sulfate (Morphine Sulfate) 4 mg 1X ONCE IV Last administered on 08/12/20at 13:18; Start 08/12/20 at 13:15; Stop 08/12/20 at 13:16; Status DC Ondansetron HCl (Zofran) 4 mg PRN Q8HRS PRN IV NAUSEA/VOMITING Last administered on 08/12/20at 16:29; Start 08/12/20 at 13:15; Stop 08/12/20 at 21:52; Status DC Morphine Sulfate (Morphine Sulfate) 4 mg PRN Q2HR PRN IV PAIN Last administered on 08/13/20at 04:22; Start 08/12/20 at 13:15; Stop 08/13/20 at 13:14 Sodium Chloride 1,000 ml @ 100 mls/hr Q10H IV Last administered on 08/13/20at 02:35; Start 08/12/20 at 13:15; Stop 08/13/20 at 13:14 Pantoprazole Sodium (PROTONIX VIAL for IV PUSH) 40 mg DAILYAC IVP Last administered on 08/13/20at 06:55; Start 08/12/20 at 14:15 Methylprednisolone Sodium Succinate (SOLU-Medrol 40MG VIAL) 40 mg BID IV Last administered on 08/12/20at 21:39; Start 08/12/20 at 21:00 Atorvastatin Calcium (Lipitor) 20 mg QHS PO Last administered on 08/12/20at 21:39; Start 08/12/20 at 21:00 Lisinopril (Prinivil) 2.5 mg DAILY PO ; Start 08/13/20 at 09:00 Mesalamine (Delzicol) 800 mg TIDAC PO Last administered on 08/13/20at 06:56; Start 08/13/20 at 07:30; Stop 08/13/20 at 07:28; Status DC Metoprolol Succinate (Toprol Xl) 12.5 mg DAILY PO ; Start 08/13/20 at 09:00 Pantoprazole Sodium (Protonix) 40 mg BIDAC PO ; Start 08/13/20 at 07:30; Status UNV Tramadol HCl (Ultram) 50 mg PRN Q6HRS PRN PO PAIN; Start 08/12/20 at 19:45 Citalopram Hydrobromide (CeleXA) 20 mg QHS PO Last administered on 08/12/20at 21:39; Start 08/12/20 at 21:00 Ondansetron HCl (Zofran) 4 mg PRN Q6HRS PRN IVP NAUSEA/VOMITING 1ST CHOICE Last administered on 08/13/20at 04:44; Start 08/12/20 at 22:00 Active Scripts Active Lisinopril 5 Mg Tablet 2.5 Mg PO DAILY 90 Days Metoprolol Succinate ( Xl ) (Metoprolol Succinate) 25 Mg Tab.er.24h 12.5 Mg PO DAILY 90 Days Atorvastatin Calcium 20 Mg Tablet 20 Mg PO QHS 90 Days Prednisone 20 Mg Tablet 40 Mg PO DAILY 5 Days Pantoprazole Sodium (Pantoprazole Sodium) 40 Mg Tablet.dr 40 Mg PO BIDAC 30 Days Tramadol Hcl 50 Mg Tablet 50 Mg PO PRN Q6HRS PRN 6 Days Reported Colazal (Balsalazide Disodium) 750 Mg Capsule 750 Mg PO TID Dicyclomine Hcl 10 Mg Capsule 1 Cap PO TID Benadryl (Diphenhydramine Hcl) 25 Mg Capsule 1 Cap PO QHS 30 Days Zyrtec (Cetirizine Hcl) 10 Mg Tablet 10 Mg PO BID Escitalopram Oxalate 10 Mg Tablet 1 Tab PO HS Vitals/I & O Vital Sign - Last 24 Hours 08/12/20 08/12/20 08/12/20 08/12/20 09:45 10:00 10:29 10:38 Temp 97.8 97.8 Pulse 111 110 104 Resp 18 16 B/P (MAP) 160/96 (117) 147/91 (109) 146/85 (105) Pulse Ox 97 95 95 100 O2 Delivery Room Air Room Air Room Air Room Air 08/12/20 08/12/20 08/12/20 08/12/20 10:59 11:29 13:18 15:00 Pulse 90 88 Resp 18 B/P (MAP) 152/84 (106) 146/81 (102) Pulse Ox 95 95 95 O2 Delivery Room Air Room Air Room Air 08/12/20 08/12/20 08/12/20 08/12/20 15:53 16:28 17:23 19:00 Temp 97.9 98.3 97.9 98.3 Pulse 89 75 Resp 16 18 B/P (MAP) 137/79 (98) 129/77 (94) Pulse Ox 96 94 O2 Delivery Room Air Room Air Room Air Room Air 08/12/20 08/12/20 08/12/20 08/12/20 20:00 22:36 23:00 23:06 Temp 98.5 98.5 Pulse 80 Resp 18 18 20 B/P (MAP) 121/73 (89) Pulse Ox 94 92 92 O2 Delivery Room Air Room Air Room Air Room Air 08/13/20 08/13/20 08/13/20 08/13/20 03:00 04:22 04:52 07:00 Temp 98.4 97.5 98.4 97.5 Pulse 64 83 Resp 16 20 20 18 B/P (MAP) 120/68 (85) 126/81 (96) Pulse Ox 93 93 93 94 O2 Delivery Room Air Room Air Room Air Room Air Intake and Output 08/12/20 08/12/20 08/13/20 15:00 23:00 07:00 Intake Total 1000 ml Output Total 0 ml 700 ml Balance 0 ml 300 ml Justicifation of Admission Dx: Justifications for Admission: Justification of Admission Dx: Yes Comments: acute severe crohn's flare ERNESTO FLORES MD Aug 13, 2020 08:25
[2020-08-13] MEDS: METOPROLOL SUCC 24HR ER 25 MG TAB.ER.24H. PO SCH (08:27)
[2020-08-13] MEDS: LISINOPRIL 5 MG TABLET. PO SCH (08:27)
[2020-08-13] MEDS: methylPREDNISolone SOD SUCC PF 40 MG/ML VIAL. IV SCH ×2 (08:28→20:24)
--- NOTE | 2020-08-13 10:40 | NUR ---
SW following. Discussed with RN, pt from home, room air, clear liquid diet. GI following - steroids and bowel rest currently. RN advised no SW needs at this time. SW will continue to follow.
--- NOTE | 2020-08-13 10:53 | PDOC ---
Date of Service: DATE: 08/13/20 TIME: 10:49 Subjective: Subjective: Less diarrhea overall but has had five small bloody mucousy stools since 3:00 a.m. Bad gas cramps - better but still 6/10 pain. Would like to advance diet if possible. Wants to know if he should take balsalazide here. Objective: Vital Signs: Vital Signs Date Time Temp Pulse Resp B/P (MAP) Pulse Ox O2 Delivery O2 Flow Rate FiO2 08/13/20 10:13 Room Air 08/13/20 08:27 83 126/81 08/13/20 07:00 97.5 18 94 97.5 Labs: Laboratory Tests Test 08/13/20 06:35 White Blood Count 14.6 x10^3/uL Red Blood Count 5.02 x10^6/uL Hemoglobin 13.6 g/dL Hematocrit 42.0 % Mean Corpuscular Volume 84 fL Mean Corpuscular Hemoglobin 27 pg Mean Corpuscular Hemoglobin Concent 33 g/dL Red Cell Distribution Width 14.7 % Platelet Count 369 x10^3/uL Sodium Level 137 mmol/L Potassium Level 4.0 mmol/L Chloride Level 100 mmol/L Carbon Dioxide Level 28 mmol/L Anion Gap 9 Blood Urea Nitrogen 15 mg/dL Creatinine 1.0 mg/dL Estimated GFR (Cockcroft-Gault) 84.5 Glucose Level 112 mg/dL Calcium Level 8.3 mg/dL URINE CULTURE Final Final No Growth on 08/13/20 at 0732 PE: GEN: NAD LUNGS: CTAB HEART: RRR ABD: quiet BS x 4, soft, RLQ tenderness NEURO/PSYCH: A & O 3 A/P: IBD flare, tenesmus, hematochezia Leukocytosis on steroids H/o GERD and C Diff -- Describing tenesmus. Stool tests pending, continue IV steroids and PPI in some form. Justicifation of Admission Dx: Justifications for Admission: Justification of Admission Dx: Yes FER ROSENBERG Aug 13, 2020 10:53
[2020-08-13 11:00] VITALS: BP 124/72
[2020-08-13 15:00] VITALS: BP 132/68
[2020-08-13] MEDS: traMADol 50 MG TABLET PO PRN (18:26)
[2020-08-13 19:00] VITALS: BP 139/86
[2020-08-13] MEDS: HYDROcodone/APAP 5/325MG 1 TAB TABLET PO PRN (20:23)
[2020-08-13] MEDS: ATORVASTATIN CALCIUM 20 MG TABLET PO SCH (20:23)
[2020-08-13] MEDS: LACTOBACILLUS RHAMNOSUS GG 1 CAPSULE. PO SCH (20:23)
[2020-08-13] MEDS: CITALOPRAM 20 MG TABLET. PO SCH (20:24)
[2020-08-13 23:00] VITALS: BP 113/72
[2020-08-14 03:00] VITALS: BP 118/76
[2020-08-14] MEDS: PANTOPRAZOLE IV PUSH 40 MG VIAL. IVP SCH (07:21)
[2020-08-14] MEDS: traMADol 50 MG TABLET PO PRN (07:27)
[2020-08-14] MEDS: HYDROcodone/APAP 5/325MG 1 TAB TABLET PO PRN ×2 (07:27→14:18)
[2020-08-14 07:33] VITALS: BP 132/84
[2020-08-14] MEDS: LACTOBACILLUS RHAMNOSUS GG 1 CAPSULE. PO SCH ×2 (08:46→21:00)
[2020-08-14] MEDS: LISINOPRIL 5 MG TABLET. PO SCH (08:47)
[2020-08-14] MEDS: methylPREDNISolone SOD SUCC PF 40 MG/ML VIAL. IV SCH ×2 (08:48→21:00)
[2020-08-14] MEDS: METOPROLOL SUCC 24HR ER 25 MG TAB.ER.24H. PO SCH (08:48)
[2020-08-14] MEDS: ONDANSETRON PF 4 MG/2 ML VIAL. IVP PRN (09:01)
[2020-08-14 10:34] VITALS: BP 122/72
--- NOTE | 2020-08-14 10:37 | PDOC ---
PROGRESS NOTES Date of Service: DATE: 08/14/20 TIME: 10:36 Chief Complaint Chief Complaint ASSESSMENT AND PLAN: acute Crohn's flare. extending from the distal transverse colon to the proximal sigmoid colon. also segmental colitis involving the cecum morbid obesity plan admitted. consult GI. IV steroids, home medications, DVT prophylaxis. Full code. 08-13 five small bloody mucous stools since 3:00 a.m. History of Present Illness History of Present Illness CHIEF COMPLAINT: Abdominal pain. HISTORY OF PRESENT ILLNESS: The patient is a pleasant 34-year-old male who has got chronic Crohn's. He has been diagnosed about 18 months ago. He states recently they have been treating him with Entyvio, steroids and some other medicine that "starts with a B." He is still having symptoms. Symptoms are rated at 9/10. He has associated nausea. It has been occurring off and on for months, described as very irritating, worse with food, better with no food. I discussed the case with the ER physician. We are going to admit the patient, start him on some IV steroids and consult GI. PAST MEDICAL HISTORY: Inflammatory bowel disease with Crohn's, hypertension, coronary artery disease, myocardial infarction, depression, headaches, low testosterone, C. diff, GERD, COVID-19 in June of this year, vasectomy, left knee surgery, appendectomy, benign jaw tumor, LASIK surgery. ALLERGIES: TYLENOL AND OXYCODONE. FAMILY HISTORY: Diabetes. 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 MEDICATIONS: Reviewed, please refer to the MRAD. REVIEW OF SYSTEMS: GENERAL: No history of weight change, weakness or fevers. SKIN: No bruising, hair changes or rashes. EYES: No blurred, double or loss of vision. NOSE AND THROAT: No history of nosebleeds, hoarseness or sore throat. HEART: No history of palpitations, chest pain or shortness of breath on exertion. LUNGS: Denies cough, hemoptysis, wheezing or shortness of breath. GASTROINTESTINAL: He complains of abdominal pain, nausea, vomiting. GENITOURINARY: No history of frequency, urgency, hesitancy or nocturia. NEUROLOGIC: Denies history of numbness, tingling, tremor or weakness. PSYCHIATRIC: No history of panic, anxiety or depression. ENDOCRINE: No history of heat or cold intolerance, polyuria or polydipsia. EXTREMITIES: Denies muscle weakness, joint pain, pain on walking or stiffness. Flare symptoms (diarrhea, abd pain - currently diffuse cramping, but most often RLQ) since 05/2020. Vitals Vitals Vital Signs Date Time Temp Pulse Resp B/P (MAP) Pulse Ox O2 Delivery O2 Flow Rate FiO2 08/14/20 10:34 97.7 67 18 122/72 (89) 95 Room Air 97.7 Physical Exam Physical Exam PHYSICAL EXAMINATION: VITALS: Within normal limits and are stable. GENERAL: No apparent distress. Alert and oriented. HEENT: Normal cephalic atraumatic, external auditory canals are patent. EYES: Extraocular muscles are intact, pupils are equally round and reactive to light and accommodation. MUSCULOSKELETAL: Well developed, well nourished, good range of motion. ENDOCRINE: No thyromegaly was palpated. LYMPHATICS: No cervical chain or axillary nodes were noted. HEMATOPOIETIC: No bruising. NECK: Supple, no JVD, no thyromegaly was noted. LUNGS: Clear to auscultation in all lung franco without rhonchi or wheezing. HEART: RRR, S1, S2 present. Peripheral pulses intact, no obvious murmurs were noted. ABDOMEN: Soft, nontender. Positive bowel sounds no organomegaly, normal bowel sounds. EXTREMITIES: Without any cyanosis, clubbing, or edema. Pedal pulses intact, Homans sign is negative. NEUROLOGIC: Normal speech, normal tone. A & O x 3, moves all extremities, no obvious focal deficits. PSYCHIATRIC: Normal affect, normal mood. Stable. SKIN: No ulcerations or rashes, good skin turgor, no jaundice. VASCULAR: Good capillary refill, neurovascular bundle appears to be intact. General: Alert, Oriented X3, Cooperative, No acute distress Heart: Regular rate Lungs: Clear Abdomen: Normal bowel sounds, Soft Extremities: No clubbing, No cyanosis, No edema Skin: No significant lesion Assessment and Plan Assessmemt and Plan Problems Medical Problems: (1) Abdominal pain Status: Acute (2) Exacerbation of Crohn's disease of large intestine Status: Acute Comment Review of Relevant I have reviewed the following items adis (where applicable) has been applied. Labs Laboratory Tests Test 08/12/20 10:40 08/13/20 03:00 08/13/20 06:35 White Blood Count 16.6 x10^3/uL (4.0-11.0) 14.6 x10^3/uL (4.0-11.0) Red Blood Count 5.26 x10^6/uL (4.30-5.70) 5.02 x10^6/uL (4.30-5.70) Hemoglobin 14.5 g/dL (13.0-17.5) 13.6 g/dL (13.0-17.5) Hematocrit 43.8 % (39.0-53.0) 42.0 % (39.0-53.0) Mean Corpuscular Volume 83 fL (79-100) 84 fL (79-100) Mean Corpuscular Hemoglobin 28 pg (25-35) 27 pg (25-35) Mean Corpuscular Hemoglobin Concent 33 g/dL (31-37) 33 g/dL (31-37) Red Cell Distribution Width 15.4 % (11.5-14.5) 14.7 % (11.5-14.5) Platelet Count 406 x10^3/uL (140-400) 369 x10^3/uL (140-400) Neutrophils (%) (Auto) 89 % (31-73) Lymphocytes (%) (Auto) 7 % (24-48) Monocytes (%) (Auto) 3 % (0-9) Eosinophils (%) (Auto) 0 % (0-3) Basophils (%) (Auto) 0 % (0-3) Neutrophils # (Auto) 14.8 x10^3/uL (1.8-7.7) Lymphocytes # (Auto) 1.2 x10^3/uL (1.0-4.8) Monocytes # (Auto) 0.5 x10^3/uL (0.0-1.1) Eosinophils # (Auto) 0.0 x10^3/uL (0.0-0.7) Basophils # (Auto) 0.0 x10^3/uL (0.0-0.2) Segmented Neutrophils % 68 % (35-66) Band Neutrophils % 20 % (0-9) Lymphocytes % 9 % (24-48) Monocytes % 3 % (0-10) Toxic Granulation Present Dohle Bodies Present Platelet Estimate Increased (ADEQUATE) Anisocytosis Present Sodium Level 135 mmol/L (136-145) 137 mmol/L (136-145) Potassium Level 4.2 mmol/L (3.5-5.1) 4.0 mmol/L (3.5-5.1) Chloride Level 101 mmol/L (98-107) 100 mmol/L (98-107) Carbon Dioxide Level 28 mmol/L (21-32) 28 mmol/L (21-32) Anion Gap 6 (6-14) 9 (6-14) Blood Urea Nitrogen 18 mg/dL (8-26) 15 mg/dL (8-26) Creatinine 1.4 mg/dL (0.7-1.3) 1.0 mg/dL (0.7-1.3) Estimated GFR (Cockcroft-Gault) 57.3 84.5 BUN/Creatinine Ratio 13 (6-20) Glucose Level 97 mg/dL (70-99) 112 mg/dL (70-99) Calcium Level 8.6 mg/dL (8.5-10.1) 8.3 mg/dL (8.5-10.1) Magnesium Level 2.2 mg/dL (1.8-2.4) Total Bilirubin 0.4 mg/dL (0.2-1.0) Aspartate Amino Transf (AST/SGOT) 14 U/L (15-37) Alanine Aminotransferase (ALT/SGPT) 21 U/L (16-63) Alkaline Phosphatase 84 U/L (46-116) Total Protein 7.6 g/dL (6.4-8.2) Albumin 3.0 g/dL (3.4-5.0) Albumin/Globulin Ratio 0.7 (1.0-1.7) Lipase 72 U/L (73-393) Stool Campylobacter PCR Negative (NEGATIVE) Stool E. coli Shiga Toxins (PCR) Negative (NEGATIVE) Stool Salmonella PCR Negative (NEGATIVE) Stool Shigella PCR Negative (NEGATIVE) Clostridium difficile Toxin (PCR) Negative (NEGATIVE) Microbiology 08/12/20 Urine Culture - Final, Complete Medications Current Medications Ondansetron HCl (Zofran) 4 mg 1X ONCE IVP Last administered on 08/12/20at 10:37; Start 08/12/20 at 10:30; Stop 08/12/20 at 10:31; Status DC Morphine Sulfate (Morphine Sulfate) 4 mg 1X ONCE IV Last administered on 08/12/20at 10:38; Start 08/12/20 at 10:30; Stop 08/12/20 at 10:31; Status DC Sodium Chloride 1,000 ml @ 1,000 mls/hr 1X ONCE IV Last administered on 08/12/20at 10:38; Start 08/12/20 at 10:30; Stop 08/12/20 at 11:29; Status DC Pharmacy Consult ([facility] Screen By Rx) 1 each PRN 1X PRN [facility] SEE COMMENTS; Start 08/12/20 at 10:30 Iohexol (Omnipaque 300 Mg/ml) 75 ml 1X ONCE IV Last administered on 08/12/20at 11:53; Start 08/12/20 at 12:00; Stop 08/12/20 at 12:01; Status DC Morphine Sulfate (Morphine Sulfate) 4 mg 1X ONCE IV Last administered on 08/12/20at 13:18; Start 08/12/20 at 13:15; Stop 08/12/20 at 13:16; Status DC Ondansetron HCl (Zofran) 4 mg PRN Q8HRS PRN IV NAUSEA/VOMITING Last administered on 08/12/20at 16:29; Start 08/12/20 at 13:15; Stop 08/12/20 at 21:52; Status DC Morphine Sulfate (Morphine Sulfate) 4 mg PRN Q2HR PRN IV PAIN Last administered on 08/13/20at 08:28; Start 08/12/20 at 13:15; Stop 08/13/20 at 13:14; Status DC Sodium Chloride 1,000 ml @ 100 mls/hr Q10H IV Last administered on 08/13/20at 10:46; Start 08/12/20 at 13:15; Stop 08/13/20 at 13:14; Status DC Pantoprazole Sodium (PROTONIX VIAL for IV PUSH) 40 mg DAILYAC IVP Last administered on 08/14/20at 07:21; Start 08/12/20 at 14:15 Methylprednisolone Sodium Succinate (SOLU-Medrol 40MG VIAL) 40 mg BID IV Last administered on 08/14/20at 08:48; Start 08/12/20 at 21:00 Atorvastatin Calcium (Lipitor) 20 mg QHS PO Last administered on 08/13/20at 20:23; Start 08/12/20 at 21:00 Lisinopril (Prinivil) 2.5 mg DAILY PO Last administered on 08/14/20 08:47; Start 08/13/20 at 09:00 Mesalamine (Delzicol) 800 mg TIDAC PO Last administered on 08/13/20 06:56; Start 08/13/20 at 07:30; Stop 08/13/20 at 07:28; Status DC Metoprolol Succinate (Toprol Xl) 12.5 mg DAILY PO Last administered on 08:48; Start 08/13/20 at 09:00 Pantoprazole Sodium (Protonix) 40 mg BIDAC PO ; Start 08/13/20 at 07:30; Status UNV Tramadol HCl (Ultram) 50 mg PRN Q6HRS PRN PO PAIN Last administered on 08/14/20 07:27; Start 08/12/20 at 19:45 Citalopram Hydrobromide (CeleXA) 20 mg QHS PO Last administered on 08/13/20at 20:24; Start 08/12/20 at 21:00 Ondansetron HCl (Zofran) 4 mg PRN Q6HRS PRN IVP NAUSEA/VOMITING 1ST CHOICE Last administered on 08/14/20 09:01; Start 08/12/20 at 22:00 Lactobacillus Rhamnosus (Culturelle) 1 cap BID PO Last administered on 08/14/20at 08:46; Start 08/13/20 at 21:00 Acetaminophen/ Hydrocodone Bitart (Lortab 5/325) 1 tab PRN Q6HRS PRN PO BREAKTHROUGH PAIN Last administered on 08/14/20 07:27; Start 08/13/20 at 19:30 Active Scripts Active Lisinopril 5 Mg Tablet 2.5 Mg PO DAILY 90 Days Metoprolol Succinate ( Xl ) (Metoprolol Succinate) 25 Mg Tab.er.24h 12.5 Mg PO DAILY 90 Days Atorvastatin Calcium 20 Mg Tablet 20 Mg PO QHS 90 Days Prednisone 20 Mg Tablet 40 Mg PO DAILY 5 Days Pantoprazole Sodium (Pantoprazole Sodium) 40 Mg Tablet.dr 40 Mg PO BIDAC 30 Days Tramadol Hcl 50 Mg Tablet 50 Mg PO PRN Q6HRS PRN 6 Days Reported Colazal (Balsalazide Disodium) 750 Mg Capsule 750 Mg PO TID Dicyclomine Hcl 10 Mg Capsule 1 Cap PO PRN QID PRN Benadryl (Diphenhydramine Hcl) 25 Mg Capsule 1 Cap PO QHS 30 Days Zyrtec (Cetirizine Hcl) 10 Mg Tablet 10 Mg PO BID Escitalopram Oxalate 10 Mg Tablet 1 Tab PO HS Vitals/I & O Vital Sign - Last 24 Hours 08/13/20 08/13/20 08/13/20 08/13/20 11:00 15:00 18:26 19:00 Temp 97.9 97.7 98.7 97.9 97.7 98.7 Pulse 77 80 75 Resp 16 16 20 B/P (MAP) 124/72 (89) 132/68 (89) 139/86 (103) Pulse Ox 92 93 97 O2 Delivery Room Air Room Air Room Air 08/13/20 08/13/20 08/13/20 08/13/20 19:26 20:00 20:23 21:23 Resp 18 20 20 Pulse Ox 93 93 93 O2 Delivery Room Air Room Air Room Air Room Air 08/13/20 08/14/20 08/14/20 08/14/20 23:00 03:00 07:27 07:27 Temp 98.5 98.1 98.5 98.1 Pulse 74 68 Resp 16 16 20 20 B/P (MAP) 113/72 (86) 118/76 (90) Pulse Ox 95 95 95 95 O2 Delivery Room Air Room Air 08/14/20 08/14/20 08/14/20 08/14/20 07:33 08:00 08:42 08:42 Temp 97.6 97.6 Pulse 61 Resp 18 B/P (MAP) 132/84 (100) Pulse Ox 97 O2 Delivery Room Air Room Air Room Air Room Air 08/14/20 08/14/20 08/14/20 08:47 08:48 10:34 Temp 97.7 97.7 Pulse 61 61 67 Resp 18 B/P (MAP) 132/84 132/84 122/72 (89) Pulse Ox 95 O2 Delivery Room Air Intake and Output 08/13/20 08/13/20 08/14/20 15:00 23:00 07:00 Intake Total 240 ml Balance 240 ml Justicifation of Admission Dx: Justifications for Admission: Justification of Admission Dx: Yes ERNESTO FLORES MD Aug 14, 2020 10:37
[2020-08-14] MEDS: DICYCLOMINE HCL 10 MG CAPSULE PO PRN (11:04)
--- NOTE | 2020-08-14 11:54 | PDOC ---
G I PROGRESS NOTE Subjective Says fewer stools. Would like to advance diet. Physical Exam Lungs clear. RRR Abdomen soft, mildly tender diffusely. Review of Relevant I have reviewed the following items adis (where applicable) has been applied. Labs Laboratory Tests Test 08/13/20 03:00 08/13/20 06:35 Stool Campylobacter PCR Negative (NEGATIVE) Stool E. coli Shiga Toxins (PCR) Negative (NEGATIVE) Stool Salmonella PCR Negative (NEGATIVE) Stool Shigella PCR Negative (NEGATIVE) Clostridium difficile Toxin (PCR) Negative (NEGATIVE) White Blood Count 14.6 x10^3/uL (4.0-11.0) Red Blood Count 5.02 x10^6/uL (4.30-5.70) Hemoglobin 13.6 g/dL (13.0-17.5) Hematocrit 42.0 % (39.0-53.0) Mean Corpuscular Volume 84 fL (79-100) Mean Corpuscular Hemoglobin 27 pg (25-35) Mean Corpuscular Hemoglobin Concent 33 g/dL (31-37) Red Cell Distribution Width 14.7 % (11.5-14.5) Platelet Count 369 x10^3/uL (140-400) Sodium Level 137 mmol/L (136-145) Potassium Level 4.0 mmol/L (3.5-5.1) Chloride Level 100 mmol/L (98-107) Carbon Dioxide Level 28 mmol/L (21-32) Anion Gap 9 (6-14) Blood Urea Nitrogen 15 mg/dL (8-26) Creatinine 1.0 mg/dL (0.7-1.3) Estimated GFR (Cockcroft-Gault) 84.5 Glucose Level 112 mg/dL (70-99) Calcium Level 8.3 mg/dL (8.5-10.1) Microbiology 08/12/20 Urine Culture - Final, Complete Vitals/I & O Vital Sign - Last 24 Hours 08/13/20 08/13/20 08/13/20 08/13/20 15:00 18:26 19:00 19:26 Temp 97.7 98.7 97.7 98.7 Pulse 80 75 Resp 16 20 18 B/P (MAP) 132/68 (89) 139/86 (103) Pulse Ox 93 97 93 O2 Delivery Room Air Room Air Room Air 3/05/2408/13/20 08/13/20 08/13/20 20:00 20:23 21:23 23:00 Temp 98.5 98.5 Pulse 74 Resp 20 20 16 B/P (MAP) 113/72 (86) Pulse Ox 93 93 95 O2 Delivery Room Air Room Air Room Air 08/14/20 08/14/20 08/14/20 08/14/20 03:00 07:27 07:27 07:33 Temp 98.1 97.6 98.1 97.6 Pulse 68 61 Resp 16 20 20 18 B/P (MAP) 118/76 (90) 132/84 (100) Pulse Ox 95 95 95 97 O2 Delivery Room Air Room Air Room Air 08/14/20 08/14/20 08/14/20 08/14/20 08:00 08:42 08:42 08:47 Pulse 61 B/P (MAP) 132/84 O2 Delivery Room Air Room Air Room Air 08/14/20 08/14/20 08:48 10:34 Temp 97.7 97.7 Pulse 61 67 Resp 18 B/P (MAP) 132/84 122/72 (89) Pulse Ox 95 O2 Delivery Room Air Intake and Output 08/13/20 08/13/20 08/14/20 15:00 23:00 07:00 Intake Total 240 ml Balance 240 ml Problem List Problems Medical Problems: (1) Abdominal pain Status: Acute (2) Exacerbation of Crohn's disease of large intestine Status: Acute Assessment Probably UC with flare, better some. Plan of Care Note Continue IV steroids. Stay at [facility] for now; has been battling this for 2 months and gut needs a break. As improves, po steroids. Continue 5-ASA po. Justicifation of Admission Dx: Justifications for Admission: Justification of Admission Dx: Yes FABIO ONEILL MD Aug 14, 2020 11:54
[2020-08-14 14:50] VITALS: BP 140/74
[2020-08-14] MEDS: HYDROcodone/APAP 7.5/325MG 1 TAB TABLET PO PRN ×2 (18:20→22:03)
[2020-08-14 19:40] VITALS: BP 118/66
[2020-08-14] MEDS: ATORVASTATIN CALCIUM 20 MG TABLET PO SCH (21:00)
[2020-08-14] MEDS: CITALOPRAM 20 MG TABLET. PO SCH (21:00)
[2020-08-14 23:45] VITALS: BP 118/71
[2020-08-15 03:15] VITALS: BP 151/86
[2020-08-15] MEDS: HYDROcodone/APAP 7.5/325MG 1 TAB TABLET PO PRN ×4 (03:55→20:24)
[2020-08-15] MEDS: DICYCLOMINE HCL 10 MG CAPSULE PO PRN ×2 (03:56→20:23)
[2020-08-15] MEDS: PANTOPRAZOLE IV PUSH 40 MG VIAL. IVP SCH ×2 (06:09→08:42)
[2020-08-15 07:32] VITALS: BP 103/61
[2020-08-15 08:20] LABS: BASO % 0 % (0-3); EOS % 0 % (0-3); HEMATOCRIT 42.3 % (39.0-53.0); LYMPH # 0.8 x10^3/uL (1.0-4.8); LYMPH % 6 % (24-48); MEAN CORPUSCULAR HEMOGLOBIN 28 pg (25-35); MEAN CORPUSCULAR HGB CONC 33 g/dL (31-37); MEAN CORPUSCULAR VOLUME 84 fL (79-100); MONO # 0.6 x10^3/uL (0.0-1.1); MONO % 5 % (0-9); NEUT # 11.5 x10^3/uL (1.8-7.7); NEUT % 89 % (31-73); PLATELET COUNT 397 x10^3/uL (140-400); RED BLOOD COUNT 5.03 x10^6/uL (4.30-5.70); RED CELL DISTRIBUTION WIDTH 15.1 % (11.5-14.5); WHITE BLOOD COUNT 12.8 x10^3/uL (4.0-11.0)
[2020-08-15] MEDS: METOPROLOL SUCC 24HR ER 25 MG TAB.ER.24H. PO SCH (08:40)
[2020-08-15] MEDS: LISINOPRIL 5 MG TABLET. PO SCH (08:41)
[2020-08-15] MEDS: methylPREDNISolone SOD SUCC PF 40 MG/ML VIAL. IV SCH ×2 (08:42→20:24)
[2020-08-15 08:43] LABS: ALBUMIN 2.7 g/dL (3.4-5.0); ALBUMIN/GLOBULIN RATIO 0.6 (1.0-1.7); CALCIUM 8.5 mg/dL (8.5-10.1); GFR 84.5; POTASSIUM 3.9 mmol/L (3.5-5.1); TOTAL BILIRUBIN 0.5 mg/dL (0.2-1.0); TOTAL PROTEIN 7.1 g/dL (6.4-8.2)
[2020-08-15] MEDS: LACTOBACILLUS RHAMNOSUS GG 1 CAPSULE. PO SCH ×2 (08:48→20:23)
[2020-08-15 10:50] VITALS: BP 147/86
--- NOTE | 2020-08-15 11:16 | PDOC ---
PROGRESS NOTES Date of Service: DATE: 08/15/20 TIME: 11:16 Chief Complaint Chief Complaint ASSESSMENT AND PLAN: acute Crohn's flare. extending from the distal transverse colon to the proximal sigmoid colon. also segmental colitis involving the cecum morbid obesity plan admitted. consult GI. IV steroids, home medications, DVT prophylaxis. Full code. 08-13 five small bloody mucous stools since 3:00 a.m. 08-14 pos flatus some blood per rectum 08-15 May need to consider different biologic po steroids soon less pain, visiting with in room D/W RN History of Present Illness History of Present Illness CHIEF COMPLAINT: Abdominal pain. HISTORY OF PRESENT ILLNESS: The patient is a pleasant 34-year-old male who has got chronic Crohn's. He has been diagnosed about 18 months ago. He states recently they have been treating him with Entyvio, steroids and some other medicine that "starts with a B." He is still having symptoms. Symptoms are rated at 9/10. He has associated nausea. It has been occurring off and on for months, described as very irritating, worse with food, better with no food. I discussed the case with the ER physician. We are going to admit the patient, start him on some IV steroids and consult GI. PAST MEDICAL HISTORY: Inflammatory bowel disease with Crohn's, hypertension, coronary artery disease, myocardial infarction, depression, headaches, low testosterone, C. diff, GERD, COVID-19 in June of this year, vasectomy, left knee surgery, appendectomy, benign jaw tumor, LASIK surgery. ALLERGIES: TYLENOL AND OXYCODONE. FAMILY HISTORY: Diabetes. 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 MEDICATIONS: Reviewed, please refer to the MRAD. REVIEW OF SYSTEMS: GENERAL: No history of weight change, weakness or fevers. SKIN: No bruising, hair changes or rashes. EYES: No blurred, double or loss of vision. NOSE AND THROAT: No history of nosebleeds, hoarseness or sore throat. HEART: No history of palpitations, chest pain or shortness of breath on exertion. LUNGS: Denies cough, hemoptysis, wheezing or shortness of breath. GASTROINTESTINAL: He complains of abdominal pain, nausea, vomiting. GENITOURINARY: No history of frequency, urgency, hesitancy or nocturia. NEUROLOGIC: Denies history of numbness, tingling, tremor or weakness. PSYCHIATRIC: No history of panic, anxiety or depression. ENDOCRINE: No history of heat or cold intolerance, polyuria or polydipsia. EXTREMITIES: Denies muscle weakness, joint pain, pain on walking or stiffness. Flare symptoms (diarrhea, abd pain - currently diffuse cramping, but most often RLQ) since 05/2020. Vitals Vitals Vital Signs Date Time Temp Pulse Resp B/P (MAP) Pulse Ox O2 Delivery O2 Flow Rate FiO2 08/15/20 10:50 97.8 72 18 147/86 (106) 94 Room Air 97.8 Physical Exam Physical Exam PHYSICAL EXAMINATION: VITALS: Within normal limits and are stable. GENERAL: No apparent distress. Alert and oriented. HEENT: Normal cephalic atraumatic, external auditory canals are patent. EYES: Extraocular muscles are intact, pupils are equally round and reactive to light and accommodation. MUSCULOSKELETAL: Well developed, well nourished, good range of motion. ENDOCRINE: No thyromegaly was palpated. LYMPHATICS: No cervical chain or axillary nodes were noted. HEMATOPOIETIC: No bruising. NECK: Supple, no JVD, no thyromegaly was noted. LUNGS: Clear to auscultation in all lung franco without rhonchi or wheezing. HEART: RRR, S1, S2 present. Peripheral pulses intact, no obvious murmurs were noted. ABDOMEN: Soft, nontender. Positive bowel sounds no organomegaly, normal bowel sounds. EXTREMITIES: Without any cyanosis, clubbing, or edema. Pedal pulses intact, Homans sign is negative. NEUROLOGIC: Normal speech, normal tone. A & O x 3, moves all extremities, no obvious focal deficits. PSYCHIATRIC: Normal affect, normal mood. Stable. SKIN: No ulcerations or rashes, good skin turgor, no jaundice. VASCULAR: Good capillary refill, neurovascular bundle appears to be intact. General: Alert, Oriented X3, Cooperative, No acute distress Heart: Regular rate Lungs: Clear Abdomen: Normal bowel sounds, Soft Extremities: No clubbing, No cyanosis, No edema Skin: No significant lesion Labs LABS EXAM: Abdomen and pelvis CT with intravenous contrast. HISTORY: Pain. Inflammatory bowel disease. TECHNIQUE: Computed tomographic images of the abdomen and pelvis were obtained following the administration of intravenous contrast. Multiplanar reformatting was performed. *One or more of the following individualized dose reduction techniques were utilized for this examination: 1. Automated exposure control. 2. Adjustment of the mA and/or kV according to patient size. 3. Use of iterative reconstruction technique. COMPARISON: 01/07/2019. FINDINGS: Evaluation of the lower thorax demonstrates minimal atelectasis. There is no infiltrate or pleural effusion. No hepatic lesion is seen. The gallbladder is contracted due to the suspected postprandial status of patient. The pancreas, spleen, stomach, and adrenal glands are unremarkable. There is a 1.1 cm hypodense lesion within the lateral mid zone of the left kidney, the attenuation of which is greater than simple fluid. There is no hydronephrosis. The appendix is absent. There is circumferential wall thickening involving the colon from the distal transverse colon to the proximal sigmoid colon, consistent with acute colitis. There is associated mild pericolonic fatty stranding. There is also mild wall thickening involving the cecum which may be due to acute segmental colitis. There are few surrounding prominent pericecal lymph nodes. There is no bowel structure in. There is no free air. The bladder is unremarkable. The aorta is normal in caliber. There is no suspicious osseous lesion. There is grade 1 anterolisthesis with a right pars defect at L5-S1. IMPRESSION: 1. Acute colitis extending from the distal transverse colon to the proximal sigmoid colon. There may also be segmental colitis involving the cecum. This is likely due to reported known inflammatory bowel disease rather than infectious colitis. 2. Stable 1.1 cm hypodense lesion within the left kidney. This may be a slightly complicated cyst. Nonemergent renal survey can be performed to confirm benignity if there is clinical concern. 3. Note is made that punctate nontracking renal stones demonstrated on prior studies are likely obscured on the current exam due to the presence of contrast. There is no hydronephrosis. Electronically signed by: Elvira Manley MD (08/12/2020 12:19 PM) [id number] DICTATED and SIGNED BY: ELVIRA MANLEY MD DATE: 08/12/20 [id number] Laboratory Tests Test 08/15/20 06:25 White Blood Count 12.8 x10^3/uL (4.0-11.0) Red Blood Count 5.03 x10^6/uL (4.30-5.70) Hemoglobin 14.0 g/dL (13.0-17.5) Hematocrit 42.3 % (39.0-53.0) Mean Corpuscular Volume 84 fL (79-100) Mean Corpuscular Hemoglobin 28 pg (25-35) Mean Corpuscular Hemoglobin Concent 33 g/dL (31-37) Red Cell Distribution Width 15.1 % (11.5-14.5) Platelet Count 397 x10^3/uL (140-400) Neutrophils (%) (Auto) 89 % (31-73) Lymphocytes (%) (Auto) 6 % (24-48) Monocytes (%) (Auto) 5 % (0-9) Eosinophils (%) (Auto) 0 % (0-3) Basophils (%) (Auto) 0 % (0-3) Neutrophils # (Auto) 11.5 x10^3/uL (1.8-7.7) Lymphocytes # (Auto) 0.8 x10^3/uL (1.0-4.8) Monocytes # (Auto) 0.6 x10^3/uL (0.0-1.1) Eosinophils # (Auto) 0.0 x10^3/uL (0.0-0.7) Basophils # (Auto) 0.0 x10^3/uL (0.0-0.2) Sodium Level 136 mmol/L (136-145) Potassium Level 3.9 mmol/L (3.5-5.1) Chloride Level 99 mmol/L (98-107) Carbon Dioxide Level 29 mmol/L (21-32) Anion Gap 8 (6-14) Blood Urea Nitrogen 14 mg/dL (8-26) Creatinine 1.0 mg/dL (0.7-1.3) Estimated GFR (Cockcroft-Gault) 84.5 BUN/Creatinine Ratio 14 (6-20) Glucose Level 108 mg/dL (70-99) Calcium Level 8.5 mg/dL (8.5-10.1) Total Bilirubin 0.5 mg/dL (0.2-1.0) Aspartate Amino Transf (AST/SGOT) 8 U/L (15-37) Alanine Aminotransferase (ALT/SGPT) 16 U/L (16-63) Alkaline Phosphatase 81 U/L (46-116) Total Protein 7.1 g/dL (6.4-8.2) Albumin 2.7 g/dL (3.4-5.0) Albumin/Globulin Ratio 0.6 (1.0-1.7) Assessment and Plan Assessmemt and Plan Problems Medical Problems: (1) Abdominal pain Status: Acute (2) Exacerbation of Crohn's disease of large intestine Status: Acute Comment Review of Relevant I have reviewed the following items adis (where applicable) has been applied. Labs Laboratory Tests Test 08/15/20 06:25 White Blood Count 12.8 x10^3/uL (4.0-11.0) Red Blood Count 5.03 x10^6/uL (4.30-5.70) Hemoglobin 14.0 g/dL (13.0-17.5) Hematocrit 42.3 % (39.0-53.0) Mean Corpuscular Volume 84 fL (79-100) Mean Corpuscular Hemoglobin 28 pg (25-35) Mean Corpuscular Hemoglobin Concent 33 g/dL (31-37) Red Cell Distribution Width 15.1 % (11.5-14.5) Platelet Count 397 x10^3/uL (140-400) Neutrophils (%) (Auto) 89 % (31-73) Lymphocytes (%) (Auto) 6 % (24-48) Monocytes (%) (Auto) 5 % (0-9) Eosinophils (%) (Auto) 0 % (0-3) Basophils (%) (Auto) 0 % (0-3) Neutrophils # (Auto) 11.5 x10^3/uL (1.8-7.7) Lymphocytes # (Auto) 0.8 x10^3/uL (1.0-4.8) Monocytes # (Auto) 0.6 x10^3/uL (0.0-1.1) Eosinophils # (Auto) 0.0 x10^3/uL (0.0-0.7) Basophils # (Auto) 0.0 x10^3/uL (0.0-0.2) Sodium Level 136 mmol/L (136-145) Potassium Level 3.9 mmol/L (3.5-5.1) Chloride Level 99 mmol/L (98-107) Carbon Dioxide Level 29 mmol/L (21-32) Anion Gap 8 (6-14) Blood Urea Nitrogen 14 mg/dL (8-26) Creatinine 1.0 mg/dL (0.7-1.3) Estimated GFR (Cockcroft-Gault) 84.5 BUN/Creatinine Ratio 14 (6-20) Glucose Level 108 mg/dL (70-99) Calcium Level 8.5 mg/dL (8.5-10.1) Total Bilirubin 0.5 mg/dL (0.2-1.0) Aspartate Amino Transf (AST/SGOT) 8 U/L (15-37) Alanine Aminotransferase (ALT/SGPT) 16 U/L (16-63) Alkaline Phosphatase 81 U/L (46-116) Total Protein 7.1 g/dL (6.4-8.2) Albumin 2.7 g/dL (3.4-5.0) Albumin/Globulin Ratio 0.6 (1.0-1.7) Laboratory Tests Test 08/15/20 06:25 White Blood Count 12.8 x10^3/uL (4.0-11.0) Red Blood Count 5.03 x10^6/uL (4.30-5.70) Hemoglobin 14.0 g/dL (13.0-17.5) Hematocrit 42.3 % (39.0-53.0) Mean Corpuscular Volume 84 fL (79-100) Mean Corpuscular Hemoglobin 28 pg (25-35) Mean Corpuscular Hemoglobin Concent 33 g/dL (31-37) Red Cell Distribution Width 15.1 % (11.5-14.5) Platelet Count 397 x10^3/uL (140-400) Neutrophils (%) (Auto) 89 % (31-73) Lymphocytes (%) (Auto) 6 % (24-48) Monocytes (%) (Auto) 5 % (0-9) Eosinophils (%) (Auto) 0 % (0-3) Basophils (%) (Auto) 0 % (0-3) Neutrophils # (Auto) 11.5 x10^3/uL (1.8-7.7) Lymphocytes # (Auto) 0.8 x10^3/uL (1.0-4.8) Monocytes # (Auto) 0.6 x10^3/uL (0.0-1.1) Eosinophils # (Auto) 0.0 x10^3/uL (0.0-0.7) Basophils # (Auto) 0.0 x10^3/uL (0.0-0.2) Sodium Level 136 mmol/L (136-145) Potassium Level 3.9 mmol/L (3.5-5.1) Chloride Level 99 mmol/L (98-107) Carbon Dioxide Level 29 mmol/L (21-32) Anion Gap 8 (6-14) Blood Urea Nitrogen 14 mg/dL (8-26) Creatinine 1.0 mg/dL (0.7-1.3) Estimated GFR (Cockcroft-Gault) 84.5 BUN/Creatinine Ratio 14 (6-20) Glucose Level 108 mg/dL (70-99) Calcium Level 8.5 mg/dL (8.5-10.1) Total Bilirubin 0.5 mg/dL (0.2-1.0) Aspartate Amino Transf (AST/SGOT) 8 U/L (15-37) Alanine Aminotransferase (ALT/SGPT) 16 U/L (16-63) Alkaline Phosphatase 81 U/L (46-116) Total Protein 7.1 g/dL (6.4-8.2) Albumin 2.7 g/dL (3.4-5.0) Albumin/Globulin Ratio 0.6 (1.0-1.7) Microbiology 08/12/20 Urine Culture - Final, Complete Medications Current Medications Ondansetron HCl (Zofran) 4 mg 1X ONCE IVP Last administered on 08/12/20at 10:37; Start 08/12/20 at 10:30; Stop 08/12/20 at 10:31; Status DC Morphine Sulfate (Morphine Sulfate) 4 mg 1X ONCE IV Last administered on 08/12/20at 10:38; Start 08/12/20 at 10:30; Stop 08/12/20 at 10:31; Status DC Sodium Chloride 1,000 ml @ 1,000 mls/hr 1X ONCE IV Last administered on 08/12/20at 10:38; Start 08/12/20 at 10:30; Stop 08/12/20 at 11:29; Status DC Pharmacy Consult (C.diff Med Screen By Rx) 1 each PRN 1X PRN [facility] SEE COMMENTS; Start 08/12/20 at 10:30 Iohexol (Omnipaque 300 Mg/ml) 75 ml 1X ONCE IV Last administered on 08/12/20at 11:53; Start 08/12/20 at 12:00; Stop 08/12/20 at 12:01; Status DC Morphine Sulfate (Morphine Sulfate) 4 mg 1X ONCE IV Last administered on 08/12/20at 13:18; Start 08/12/20 at 13:15; Stop 08/12/20 at 13:16; Status DC Ondansetron HCl (Zofran) 4 mg PRN Q8HRS PRN IV NAUSEA/VOMITING Last administered on 08/12/20at 16:29; Start 08/12/20 at 13:15; Stop 08/12/20 at 21:52; Status DC Morphine Sulfate (Morphine Sulfate) 4 mg PRN Q2HR PRN IV PAIN Last administered on 08/13/20at 08:28; Start 08/12/20 at 13:15; Stop 08/13/20 at 13:14; Status DC Sodium Chloride 1,000 ml @ 100 mls/hr Q10H IV Last administered on 08/13/20at 10:46; Start 08/12/20 at 13:15; Stop 08/13/20 at 13:14; Status DC Pantoprazole Sodium (PROTONIX VIAL for IV PUSH) 40 mg DAILYAC IVP Last administered on 08/15/20at 08:42; Start 08/12/20 at 14:15 Methylprednisolone Sodium Succinate (SOLU-Medrol 40MG VIAL) 40 mg BID IV Last administered on 08/15/20at 08:42; Start 08/12/20 at 21:00 Atorvastatin Calcium (Lipitor) 20 mg QHS PO Last administered on 08/14/20at 21:00; Start 08/12/20 at 21:00 Lisinopril (Prinivil) 2.5 mg DAILY PO Last administered on 08/15/20at 08:41; Start 08/13/20 at 09:00 Mesalamine (Delzicol) 800 mg TIDAC PO Last administered on 08/13/20at 06:56; Start 08/13/20 at 07:30; Stop 08/13/20 at 07:28; Status DC Metoprolol Succinate (Toprol Xl) 12.5 mg DAILY PO Last administered on 08/15/20at 08:40; Start 08/13/20 at 09:00 Pantoprazole Sodium (Protonix) 40 mg BIDAC PO ; Start 08/13/20 at 07:30; Status UNV Tramadol HCl (Ultram) 50 mg PRN Q6HRS PRN PO MODERATE PAIN Last administered on 08/14/20at 07:27; Start 08/12/20 at 19:45 Citalopram Hydrobromide (CeleXA) 20 mg QHS PO Last administered on 08/14/20at 21:00; Start 08/12/20 at 21:00 Ondansetron HCl (Zofran) 4 mg PRN Q6HRS PRN IVP NAUSEA/VOMITING 1ST CHOICE Last administered on 08/14/20 09:01; Start 08/12/20 at 22:00 Lactobacillus Rhamnosus (Culturelle) 1 cap BID PO Last administered on 08/15/20at 08:48; Start 08/13/20 at 21:00 Acetaminophen/ Hydrocodone Bitart (Lortab 5/325) 1 tab PRN Q6HRS PRN PO BREAKTHROUGH PAIN Last administered on 08/14/20at 14:18; Start 08/13/20 at 19:30; Stop 08/14/20 at 16:20; Status DC Dicyclomine HCl (Bentyl) 10 mg PRN QID PRN PO ABDOMINAL CRAMPS Last administered on 08/15/20at 03:56; Start 08/14/20 at 10:45 Acetaminophen/ Hydrocodone Bitart (Lortab 7.5/325) 1 tab PRN Q4HRS PRN PO SEVERE PAIN Last administered on 08/15/20at 08:48; Start 08/14/20 at 16:30 Active Scripts Active Lisinopril 5 Mg Tablet 2.5 Mg PO DAILY 90 Days Metoprolol Succinate ( Xl ) (Metoprolol Succinate) 25 Mg Tab.er.24h 12.5 Mg PO DAILY 90 Days Atorvastatin Calcium 20 Mg Tablet 20 Mg PO QHS 90 Days Prednisone 20 Mg Tablet 40 Mg PO DAILY 5 Days Pantoprazole Sodium (Pantoprazole Sodium) 40 Mg Tablet.dr 40 Mg PO BIDAC 30 Days Tramadol Hcl 50 Mg Tablet 50 Mg PO PRN Q6HRS PRN 6 Days Reported Colazal (Balsalazide Disodium) 750 Mg Capsule 750 Mg PO TID Dicyclomine Hcl 10 Mg Capsule 1 Cap PO PRN QID PRN Benadryl (Diphenhydramine Hcl) 25 Mg Capsule 1 Cap PO QHS 30 Days Zyrtec (Cetirizine Hcl) 10 Mg Tablet 10 Mg PO BID Escitalopram Oxalate 10 Mg Tablet 1 Tab PO HS Vitals/I & O Vital Sign - Last 24 Hours 08/14/20 08/14/20 08/14/20 08/14/20 14:18 14:50 15:24 18:20 Temp 97.8 97.8 Pulse 75 Resp 18 B/P (MAP) 140/74 (96) Pulse Ox 95 O2 Delivery Room Air Room Air Room Air Room Air 08/14/20 08/14/20 08/14/20 08/14/20 19:27 19:40 20:00 22:03 Temp 97.9 97.9 Pulse 70 Resp 18 18 B/P (MAP) 118/66 (83) Pulse Ox 95 95 O2 Delivery Room Air Room Air Room Air Room Air 08/14/20 08/14/20 08/15/20 08/15/20 23:03 23:45 03:15 03:55 Temp 98.0 97.9 98.0 97.9 Pulse 68 62 Resp 18 18 18 B/P (MAP) 118/71 (87) 151/86 (107) Pulse Ox 95 93 93 93 O2 Delivery Room Air Room Air Room Air Room Air 08/15/20 08/15/20 08/15/20 08/15/20 04:55 07:20 07:32 08:40 Temp 97.6 97.6 Pulse 62 62 Resp 18 18 B/P (MAP) 103/61 (75) 103/61 Pulse Ox 93 97 O2 Delivery Room Air Room Air Room Air 08/15/20 08/15/20 08:41 10:50 Temp 97.8 97.8 Pulse 62 72 Resp 18 B/P (MAP) 103/61 147/86 (106) Pulse Ox 94 O2 Delivery Room Air Intake and Output 08/14/20 08/14/20 08/15/20 15:00 23:00 07:00 Intake Total 240 ml Output Total 700 ml Balance -700 ml 240 ml Justicifation of Admission Dx: Justifications for Admission: Justification of Admission Dx: Yes FULBRIGHT,ERNESTO W MD Aug 15, 2020 11:16
--- NOTE | 2020-08-15 13:49 | PDOC ---
G I PROGRESS NOTE Subjective Reports no stool last night. Is passing flatus. Some liquid stool today. Physical Exam Lungs clear. RRR Abdomen soft, not distended nor particularly tender. Review of Relevant I have reviewed the following items adis (where applicable) has been applied. Labs Laboratory Tests Test 08/15/20 06:25 White Blood Count 12.8 x10^3/uL (4.0-11.0) Red Blood Count 5.03 x10^6/uL (4.30-5.70) Hemoglobin 14.0 g/dL (13.0-17.5) Hematocrit 42.3 % (39.0-53.0) Mean Corpuscular Volume 84 fL (79-100) Mean Corpuscular Hemoglobin 28 pg (25-35) Mean Corpuscular Hemoglobin Concent 33 g/dL (31-37) Red Cell Distribution Width 15.1 % (11.5-14.5) Platelet Count 397 x10^3/uL (140-400) Neutrophils (%) (Auto) 89 % (31-73) Lymphocytes (%) (Auto) 6 % (24-48) Monocytes (%) (Auto) 5 % (0-9) Eosinophils (%) (Auto) 0 % (0-3) Basophils (%) (Auto) 0 % (0-3) Neutrophils # (Auto) 11.5 x10^3/uL (1.8-7.7) Lymphocytes # (Auto) 0.8 x10^3/uL (1.0-4.8) Monocytes # (Auto) 0.6 x10^3/uL (0.0-1.1) Eosinophils # (Auto) 0.0 x10^3/uL (0.0-0.7) Basophils # (Auto) 0.0 x10^3/uL (0.0-0.2) Sodium Level 136 mmol/L (136-145) Potassium Level 3.9 mmol/L (3.5-5.1) Chloride Level 99 mmol/L (98-107) Carbon Dioxide Level 29 mmol/L (21-32) Anion Gap 8 (6-14) Blood Urea Nitrogen 14 mg/dL (8-26) Creatinine 1.0 mg/dL (0.7-1.3) Estimated GFR (Cockcroft-Gault) 84.5 BUN/Creatinine Ratio 14 (6-20) Glucose Level 108 mg/dL (70-99) Calcium Level 8.5 mg/dL (8.5-10.1) Total Bilirubin 0.5 mg/dL (0.2-1.0) Aspartate Amino Transf (AST/SGOT) 8 U/L (15-37) Alanine Aminotransferase (ALT/SGPT) 16 U/L (16-63) Alkaline Phosphatase 81 U/L (46-116) Total Protein 7.1 g/dL (6.4-8.2) Albumin 2.7 g/dL (3.4-5.0) Albumin/Globulin Ratio 0.6 (1.0-1.7) Laboratory Tests Test 08/15/20 06:25 White Blood Count 12.8 x10^3/uL (4.0-11.0) Red Blood Count 5.03 x10^6/uL (4.30-5.70) Hemoglobin 14.0 g/dL (13.0-17.5) Hematocrit 42.3 % (39.0-53.0) Mean Corpuscular Volume 84 fL (79-100) Mean Corpuscular Hemoglobin 28 pg (25-35) Mean Corpuscular Hemoglobin Concent 33 g/dL (31-37) Red Cell Distribution Width 15.1 % (11.5-14.5) Platelet Count 397 x10^3/uL (140-400) Neutrophils (%) (Auto) 89 % (31-73) Lymphocytes (%) (Auto) 6 % (24-48) Monocytes (%) (Auto) 5 % (0-9) Eosinophils (%) (Auto) 0 % (0-3) Basophils (%) (Auto) 0 % (0-3) Neutrophils # (Auto) 11.5 x10^3/uL (1.8-7.7) Lymphocytes # (Auto) 0.8 x10^3/uL (1.0-4.8) Monocytes # (Auto) 0.6 x10^3/uL (0.0-1.1) Eosinophils # (Auto) 0.0 x10^3/uL (0.0-0.7) Basophils # (Auto) 0.0 x10^3/uL (0.0-0.2) Sodium Level 136 mmol/L (136-145) Potassium Level 3.9 mmol/L (3.5-5.1) Chloride Level 99 mmol/L (98-107) Carbon Dioxide Level 29 mmol/L (21-32) Anion Gap 8 (6-14) Blood Urea Nitrogen 14 mg/dL (8-26) Creatinine 1.0 mg/dL (0.7-1.3) Estimated GFR (Cockcroft-Gault) 84.5 BUN/Creatinine Ratio 14 (6-20) Glucose Level 108 mg/dL (70-99) Calcium Level 8.5 mg/dL (8.5-10.1) Total Bilirubin 0.5 mg/dL (0.2-1.0) Aspartate Amino Transf (AST/SGOT) 8 U/L (15-37) Alanine Aminotransferase (ALT/SGPT) 16 U/L (16-63) Alkaline Phosphatase 81 U/L (46-116) Total Protein 7.1 g/dL (6.4-8.2) Albumin 2.7 g/dL (3.4-5.0) Albumin/Globulin Ratio 0.6 (1.0-1.7) Microbiology 08/12/20 Urine Culture - Final, Complete Vitals/I & O Vital Sign - Last 24 Hours 08/14/20 08/14/20 08/14/20 08/14/20 14:18 14:50 15:24 18:20 Temp 97.8 97.8 Pulse 75 Resp 18 B/P (MAP) 140/74 (96) Pulse Ox 95 O2 Delivery Room Air Room Air Room Air Room Air 08/14/20 08/14/20 08/14/20 08/14/20 19:27 19:40 20:00 22:03 Temp 97.9 97.9 Pulse 70 Resp 18 18 B/P (MAP) 118/66 (83) Pulse Ox 95 95 O2 Delivery Room Air Room Air Room Air Room Air 08/14/20 08/14/20 08/15/20 08/15/20 23:03 23:45 03:15 03:55 Temp 98.0 97.9 98.0 97.9 Pulse 68 62 Resp 18 18 18 B/P (MAP) 118/71 (87) 151/86 (107) Pulse Ox 95 93 93 93 O2 Delivery Room Air Room Air Room Air Room Air 08/15/20 08/15/20 08/15/20/14/21 04:55 07:20 07:32 08:40 Temp 97.6 97.6 Pulse 62 62 Resp 18 18 B/P (MAP) 103/61 (75) 103/61 Pulse Ox 93 97 O2 Delivery Room Air Room Air Room Air 08/15/20 08/15/20 08:41 10:50 Temp 97.8 97.8 Pulse 62 72 Resp 18 B/P (MAP) 103/61 147/86 (106) Pulse Ox 94 O2 Delivery Room Air Intake and Output 08/14/20 08/14/20 08/15/20 15:00 23:00 07:00 Intake Total 240 ml Output Total 700 ml Balance -700 ml 240 ml Problem List Problems Medical Problems: (1) Abdominal pain Status: Acute (2) Exacerbation of Crohn's disease of large intestine Status: Acute Assessment Suspect KAT with flare. Seems better. May need to consider different biologic as Entyvio doesn't seem to be cutting the mustard. Plan of Care Note Continue IV steroids. Will liberalize diet some. If good on diet, po steroids. Justicifation of Admission Dx: Justifications for Admission: Justification of Admission Dx: Yes FABIO ONEILL MD Aug 15, 2020 13:49
[2020-08-15 14:38] VITALS: BP 144/79
[2020-08-15] MEDS: ONDANSETRON PF 4 MG/2 ML VIAL. IVP PRN (15:00)
[2020-08-15 19:30] VITALS: BP 142/84
[2020-08-15] MEDS: ATORVASTATIN CALCIUM 20 MG TABLET PO SCH (20:23)
[2020-08-15] MEDS: CITALOPRAM 20 MG TABLET. PO SCH (20:23)
[2020-08-15 23:44] VITALS: BP 113/74
[2020-08-16 03:16] VITALS: BP 145/88
[2020-08-16] MEDS: HYDROcodone/APAP 7.5/325MG 1 TAB TABLET PO PRN ×4 (03:26→21:09)
[2020-08-16 07:21] VITALS: BP 141/81
[2020-08-16] MEDS: DICYCLOMINE HCL 10 MG CAPSULE PO PRN ×2 (07:48→19:18)
--- NOTE | 2020-08-16 08:21 | PDOC ---
[facility] PROGRESS NOTE Date of Service DOS: DATE: 08/16/20 TIME: 08:17 Chief Complaint Chief Complaint ASSESSMENT AND PLAN: acute Crohn's flare. extending from the distal transverse colon to the proximal sigmoid colon. also segmental colitis involving the cecum morbid obesity plan admitted. consult GI. IV steroids, home medications, DVT prophylaxis. Full code. History of Present Illness History of Present Illness Mr Curry is a 34-year-old male w/ PMHx Crohn's disease diagnosed in 2019 controlled on Entyvio, steroids who comes to ED c/o nausea, diarrhea and abdominal pain. CT abdomen consistent with acute inflammatory bowel disease. Symptoms are rated at 9/10. He has associated nausea. It has been occurring off and on for months, described as very irritating, worse with food, better with no food. Admitted for further care, started on IV steroids and consulted GI. 08/13: five small bloody mucous stools since 3:00 a.m. 08/14: pos flatus some blood per rectum 08/15: May need to consider different biologic. Still requiring IV steroids. Pain improving Afebrile. Still requiring IV steroids with severe pain on BM with nausea and dry-heaving, notes he had no vomit as his stomach was empty. Passing more flatus and belching. His stool is mucous and blood tinged, not back to his baseline "pudding" bowel movements yet. Vitals/I&O Vitals/I&O: Vital Signs Date Time Temp Pulse Resp B/P (MAP) Pulse Ox O2 Delivery O2 Flow Rate FiO2 08/16/20 07:21 97.7 66 18 141/81 (101) 94 Room Air 97.7 I & O 08/15/20 08/15/20 08/16/20 15:00 23:00 07:00 Intake Total 240 ml Balance 240 ml Physical Exam Physical Exam: PHYSICAL EXAMINATION: VITALS: Within normal limits and are stable. GENERAL: No apparent distress. Alert and oriented. HEENT: Normal cephalic atraumatic, external auditory canals are patent. EYES: Extraocular muscles are intact, pupils are equally round and reactive to light and accommodation. MUSCULOSKELETAL: Well developed, well nourished, good range of motion. ENDOCRINE: No thyromegaly was palpated. LYMPHATICS: No cervical chain or axillary nodes were noted. HEMATOPOIETIC: No bruising. NECK: Supple, no JVD, no thyromegaly was noted. LUNGS: Clear to auscultation in all lung franco without rhonchi or wheezing. HEART: RRR, S1, S2 present. Peripheral pulses intact, no obvious murmurs were noted. ABDOMEN: Soft, nontender. Positive bowel sounds no organomegaly, normal bowel sounds. EXTREMITIES: Without any cyanosis, clubbing, or edema. Pedal pulses intact, Homans sign is negative. NEUROLOGIC: Normal speech, normal tone. A & O x 3, moves all extremities, no obvious focal deficits. PSYCHIATRIC: Normal affect, normal mood. Stable. SKIN: No ulcerations or rashes, good skin turgor, no jaundice. VASCULAR: Good capillary refill, neurovascular bundle appears to be intact. General: Alert, Oriented X3, Cooperative, No acute distress Heart: Regular rate Lungs: Clear Abdomen: Normal bowel sounds, Soft Extremities: No clubbing, No cyanosis, No edema Skin: No significant lesion Assessment and Plan Assessmemt and Plan Problems Medical Problems: (1) Abdominal pain Status: Acute (2) Exacerbation of Crohn's disease of large intestine Status: Acute Comment Review of Relevant I have reviewed the following items adis (where applicable) has been applied. Justifications for Admission Other Justification ISABELLA LACKEY MD Aug 16, 2020 08:20
[2020-08-16] MEDS: LISINOPRIL 5 MG TABLET. PO SCH (09:40)
[2020-08-16] MEDS: LACTOBACILLUS RHAMNOSUS GG 1 CAPSULE. PO SCH ×2 (09:41→21:08)
[2020-08-16] MEDS: METOPROLOL SUCC 24HR ER 25 MG TAB.ER.24H. PO SCH (09:41)
[2020-08-16] MEDS: PANTOPRAZOLE IV PUSH 40 MG VIAL. IVP SCH (09:42)
[2020-08-16] MEDS: methylPREDNISolone SOD SUCC PF 40 MG/ML VIAL. IV SCH ×2 (09:48→21:09)
--- NOTE | 2020-08-16 09:56 | NUR ---
SW following. Discussed with RN, pt from home with , room air, full liquid diet. RN advised no SW needs at this time. SW will continue to follow.
--- NOTE | 2020-08-16 10:30 | PDOC ---
Date of Service: DATE: 08/16/20 TIME: 10:26 Subjective: Subjective: Glad to be eating full liquids - feels better eating more. Still describes "gas" pain - passing lots more gas (flatus, belching) - can be 10/10 left-sided cramping during this. Not passing much stool - less frequent, lesser amount - "mucous" and "like yogurt balls" - no blood. Objective: Vital Signs: Vital Signs Date Time Temp Pulse Resp B/P (MAP) Pulse Ox O2 Delivery O2 Flow Rate FiO2 08/16/20 09:41 66 141/81 08/16/20 07:21 97.7 18 94 Room Air 97.7 PE: GEN: NAD LUNGS: CTAB HEART: RRR ABD: NABS, S/ND/NT NEURO/PSYCH: A & O 3 A/P: IBD flare (suspect UC - on Entyvio and PO steroids as outpt), abd cramping/tenesmus - stool tests negative H/o GERD and C Diff H/o COVID 06/2020 -- Less diarrhea, still has tenesmus/pain. Continue same for now. Justicifation of Admission Dx: Justifications for Admission: Justification of Admission Dx: Yes FER ROSENBERG Aug 16, 2020 10:30
[2020-08-16 10:44] VITALS: BP 122/70
[2020-08-16] MEDS: ONDANSETRON PF 4 MG/2 ML VIAL. IVP PRN (11:27)
[2020-08-16 14:30] VITALS: BP 118/69
[2020-08-16 19:00] VITALS: BP 126/87
[2020-08-16] MEDS: traMADol 50 MG TABLET PO PRN (19:18)
[2020-08-16] MEDS: ATORVASTATIN CALCIUM 20 MG TABLET PO SCH (21:08)
[2020-08-16] MEDS: CITALOPRAM 20 MG TABLET. PO SCH (21:08)
[2020-08-16 23:00] VITALS: BP 110/68
[2020-08-17 03:00] VITALS: BP 97/62
[2020-08-17] MEDS: PANTOPRAZOLE 40 MG TABLET.DR. PO SCH (06:08)
[2020-08-17] MEDS: predniSONE 20 MG TABLET PO SCH ×3 (06:38→19:47)
[2020-08-17 07:00] VITALS: BP 142/96
[2020-08-17] MEDS: DICYCLOMINE HCL 10 MG CAPSULE PO PRN ×2 (09:14→19:46)
[2020-08-17] MEDS: LACTOBACILLUS RHAMNOSUS GG 1 CAPSULE. PO SCH ×2 (09:14→19:47)
[2020-08-17] MEDS: LISINOPRIL 5 MG TABLET. PO SCH (09:15)
[2020-08-17] MEDS: HYDROcodone/APAP 7.5/325MG 1 TAB TABLET PO PRN ×2 (09:16→19:47)
[2020-08-17] MEDS: ONDANSETRON PF 4 MG/2 ML VIAL. IVP PRN ×2 (09:19→19:51)
[2020-08-17] MEDS: METOPROLOL SUCC 24HR ER 25 MG TAB.ER.24H. PO SCH (09:19)
--- NOTE | 2020-08-17 10:16 | PDOC ---
Date of Service: DATE: 08/17/20 TIME: 10:11 Subjective: Subjective: Says he's "better and worse." Slept well for the first time in awhile - glad for that. Thinks slept well because able to pass a lot of gas before bed. Then had a stool this morning (thicker, maybe with a little "hemorrhoid" blood) and now has some pretty painful left-sided cramping. Tolerating full liquids, would like to try something soft like potatoes for lunch. Objective: Objective: Nurse present - some mix-up with prednisone dosing but got it straightened out - last dose of IV steroids last night, started PO this morning. Vital Signs: Vital Signs Date Time Temp Pulse Resp B/P (MAP) Pulse Ox O2 Delivery O2 Flow Rate FiO2 08/17/20 09:19 74 142/96 08/17/20 08:00 Room Air 08/17/20 07:00 98.2 18 97 98.2 PE: GEN: NAD LUNGS: CTAB HEART: RRR ABD: NABS, S/ND - he is holding left mid abdomen NEURO/PSYCH: A & O 3 A/P: IBD (?UC) flare -- I think improving overall - slept through the night, less diarrhea, would like to advance diet - still c/o left-sided cramping after stooling. Try mashed potatoes, etc. for lunch, observe on PO steroids. Justicifation of Admission Dx: Justifications for Admission: Justification of Admission Dx: Yes FER ROSENBERG Aug 17, 2020 10:16
[2020-08-17 10:52] VITALS: BP 118/73
--- NOTE | 2020-08-17 13:23 | PDOC ---
[facility] [facility] PROGRESS NOTE Date of Service DOS: DATE: 08/17/20 TIME: 13:20 Chief Complaint Chief Complaint A/P: Acute Crohn's flare. extending from the distal transverse colon to the proximal sigmoid colon. also segmental colitis involving the cecum Morbid obesity plan: admitted. consult GI. IV steroids, home medications, DVT prophylaxis. Full code. History of Present Illness History of Present Illness Mr Curry is a 34-year-old male w/ PMHx Crohn's disease diagnosed in 2019 controlled on Entyvio, steroids who comes to ED c/o nausea, diarrhea and abdominal pain. CT abdomen consistent with acute inflammatory bowel disease. Symptoms are rated at 9/10. He has associated nausea. It has been occurring off and on for months, described as very irritating, worse with food, better with no food. Admitted for further care, started on IV steroids and consulted GI. 08/13: five small bloody mucous stools since 3:00 a.m. 08/14: pos flatus some blood per rectum 08/15: May need to consider different biologic. Still requiring IV steroids. Pain improving 08/16: Afebrile. Still requiring IV steroids with severe pain on BM with nausea and dry-heaving, notes he had no vomit as his stomach was empty. Passing more flatus and belching. His stool is mucous and blood tinged, not back to his bas gregg "pudding" bowel movements yet. Afebrile overnight. Switch to oral prednisone this morning per GI. Still havi ng some dry heaving with BM but has much more volume to his stool today. No vomiting passing good flatus and belching. Vitals/I&O Vitals/I&O: Vital Signs Date Time Temp Pulse Resp B/P (MAP) Pulse Ox O2 Delivery O2 Flow Rate FiO2 08/17/20 10:52 97.8 81 18 118/73 (88) 93 Room Air 97.8 Physical Exam Physical Exam: PHYSICAL EXAMINATION: VITALS: Within normal limits and are stable. GENERAL: No apparent distress. Alert and oriented. HEENT: Normal cephalic atraumatic, external auditory canals are patent. EYES: Extraocular muscles are intact, pupils are equally round and reactive to light and accommodation. MUSCULOSKELETAL: Well developed, well nourished, good range of motion. ENDOCRINE: No thyromegaly was palpated. LYMPHATICS: No cervical chain or axillary nodes were noted. HEMATOPOIETIC: No bruising. NECK: Supple, no JVD, no thyromegaly was noted. LUNGS: Clear to auscultation in all lung franco without rhonchi or wheezing. HEART: RRR, S1, S2 present. Peripheral pulses intact, no obvious murmurs were noted. ABDOMEN: Soft, nontender. Positive bowel sounds no organomegaly, normal bowel sounds. EXTREMITIES: Without any cyanosis, clubbing, or edema. Pedal pulses intact, Homans sign is negative. NEUROLOGIC: Normal speech, normal tone. A & O x 3, moves all extremities, no obvious focal deficits. PSYCHIATRIC: Normal affect, normal mood. Stable. SKIN: No ulcerations or rashes, good skin turgor, no jaundice. VASCULAR: Good capillary refill, neurovascular bundle appears to be intact. General: Alert, Oriented X3, Cooperative, No acute distress Heart: Regular rate Lungs: Clear Abdomen: Normal bowel sounds, Soft Extremities: No clubbing, No cyanosis, No edema Skin: No significant lesion Assessment and Plan Assessmemt and Plan Problems Medical Problems: (1) Abdominal pain Status: Acute (2) Exacerbation of Crohn's disease of large intestine Status: Acute Comment Review of Relevant I have reviewed the following items adis (where applicable) has been applied. Medications: Current Medications Medications (Trade) Dose Ordered Sig/Jose Martin Route PRN Reason Start Time Stop Time Status Last Admin Dose Admin Pantoprazole Sodium (Protonix) 40 mg DAILYAC PO 08/17/20 07:30 08/17/20 06:08 Prednisone (Prednisone) 40 mg BID PO 08/17/20 07:00 08/17/20 06:38 Justifications for Admission Other Justification ISABELLA LACKEY MD Aug 17, 2020 13:23
[2020-08-17 15:00] VITALS: BP 116/77
[2020-08-17 19:00] VITALS: BP 120/75
[2020-08-17] MEDS: ATORVASTATIN CALCIUM 20 MG TABLET PO SCH (19:47)
[2020-08-17] MEDS: CITALOPRAM 20 MG TABLET. PO SCH (19:47)
[2020-08-17 23:00] VITALS: BP 113/66
[2020-08-18 03:00] VITALS: BP 111/72
[2020-08-18] MEDS: PANTOPRAZOLE 40 MG TABLET.DR. PO SCH (05:27)
[2020-08-18] MEDS: DICYCLOMINE HCL 10 MG CAPSULE PO PRN (05:27)
[2020-08-18 07:08] VITALS: BP 118/73
[2020-08-18] MEDS: predniSONE 20 MG TABLET PO SCH (08:29)
[2020-08-18] MEDS: METOPROLOL SUCC 24HR ER 25 MG TAB.ER.24H. PO SCH (08:29)
[2020-08-18] MEDS: LACTOBACILLUS RHAMNOSUS GG 1 CAPSULE. PO SCH (08:29)
[2020-08-18] MEDS: LISINOPRIL 5 MG TABLET. PO SCH (08:30)
--- NOTE | 2020-08-18 08:45 | PDOC ---
[facility] PROGRESS NOTE Date of Service DOS: DATE: 08/18/20 TIME: 08:45 Chief Complaint Chief Complaint A/P: Acute Crohn's flare. extending from the distal transverse colon to the proximal sigmoid colon. also segmental colitis involving the cecum Morbid obesity plan: admitted. consult GI. IV steroids, home medications, DVT prophylaxis. Full code. History of Present Illness History of Present Illness Mr Curry is a 34-year-old male w/ PMHx Crohn's disease diagnosed in 2019 controlled on Entyvio, steroids who comes to ED c/o nausea, diarrhea and abdominal pain. CT abdomen consistent with acute inflammatory bowel disease. Symptoms are rated at 9/10. He has associated nausea. It has been occurring off and on for months, described as very irritating, worse with food, better with no food. Admitted for further care, started on IV steroids and consulted GI. 08/13: five small bloody mucous stools since 3:00 a.m. 08/14: pos flatus some blood per rectum 08/15: May need to consider different biologic. Still requiring IV steroids. Pain improving 08/16: Afebrile. Still requiring IV steroids with severe pain on BM with nausea and dry-heaving, notes he had no vomit as his stomach was empty. Passing more flatus and belching. His stool is mucous and blood tinged, not back to his bas gregg "pudding" bowel movements yet. 08/17: Afebrile overnight. Switch to oral prednisone this morning per GI. Still having some dry heaving with BM but has much more volume to his stool today. No vomiting passing good flatus and belching. Afebrile overnight tolerating oral prednisone well. He feels well enough to leave the hospital on 40 mg twice daily prednisone. I discussed with GI. He is likely on a change to a different biologic outpatient likely Remicade. Vitals/I&O Vitals/I&O: Vital Signs Date Time Temp Pulse Resp B/P (MAP) Pulse Ox O2 Delivery O2 Flow Rate FiO2 08/18/20 08:30 86 118/73 08/18/20 07:08 97.8 18 97 Room Air 97.8 I & O 08/17/20 08/17/20 08/18/20 15:00 23:00 07:00 Intake Total 400 ml 200 ml Balance 400 ml 200 ml Physical Exam Physical Exam: PHYSICAL EXAMINATION: VITALS: Within normal limits and are stable. GENERAL: No apparent distress. Alert and oriented. HEENT: Normal cephalic atraumatic, external auditory canals are patent. EYES: Extraocular muscles are intact, pupils are equally round and reactive to light and accommodation. MUSCULOSKELETAL: Well developed, well nourished, good range of motion. ENDOCRINE: No thyromegaly was palpated. LYMPHATICS: No cervical chain or axillary nodes were noted. HEMATOPOIETIC: No bruising. NECK: Supple, no JVD, no thyromegaly was noted. LUNGS: Clear to auscultation in all lung franco without rhonchi or wheezing. HEART: RRR, S1, S2 present. Peripheral pulses intact, no obvious murmurs were noted. ABDOMEN: Soft, nontender. Positive bowel sounds no organomegaly, normal bowel sounds. EXTREMITIES: Without any cyanosis, clubbing, or edema. Pedal pulses intact, Homans sign is negative. NEUROLOGIC: Normal speech, normal tone. A & O x 3, moves all extremities, no obvious focal deficits. PSYCHIATRIC: Normal affect, normal mood. Stable. SKIN: No ulcerations or rashes, good skin turgor, no jaundice. VASCULAR: Good capillary refill, neurovascular bundle appears to be intact. General: Alert, Oriented X3, Cooperative, No acute distress Heart: Regular rate Lungs: Clear Abdomen: Normal bowel sounds, Soft Extremities: No clubbing, No cyanosis, No edema Skin: No significant lesion Assessment and Plan Assessmemt and Plan Problems Medical Problems: (1) Abdominal pain Status: Acute (2) Exacerbation of Crohn's disease of large intestine Status: Acute Comment Review of Relevant I have reviewed the following items adis (where applicable) has been applied. Justifications for Admission Other Justification ISABELLA LACKEY MD Aug 18, 2020 08:45
--- NOTE | 2020-08-18 09:48 | NUR ---
SW following. Discussed with RN, pt from home, room air, GI soft. RN advised no SW needs at this time, anticipates pt will be discharging home today with self care. SW will continue to follow.
[2020-08-18 09:54] LABS: BASO % 0 % (0-3); EOS % 0 % (0-3); HEMATOCRIT 46.8 % (39.0-53.0); HEMOGLOBIN 15.3 g/dL (13.0-17.5); LYMPH # 1.9 x10^3/uL (1.0-4.8); LYMPH % 12 % (24-48); MEAN CORPUSCULAR HEMOGLOBIN 28 pg (25-35); MEAN CORPUSCULAR HGB CONC 33 g/dL (31-37); MEAN CORPUSCULAR VOLUME 84 fL (79-100); MONO % 7 % (0-9); NEUT # 12.9 x10^3/uL (1.8-7.7); NEUT % 81 % (31-73); PLATELET COUNT 490 x10^3/uL (140-400); RED BLOOD COUNT 5.56 x10^6/uL (4.30-5.70); RED CELL DISTRIBUTION WIDTH 15.2 % (11.5-14.5)
--- NOTE | 2020-08-18 10:04 | PDOC ---
Date of Service: DATE: 08/18/20 TIME: 09:58 Subjective: Subjective: Feels good. On the phone with his who has been in contact w/ Laura at our office about a note for work - he'd like to return Sunday. Still some cramping after stooling - helps to take Bentyl first. Feels well enough to go home. Dad has Crohn's. Objective: Vital Signs: Vital Signs Date Time Temp Pulse Resp B/P (MAP) Pulse Ox O2 Delivery O2 Flow Rate FiO2 08/18/20 08:30 86 118/73 08/18/20 08:10 Room Air 08/18/20 07:08 97.8 18 97 97.8 PE: GEN: NAD LUNGS: CTAB HEART: RRR ABD: S/ND/NT NEURO/PSYCH: A & O 3 A/P: IBD (?UC) flare -- Okay to DC per GI - has plans to follow-up w/ our office, have discussed trying another biologic, etc. Will provide Rx for prednisone and Bentyl per his request. Justicifation of Admission Dx: Justifications for Admission: Justification of Admission Dx: Yes FER ROSENBERG Aug 18, 2020 10:04
[2020-08-18 10:17] LABS: ALBUMIN 2.8 g/dL (3.4-5.0); ALBUMIN/GLOBULIN RATIO 0.6 (1.0-1.7); C-REACTIVE PROTEIN 26.8 mg/L (0-3.3); CALCIUM 9.1 mg/dL (8.5-10.1); CREATININE 1.3 mg/dL (0.7-1.3); GFR 62.5; POTASSIUM 3.9 mmol/L (3.5-5.1); TOTAL BILIRUBIN 0.5 mg/dL (0.2-1.0); TOTAL PROTEIN 7.7 g/dL (6.4-8.2)
[2020-08-18 10:22] VITALS: BP 154/92
--- NOTE | 2020-08-18 11:44 | PDOC3 ---
Discharge Summary Visit Information Date of Admission: Aug 12, 2020 Date of Discharge: Aug 18, 2020 Admitting Diagnosis: Acute crohn's flare Final Diagnosis Problems Medical Problems: (1) Abdominal pain Status: Acute (2) Exacerbation of Crohn's disease of large intestine Status: Acute Brief Hospital Course Allergies Allergies Coded Allergies Type Severity Reaction Last Updated Verified No Known Medication Allergies Allergy Unknown 08/12/20 Yes acetaminophen Adverse Reaction Intermediate Nausea and Vomiting 07/30/18 Yes oxycodone Adverse Reaction Intermediate Nausea and Vomiting 07/30/18 Yes Vital Signs Vital Signs Date Time Temp Pulse Resp B/P (MAP) Pulse Ox O2 Delivery O2 Flow Rate FiO2 08/18/20 10:22 97.6 90 18 154/92 (112) 96 Room Air 97.6 Lab Results Laboratory Tests Test 08/18/20 09:25 White Blood Count 16.0 x10^3/uL (4.0-11.0) Red Blood Count 5.56 x10^6/uL (4.30-5.70) Hemoglobin 15.3 g/dL (13.0-17.5) Hematocrit 46.8 % (39.0-53.0) Mean Corpuscular Volume 84 fL (79-100) Mean Corpuscular Hemoglobin 28 pg (25-35) Mean Corpuscular Hemoglobin Concent 33 g/dL (31-37) Red Cell Distribution Width 15.2 % (11.5-14.5) Platelet Count 490 x10^3/uL (140-400) Neutrophils (%) (Auto) 81 % (31-73) Lymphocytes (%) (Auto) 12 % (24-48) Monocytes (%) (Auto) 7 % (0-9) Eosinophils (%) (Auto) 0 % (0-3) Basophils (%) (Auto) 0 % (0-3) Neutrophils # (Auto) 12.9 x10^3/uL (1.8-7.7) Lymphocytes # (Auto) 1.9 x10^3/uL (1.0-4.8) Monocytes # (Auto) 1.0 x10^3/uL (0.0-1.1) Eosinophils # (Auto) 0.0 x10^3/uL (0.0-0.7) Basophils # (Auto) 0.0 x10^3/uL (0.0-0.2) Sodium Level 139 mmol/L (136-145) Potassium Level 3.9 mmol/L (3.5-5.1) Chloride Level 97 mmol/L (98-107) Carbon Dioxide Level 32 mmol/L (21-32) Anion Gap 10 (6-14) Blood Urea Nitrogen 15 mg/dL (8-26) Creatinine 1.3 mg/dL (0.7-1.3) Estimated GFR (Cockcroft-Gault) 62.5 BUN/Creatinine Ratio 12 (6-20) Glucose Level 97 mg/dL (70-99) Calcium Level 9.1 mg/dL (8.5-10.1) Total Bilirubin 0.5 mg/dL (0.2-1.0) Aspartate Amino Transf (AST/SGOT) 6 U/L (15-37) Alanine Aminotransferase (ALT/SGPT) 16 U/L (16-63) Alkaline Phosphatase 79 U/L (46-116) C-Reactive Protein, Quantitative 26.8 mg/L (0-3.3) Total Protein 7.7 g/dL (6.4-8.2) Albumin 2.8 g/dL (3.4-5.0) Albumin/Globulin Ratio 0.6 (1.0-1.7) Laboratory Tests Test 08/18/20 09:25 White Blood Count 16.0 x10^3/uL (4.0-11.0) Red Blood Count 5.56 x10^6/uL (4.30-5.70) Hemoglobin 15.3 g/dL (13.0-17.5) Hematocrit 46.8 % (39.0-53.0) Mean Corpuscular Volume 84 fL (79-100) Mean Corpuscular Hemoglobin 28 pg (25-35) Mean Corpuscular Hemoglobin Concent 33 g/dL (31-37) Red Cell Distribution Width 15.2 % (11.5-14.5) Platelet Count 490 x10^3/uL (140-400) Neutrophils (%) (Auto) 81 % (31-73) Lymphocytes (%) (Auto) 12 % (24-48) Monocytes (%) (Auto) 7 % (0-9) Eosinophils (%) (Auto) 0 % (0-3) Basophils (%) (Auto) 0 % (0-3) Neutrophils # (Auto) 12.9 x10^3/uL (1.8-7.7) Lymphocytes # (Auto) 1.9 x10^3/uL (1.0-4.8) Monocytes # (Auto) 1.0 x10^3/uL (0.0-1.1) Eosinophils # (Auto) 0.0 x10^3/uL (0.0-0.7) Basophils # (Auto) 0.0 x10^3/uL (0.0-0.2) Sodium Level 139 mmol/L (136-145) Potassium Level 3.9 mmol/L (3.5-5.1) Chloride Level 97 mmol/L (98-107) Carbon Dioxide Level 32 mmol/L (21-32) Anion Gap 10 (6-14) Blood Urea Nitrogen 15 mg/dL (8-26) Creatinine 1.3 mg/dL (0.7-1.3) Estimated GFR (Cockcroft-Gault) 62.5 BUN/Creatinine Ratio 12 (6-20) Glucose Level 97 mg/dL (70-99) Calcium Level 9.1 mg/dL (8.5-10.1) Total Bilirubin 0.5 mg/dL (0.2-1.0) Aspartate Amino Transf (AST/SGOT) 6 U/L (15-37) Alanine Aminotransferase (ALT/SGPT) 16 U/L (16-63) Alkaline Phosphatase 79 U/L (46-116) C-Reactive Protein, Quantitative 26.8 mg/L (0-3.3) Total Protein 7.7 g/dL (6.4-8.2) Albumin 2.8 g/dL (3.4-5.0) Albumin/Globulin Ratio 0.6 (1.0-1.7) Brief Hospital Course Mr Curry is a 34-year-old male w/ PMHx Crohn's disease diagnosed in 2019 controlled on Entyvio, steroids who comes to ED c/o nausea, diarrhea and abdominal pain. CT abdomen consistent with acute inflammatory bowel disease. Symptoms are rated at 9/10. He has associated nausea. It has been occurring off and on for months, described as very irritating, worse with food, better with no food. Admitted for further care, started on IV steroids and consulted GI. 08/13: five small bloody mucous stools since 3:00 a.m. Still on IV steroids, IV antiemetics 08/14: pos flatus some blood per rectum 08/15: May need to consider different biologic. Still requiring IV steroids. Pain improving 08/16: Afebrile. Still requiring IV steroids with severe pain on BM with nausea and dry-heaving, notes he had no vomit as his stomach was empty. Passing more flatus and belching. His stool is mucous and blood tinged, not back to his baseline "pudding" bowel movements yet. 08/17: Afebrile overnight. Switch to oral prednisone this morning per GI. Still having some dry heaving with BM but has much more volume to his stool today. No vomiting passing good flatus and belching. Afebrile overnight tolerating oral prednisone well. He feels well enough to leave the hospital on 40 mg twice daily prednisone. I discussed with GI. He is likely on a change to a different biologic outpatient likely Remicade. Consults: GI Problem list: Acute Crohn's flare. extending from the distal transverse colon to the proximal sigmoid colon. also segmental colitis involving the cecum Morbid obesity - likely related to chronic steroids as his albumin is low due to malnutrition from malabsorption DONIS - vasomotor nephropathy, hydrated, improved to Cr 1 from 1.4 Severe protein calorie malnutrition - due to malabsorption due to crohns Greater than 30 minutes spent on d/c home with self care. Discharge Information Condition at Discharge: Improved Follow Up: Weeks (1) Disposition/Orders: D/C to Home Scheduled Atorvastatin Calcium (Atorvastatin Calcium) 20 Mg Tablet, 20 MG PO QHS for CAD for 90 Days, #90 Ref 3 Prescribed by: ISABELLA LACKEY MD on 01/09/19 4123 Last Taken: Unknown Dose on 08/11/20 Last Action: Continued on 08/12/201942 by ELIZABETH ANNE Cetirizine Hcl (Zyrtec) 10 Mg Tablet, 10 MG PO BID for allergy, (Reported) Entered as Reported by: ELIZABETH ANNE on 08/13/20734 Last Taken: Unknown Dose on Unknown Date & Time Last Action: New Order on 08/13/20734 by ELIZABETH ANNE Diphenhydramine Hcl (Benadryl) 25 Mg Capsule, 1 CAP PO QHS for sleep for 30 Days, #30 Ref 0 (Reported) Entered as Reported by: ELIZABETH ANNE on 08/13/20 0735 Last Taken: Unknown Dose on Unknown Date & Time Last Action: New Order on 08/13/20734 by ELIZABETH ANNE Escitalopram Oxalate (Escitalopram Oxalate) 10 Mg Tablet, 1 TAB PO HS for depression, #30 Ref 3 (Reported) Entered as Reported by: ELIZABETH ANNE on 08/12/201944 Last Taken: Unknown Dose on 08/11/20 Last Action: Converted on 08/12/201944 by ELIZABETH ANNE Lactobacillus Rhamnosus Gg (Culturelle) 1 Each Cap.sprink, 1 CAP PO BID for Colitis for 30 Days, #60 Prescribed by: ISABELLA LACKEY MD on 08/18/20 1217 Lisinopril (Lisinopril) 5 Mg Tablet, 2.5 MG PO DAILY for HTN for 90 Days, #45 Ref 3 Prescribed by: ISABELLA LACKEY MD on 01/09/19 1435 Last Taken: Unknown Dose on 08/12/20 Last Action: Continued on 08/12/201942 by ELIZABETH ANNE Metoprolol Succinate (Metoprolol Succinate ( Xl )) 25 Mg Tab.er.24h, 12.5 MG PO DAILY for CAD for 90 Days, #45 Ref 3 Prescribed by: ISABELLA LACKEY MD on 01/09/19 1435 Last Taken: Unknown Dose on 08/12/20 Last Action: Continued on 08/12/201942 by ELIZABETH ANNE Pantoprazole Sodium (Pantoprazole Sodium ) 40 Mg Tablet.dr, 40 MG PO BIDAC for GERD for 30 Days, #60 Prescribed by: ISABELLA LACKEY MD on 01/07/19 1245 Last Taken: Unknown Dose on 08/12/20 Last Action: Continued on 08/12/201942 by ELIZABETH ANNE Prednisone (Prednisone) 20 Mg Tablet, 40 MG PO BID for IBD flare for 30 Days, #120 Prescribed by: ISABELLA LACKEY MD on 08/18/20 1217 Scheduled PRN Dicyclomine Hcl (Dicyclomine Hcl) 10 Mg Capsule, 1 CAP PO PRN QID PRN for ABDOMINAL CRAMPS, #90 Ref 11 (Reported) Entered as Reported by: ELIZABETH ANNE on 08/13/20734 Last Taken: Unknown Dose on Unknown Date & Time Last Action: Edited on 08/14/20 08 by BOUCHRA BLAKE RN Tramadol Hcl (Tramadol Hcl) 50 Mg Tablet, 50 MG PO PRN Q6HRS PRN for PAIN for 6 Days, #20 Prescribed by: ISABELLA LACKEY MD on 01/07/19 1245 Last Taken: Unknown Dose on Unknown Date & Time Last Action: Continued on 08/12/201943 by ELIZABETH ANNE Discontinued Medications Balsalazide Disodium (Colazal) 750 Mg Capsule, 750 MG PO TID for ulcerative colitis, (Reported) Entered as Reported by: ELIZABETH ANNE on 08/13/20734 Last Taken: Unknown Dose on Unknown Date & Time Last Action: New Order on 08/13/20734 by ELIZABETH ANNE Justicifation of Admission Dx: Justifications for Admission: Justification of Admission Dx: Yes ISABELLA LACKEY MD Aug 18, 2020 11:44
[2020-08-18] MEDS ORDERED: PRED20TA PO (12:17)
[2020-08-18] MEDS ORDERED: LACT1CAP19 PO (12:17)
--- NOTE | 2020-08-18 12:42 | NUR ---
Patient left around 1240. IV discontinued without any complications noted. Discharge paperwork gone over with the patient. Scripts given for prednisone and bentyl. No concerns noted at discharge.
== END 2020-08-18 12:43 | disposition home or self-care (01) | DRG 385 ==
LOC: ER 09:32 → 4 NORTH 13:11
PROVIDERS: ADMIT Internal Medicine; ATTEND Internal Medicine
DX: K50.111 Crohn's disease of large intestine with rectal bleeding (principal); E43 Unspecified severe protein-calorie malnutrition; N17.0 Acute kidney failure with tubular necrosis; E78.00 Pure hypercholesterolemia, unspecified; F32.9 Major depressive disorder, single episode, unspecified; I25.10 Atherosclerotic heart disease of native coronary artery without angina pectoris; K21.9 Gastro-esophageal reflux disease without esophagitis; Z86.16 Personal history of COVID-19; T38.0X5A Adverse effect of glucocorticoids and synthetic analogues, initial encounter; I10 Essential (primary) hypertension; D72.829 Elevated white blood cell count, unspecified; R19.8 Other specified symptoms and signs involving the digestive system and abdomen; E66.01 Morbid (severe) obesity due to excess calories; E78.5 Hyperlipidemia, unspecified; Z68.35 Body mass index [BMI] 35.0-35.9, adult; I25.2 Old myocardial infarction; Z88.6 Allergy status to analgesic agent; Z88.5 Allergy status to narcotic agent; Z83.3 Family history of diabetes mellitus; Z82.49 Family history of ischemic heart disease and other diseases of the circulatory system; Y92.89 Other specified places as the place of occurrence of the external cause; Z79.52 Long term (current) use of systemic steroids
CPT/HCPCS: 36415; 74177; 80048; 80053; 81001; 83631; 83690; 83735; 85007; 85025; 85027; 86140; 87086; 87493; 87505; 96361; 96374; 96375; 96376; 99285; C9113; J2270; J2405; J2920; J7030; J7512; Q9967; G0378

== ENCOUNTER 2020-11-29 14:10 | Inpatient (IN) | payer OTHER ==
[~2020-11-29] VITALS: Ht 175.3 cm; Wt 121.0 kg
[~2020-11-29 14:10] MED LIST changes: +BALS750C6 PO; +CETI10TA74 PO; +DICY10CA3 PO; +DIPH25CA58 PO; +ESCITALOPRAM OX10 MG PO; +LACT1CAP19 PO
[2020-11-29 16:30] LABS: BASO # 0.1 x10^3/uL (0.0-0.2); BASO % 1 % (0-3); EOS # 0.5 x10^3/uL (0.0-0.7); EOS % 5 % (0-3); HEMATOCRIT 43.8 % (39.0-53.0); HEMOGLOBIN 14.9 g/dL (13.0-17.5); LYMPH # 1.5 x10^3/uL (1.0-4.8); LYMPH % 16 % (24-48); MEAN CORPUSCULAR HEMOGLOBIN 28 pg (25-35); MEAN CORPUSCULAR HGB CONC 34 g/dL (31-37); MEAN CORPUSCULAR VOLUME 84 fL (79-100); MONO # 1.2 x10^3/uL (0.0-1.1); MONO % 13 % (0-9); NEUT % 65 % (31-73); PLATELET COUNT 410 x10^3/uL (140-400); RED BLOOD COUNT 5.25 x10^6/uL (4.30-5.70); RED CELL DISTRIBUTION WIDTH 18.4 % (11.5-14.5); WHITE BLOOD COUNT 9.2 x10^3/uL (4.0-11.0)
[2020-11-29] MEDS ORDERED: MORPHINE SULFATE 4 MG/ML INJ. IV ONE (16:30)
[2020-11-29] MEDS ORDERED: ONDANSETRON PF 4 MG/2 ML VIAL. IVP ONE (16:30)
[2020-11-29] MEDS ORDERED: IV NORMAL SALINE 1000ML BAG 1,000 ML IV ONE ×2 (16:30→20:45)
[2020-11-29] MEDS ORDERED: FAMOTIDINE 20 MG/2 ML VIAL IVP ONE (16:30)
[2020-11-29 16:41] LABS: CALCIUM 8.8 mg/dL (8.5-10.1); CREATININE 1.2 mg/dL (0.7-1.3); GFR 68.1
--- NOTE | 2020-11-29 16:47 | PHYS DOC ---
Past Medical History Past Medical History: Depression, High Cholesterol, Hypertension, [place] Additional Past Medical Histor: CROHN'S Past Surgical History: Other Additional Past Surgical Histo: KNEE SURG 19 Smoking Status: Never Smoker Alcohol Use: Occasionally Drug Use: None General Adult EDM: Chief Complaint: ABDOMINAL PAIN HPI: HPI: Patient is a 35-year-old male with history of Crohn's disease, hypertension, depression, high cholesterol, [place], who presents to the ED today complaining of generalized 10 out of 10 abdominal pain with nausea vomiting and bloody stools. Patient states symptoms have been going on since November when he was taken off prednisone. He states he is right now on Remicade infusions for his Crohn's. Patient states he is scheduled to have a colon resection done but GI was not yet okay with the plant. He states he would like to be admitted at [facility] because his GI doctor comes to this hospital. He states he has tried to manage his symptoms at home with no relief. Patient denies any exacerbating or relieving factors to his symptoms. Review of Systems: Review of Systems: Constitutional: Denies fever or chills. [] Eyes: Denies change in visual acuity. [] HENT: Denies nasal congestion or sore throat. [] Respiratory: Denies cough or shortness of breath. [] Cardiovascular: Denies chest pain or edema. [] GI: Reports abdominal pain, nausea vomiting and bloody stools : Denies dysuria. [] Musculoskeletal: Denies back pain or joint pain. [] Integument: Denies rash. [] Neurologic: Denies headache, focal weakness or sensory changes. [] Psychiatric: Denies depression or anxiety. [] Heart Score: C/O Chest Pain: N/A Risk Factors: Risk Factors: DM, Current or recent (<one month) smoker, HTN, HLP, family history of CAD, obesity. Risk Scores: Score 0 - 3: 2.5% MACE over next 6 weeks - Discharge Home Score 4 - 6: 20.3% MACE over next 6 weeks - Admit for Clinical Observation Score 7 - 10: 72.7% MACE over next 6 weeks - Early Invasive Strategies Current Medications: Current Medications Medications (Trade) Dose Ordered Sig/Jose Martin Start Time Stop Time Status Last Admin Dose Admin Famotidine (Pepcid Vial) 20 mg 1X ONCE 11/29/20 16:30 11/29/20 16:31 DC Morphine Sulfate (Morphine Sulfate) 4 mg 1X ONCE 11/29/20 16:30 11/29/20 16:31 DC Ondansetron HCl (Zofran) 4 mg 1X ONCE 11/29/20 16:30 11/29/20 16:31 DC Sodium Chloride 1,000 ml @ 1,000 mls/hr 1X ONCE 11/29/20 16:30 11/29/20 17:29 Allergies: Allergies: Allergies Coded Allergies Type Severity Reaction Last Updated Verified No Known Medication Allergies Allergy Unknown 08/12/20 Yes acetaminophen Adverse Reaction Intermediate Nausea and Vomiting 07/30/18 Yes oxycodone Adverse Reaction Intermediate Nausea and Vomiting 07/30/18 Yes Physical Exam: PE: Constitutional: Well developed, well nourished, no acute distress, non-toxic appearance. [] HENT: Normocephalic, atraumatic, bilateral external ears normal, oropharynx moist, no oral exudates, nose normal. [] Eyes: PERRLA, EOMI, conjunctiva normal, no discharge. [] Neck: Normal range of motion, no tenderness, supple, no stridor. [] Cardiovascular:Heart rate regular rhythm, no murmur [] Lungs & Thorax: Bilateral breath sounds clear to auscultation [] Abdomen: Bowel sounds normal, soft, generalized tenderness, no masses, no pulsatile masses. [] Skin: Warm, dry, no erythema, no rash. [] Back: No tenderness, no CVA tenderness. [] Extremities: No tenderness, no cyanosis, no clubbing, ROM intact, no edema. [] Neurologic: Alert and oriented X 3, normal motor function, normal sensory function, no focal deficits noted. [] Psychologic: Affect normal, judgement normal, mood normal. [] Current Patient Data: Labs: Laboratory Tests Test 11/29/20 16:15 White Blood Count 9.2 x10^3/uL (4.0-11.0) Red Blood Count 5.25 x10^6/uL (4.30-5.70) Hemoglobin 14.9 g/dL (13.0-17.5) Hematocrit 43.8 % (39.0-53.0) Mean Corpuscular Volume 84 fL (79-100) Mean Corpuscular Hemoglobin 28 pg (25-35) Mean Corpuscular Hemoglobin Concent 34 g/dL (31-37) Red Cell Distribution Width 18.4 % (11.5-14.5) H Platelet Count 410 x10^3/uL (140-400) H Neutrophils (%) (Auto) 65 % (31-73) Lymphocytes (%) (Auto) 16 % (24-48) L Monocytes (%) (Auto) 13 % (0-9) H Eosinophils (%) (Auto) 5 % (0-3) H Basophils (%) (Auto) 1 % (0-3) Neutrophils # (Auto) 6.0 x10^3/uL (1.8-7.7) Lymphocytes # (Auto) 1.5 x10^3/uL (1.0-4.8) Monocytes # (Auto) 1.2 x10^3/uL (0.0-1.1) H Eosinophils # (Auto) 0.5 x10^3/uL (0.0-0.7) Basophils # (Auto) 0.1 x10^3/uL (0.0-0.2) Sodium Level 142 mmol/L (136-145) Potassium Level 4.0 mmol/L (3.5-5.1) Chloride Level 104 mmol/L (98-107) Carbon Dioxide Level 26 mmol/L (21-32) Anion Gap 12 (6-14) Blood Urea Nitrogen 15 mg/dL (8-26) Creatinine 1.2 mg/dL (0.7-1.3) Estimated GFR (Cockcroft-Gault) 68.1 BUN/Creatinine Ratio 13 (6-20) Glucose Level 95 mg/dL (70-99) Calcium Level 8.8 mg/dL (8.5-10.1) Magnesium Level Pending Total Bilirubin Pending Aspartate Amino Transferase (AST) Pending Alanine Aminotransferase (ALT) Pending Alkaline Phosphatase Pending Total Protein Pending Albumin Pending Albumin/Globulin Ratio Pending Lipase Pending Laboratory Tests 11/29/20 16:15 Laboratory Tests 11/29/20 16:15 EKG: EKG: [] Radiology/Procedures: Radiology/Procedures: []PROCEDURE: CT ABD PELV W/ IV CONTRST ONLY CT ABDOMEN+PELVIS W History: Reason: abd pain, bloody stools hx of crohns / Spl. Instructions: IV omni 300 75 mls / History: Technique: After the administration of intravenous contrast, CT imaging was performed of the abdomen and pelvis. Multiplanar images are reviewed. Exposure: One or more of the following individualized dose reduction techniques were utilized for this examination: 1. Automated exposure control 2. Adjustment of the mA and/or kV according to patient size 3. Use of iterative reconstruction technique. Comparison: August 12, 2020 Findings: Lower chest: No consolidation or pleural effusion. Abdomen and pelvis: The liver, spleen, adrenal glands, and pancreas are unremarkable. Contracted gallbladder. No biliary ductal dilatation. Patent portal vein. No hydronephrosis. Punctate nonobstructing intrarenal calculi. Decompressed urinary bladder. Multifocal colonic wall thickening most prominent within the descending colon and sigmoid colon with adjacent inflammatory changes. No pneumatosis. No portal venous gas. No abscess. Prior appendectomy. No evidence of bowel obstruction. Small retroperitoneal and mesenteric lymph nodes, unchanged. No ascites. Tiny fat-containing umbilical hernia. Bones: No pathologic osseous lesions. Impression: 1. Acute colitis most prominent within the descending and sigmoid colon, likely due to known inflammatory bowel disease. Electronically signed by: Noel Holley DO (11/29/2020 5:22 PM) [facility] DICTATED and SIGNED BY: NOEL HOLLEY DO DATE: 11/29/20 [id number] 0 Course & Med Decision Making: Course & Med Decision Making Pertinent Labs and Imaging studies reviewed. (See chart for details) This is a 35-year-old male patient with history of Crohn's presenting today complaining of generalized abdominal pain, nausea vomiting, bloody stools, symptoms of been going on since November when he was taken off prednisone. He is currently on Remicade. CBC with a normal WBC, normal hemoglobin and hematocrit. CMP with no acute findings CT of the abdomen and pelvis was negative for colitis Started on Flagyl and Vishnu Spoke to Dr. Meyer who accepted patient for admission Routine consult placed for GI Dragon Disclaimer: Domo Disclaimer: This electronic medical record was generated, in whole or in part, using a voice recognition dictation system. Departure Departure Impression: Primary Impression: Exacerbation of Crohn's disease Qualified Codes: K50.919 - Crohn's disease, unspecified, with unspecified complications Disposition: ADMITTED INPATIENT Condition: STABLE Referrals: JOANNA NUNEZ MD (PCP) FRANNY MCKEON [employer]ALENT AGENT Nov 29, 2020 16:47
[2020-11-29 16:49] LABS: ALBUMIN 3.9 g/dL (3.4-5.0); TOTAL BILIRUBIN 0.3 mg/dL (0.2-1.0); TOTAL PROTEIN 7.8 g/dL (6.4-8.2)
[2020-11-29] MEDS ORDERED: IOHEXOL 300 MG/ML 100ML VIAL. IV ONE (17:00)
[2020-11-29] MEDS ORDERED: CONTRAST GIVEN. MC PRN (17:00)
--- NOTE | 2020-11-29 17:24 | RAD ---
CT ABDOMEN+PELVIS W History: Reason: abd pain, bloody stools hx of crohns / Spl. Instructions: IV omni 300 75 mls / Histo ry: Technique: After the administration of intravenous contrast, CT imaging was performed of the abdomen and pelvis. Multiplanar images are reviewed. Exposure: One or more of the following individualized dose reduction techniques were utilized for thi s examination: 1. Automated exposure control 2. Adjustment of the mA and/or kV according to patient size 3. Use of iterative reconstruction technique. Comparison: August 12, 2020 Findings: Lower chest: No consolidation or pleural effusion. Abdomen and pelvis: The liver, spleen, adrenal glands, and pancreas are unremarkable. Contracted gall bladder. No biliary ductal dilatation. Patent portal vein. No hydronephrosis. Punctate nonobstructing intrarenal calculi. Decompressed urinary bladder. Multifocal colonic wall thickening most prominent within the descending colon and sigmoid colon with adjacent inflammatory changes. No pneumatosis. No portal venous gas. No abscess. Prior appendectomy. No evidence of bowel obstruction. Small retroperitoneal and mesenteric lymph nodes, unchanged. No asc ites. Tiny fat-containing umbilical hernia. Bones: No pathologic osseous lesions. Impression: 1. Acute colitis most prominent within the descending and sigmoid colon, likely due to known inflamm atory bowel disease. Electronically signed by: Noel Holley DO (11/29/2020 5:22 PM) [facility]
[2020-11-29] MEDS ORDERED: CIPROFLOXACIN 400MG PREMIX 200 ML IV ONE (21:15)
--- NOTE | 2020-11-29 21:25 | NUR ---
ADMISSION NOTE Pt to room 517 via ER cart. Pt ambulatory to bed. Pt given call light and instructed on use, pt gustavo. Pt reports having loose BMs, but that it is chronic for him. Explained to pt, stool sample will need to be obtained after having 3 BMs. Will monitor.
[2020-11-29 21:30] VITALS: BP 129/72
--- NOTE | 2020-11-29 22:20 | PDOC1 ---
History and Physical Date of Service: DOS: DATE: 11/29/20 TIME: 22:12 Chief Complaint: Chief Complain: Acute abdominal pain History of Present Illness: HPI: 35-year-old male with history of Crohn's disease, hypertension, depression, high cholesterol, [place], who presents to the ED today complaining of generalized 10 out of 10 abdominal pain with nausea vomiting and bloody stools. Patient states that he has been on steroids since June in which she was started at 80 mg Solu-Medrol and eventually he was on a prednisone taper and he finally came off his prednisone taper in the first week of November and has not been on steroids since. He states he is right now on Remicade infusions for his Crohn's. Patient states that he was also referred to general surgery for possible colon resection but GI wanted to discuss other treatment options before going through that route. His primary GI specialist is Dr. Richardson. He states he would like to be admitted at [facility] because his GI doctor comes to this hospital. He states he has tried to manage his symptoms at home with no relief. Patient denies any exacerbating or relieving factors to his symptoms. Past Medical/Surgical History: PMH/PSH: Past Medical History: Depression, High Cholesterol, Hypertension, [place], CROHN'S Past Surgical History: Knee surgery Allergies: Allergies: Coded Allergies: No Known Medication Allergies (Verified Allergy, Unknown, 08/12/20) acetaminophen (Verified Adverse Reaction, Intermediate, Nausea and Vomiting, 07/30/18) oxycodone (Verified Adverse Reaction, Intermediate, Nausea and Vomiting, 07/30/18) Family History: Family History: Reviewed with no relevant findings Social History: Social History: Smoking Status: Never Smoker Alcohol Use: Occasionally Drug Use: None Current Medications: Current Medications Current Medications Sodium Chloride 1,000 ml @ 1,000 mls/hr 1X ONCE IV Last administered on 11/29/20at 17:15; Start 11/29/20 at 16:30; Stop 11/29/20 at 17:29; Status DC Famotidine (Pepcid Vial) 20 mg 1X ONCE IVP Last administered on 11/29/20at 17:14; Start 11/29/20 at 16:30; Stop 11/29/20 at 16:31; Status DC Ondansetron HCl (Zofran) 4 mg 1X ONCE IVP Last administered on 11/29/20at 17:14; Start 11/29/20 at 16:30; Stop 11/29/20 at 16:31; Status DC Morphine Sulfate (Morphine Sulfate) 4 mg 1X ONCE IV Last administered on 11/29/20at 17:14; Start 11/29/20 at 16:30; Stop 11/29/20 at 16:31; Status DC Iohexol (Omnipaque 300 Mg/ml) 75 ml 1X ONCE IV Last administered on 11/29/20at 17:01; Start 11/29/20 at 17:00; Stop 11/29/20 at 17:01; Status DC Info (CONTRAST GIVEN -- Rx MONITORING) 1 each PRN DAILY PRN MC SEE COMMENTS; Start 11/29/20 at 17:00; Stop 12/01/20 at 16:59 Ondansetron HCl (Zofran) 4 mg PRN Q8HRS PRN IV NAUSEA/VOMITING; Start 11/29/20 at 20:45; Stop 11/30/20 at 20:44 Morphine Sulfate (Morphine Sulfate) 4 mg PRN Q2HR PRN IV PAIN; Start 11/29/20 at 20:45; Stop 11/30/20 at 20:44 Metronidazole 100 ml @ 100 mls/hr 1X ONCE IV ; Start 11/29/20 at 22:00; Stop 11/29/20 at 22:59 Ciprofloxacin/ Dextrose 200 ml @ 200 mls/hr 1X ONCE IV ; Start 11/29/20 at 21:15; Stop 11/29/20 at 22:14 Sodium Chloride 1,000 ml @ 125 mls/hr 1X ONCE IV ; Start 11/29/20 at 20:45; Stop 11/30/20 at 04:44 Active Scripts Active Culturelle (Lactobacillus Rhamnosus Gg) 1 Each Cap.sprink 1 Cap PO BID 30 Days Prednisone 20 Mg Tablet 40 Mg PO BID 30 Days Lisinopril 5 Mg Tablet 2.5 Mg PO DAILY 90 Days Metoprolol Succinate ( Xl ) (Metoprolol Succinate) 25 Mg Tab.er.24h 12.5 Mg PO DAILY 90 Days Atorvastatin Calcium 20 Mg Tablet 20 Mg PO QHS 90 Days Pantoprazole Sodium (Pantoprazole Sodium) 40 Mg Tablet.dr 40 Mg PO BIDAC 30 Days Tramadol Hcl 50 Mg Tablet 50 Mg PO PRN Q6HRS PRN 6 Days Reported Dicyclomine Hcl 10 Mg Capsule 1 Cap PO PRN QID PRN Benadryl (Diphenhydramine Hcl) 25 Mg Capsule 1 Cap PO QHS 30 Days Zyrtec (Cetirizine Hcl) 10 Mg Tablet 10 Mg PO BID Escitalopram Oxalate 10 Mg Tablet 1 Tab PO HS ROS: Review of Systems Review of System REVIEW OF SYSTEMS: GENERAL: Denies weakness SKIN: No bruising, hair changes or rashes. EYES: No blurred, double or loss of vision. NOSE AND THROAT: No history of nosebleeds, hoarseness or sore throat. HEART: No history of palpitations, chest pain or shortness of breath on exertion. LUNGS: Denies cough, hemoptysis, wheezing or shortness of breath. GASTROINTESTINAL: Denies changes in appetite, nausea, vomiting, diarrhea or constipation. GENITOURINARY: No history of frequency, urgency, hesitancy or nocturia. NEUROLOGIC: Denies history of numbness, tingling, or tremor. PSYCHIATRIC: No history of panic, anxiety or depression. ENDOCRINE: No history of heat or cold intolerance, polyuria or polydipsia. EXTREMITIES: Denies joint pain, pain on walking or stiffness. Physical Exam: Vital Signs: Vital Signs Date Time Temp Pulse Resp B/P (MAP) Pulse Ox O2 Delivery O2 Flow Rate FiO2 11/29/20 21:00 82 110/66 (81) 95 Room Air 11/29/20 16:00 98.2 12 98.2 Physcial Exam: GEN: No apparent distress. Alert and oriented HEENT: Normal cephalic, atraumatic, external auditory canals are patent EYES: Extraocular muscles are intact, pupil are equally round and reactive to light and accommodation MUSCULOSKELETAL: Well developed , well nourished, good range of motion ENDOCRINE: No thyromegaly was palpated LYMPHATICS: No cervical chain or axillary nodes were noted HEMATOPOIETIC: No bruising NECK: Supple, no JVD, no thyromegaly was noted LUNGS: Clear to auscultation in all lung franco without rhonchi or wheezing HEART: RRR, S!, S2 present. Peripheral pulses intact, no obvious murmurs noted ABDOMEN: Soft, nontender. Positive bowel sounds, no organomegaly, normal bowel sounds EXTREMITIES: Without clubbing, cyanosis, or edema. Pedal pulses intact. Negative Homans sign NEUROLOGIC: Normal speech and tone. A&O x 3, moves all extremities, no obvio us focal deficits PSYCHIATRIC: Normal affect, normal mood. Stable SKIN: No ulcerations or rashes, good skin turgor, no jaundice VASCULAR: Good capillary refill, neurovascular bundle appears to be intact Labs: Labs: Laboratory Tests Test 11/29/20 16:15 White Blood Count 9.2 x10^3/uL (4.0-11.0) Red Blood Count 5.25 x10^6/uL (4.30-5.70) Hemoglobin 14.9 g/dL (13.0-17.5) Hematocrit 43.8 % (39.0-53.0) Mean Corpuscular Volume 84 fL (79-100) Mean Corpuscular Hemoglobin 28 pg (25-35) Mean Corpuscular Hemoglobin Concent 34 g/dL (31-37) Red Cell Distribution Width 18.4 % (11.5-14.5) Platelet Count 410 x10^3/uL (140-400) Neutrophils (%) (Auto) 65 % (31-73) Lymphocytes (%) (Auto) 16 % (24-48) Monocytes (%) (Auto) 13 % (0-9) Eosinophils (%) (Auto) 5 % (0-3) Basophils (%) (Auto) 1 % (0-3) Neutrophils # (Auto) 6.0 x10^3/uL (1.8-7.7) Lymphocytes # (Auto) 1.5 x10^3/uL (1.0-4.8) Monocytes # (Auto) 1.2 x10^3/uL (0.0-1.1) Eosinophils # (Auto) 0.5 x10^3/uL (0.0-0.7) Basophils # (Auto) 0.1 x10^3/uL (0.0-0.2) Sodium Level 142 mmol/L (136-145) Potassium Level 4.0 mmol/L (3.5-5.1) Chloride Level 104 mmol/L (98-107) Carbon Dioxide Level 26 mmol/L (21-32) Anion Gap 12 (6-14) Blood Urea Nitrogen 15 mg/dL (8-26) Creatinine 1.2 mg/dL (0.7-1.3) Estimated GFR (Cockcroft-Gault) 68.1 BUN/Creatinine Ratio 13 (6-20) Glucose Level 95 mg/dL (70-99) Calcium Level 8.8 mg/dL (8.5-10.1) Magnesium Level 2.0 mg/dL (1.8-2.4) Total Bilirubin 0.3 mg/dL (0.2-1.0) Aspartate Amino Transf (AST/SGOT) 12 U/L (15-37) Alanine Aminotransferase (ALT/SGPT) 19 U/L (16-63) Alkaline Phosphatase 90 U/L (46-116) Total Protein 7.8 g/dL (6.4-8.2) Albumin 3.9 g/dL (3.4-5.0) Albumin/Globulin Ratio 1.0 (1.0-1.7) Lipase 115 U/L (73-393) Laboratory Tests Test 11/29/20 16:15 White Blood Count 9.2 x10^3/uL (4.0-11.0) Red Blood Count 5.25 x10^6/uL (4.30-5.70) Hemoglobin 14.9 g/dL (13.0-17.5) Hematocrit 43.8 % (39.0-53.0) Mean Corpuscular Volume 84 fL (79-100) Mean Corpuscular Hemoglobin 28 pg (25-35) Mean Corpuscular Hemoglobin Concent 34 g/dL (31-37) Red Cell Distribution Width 18.4 % (11.5-14.5) Platelet Count 410 x10^3/uL (140-400) Neutrophils (%) (Auto) 65 % (31-73) Lymphocytes (%) (Auto) 16 % (24-48) Monocytes (%) (Auto) 13 % (0-9) Eosinophils (%) (Auto) 5 % (0-3) Basophils (%) (Auto) 1 % (0-3) Neutrophils # (Auto) 6.0 x10^3/uL (1.8-7.7) Lymphocytes # (Auto) 1.5 x10^3/uL (1.0-4.8) Monocytes # (Auto) 1.2 x10^3/uL (0.0-1.1) Eosinophils # (Auto) 0.5 x10^3/uL (0.0-0.7) Basophils # (Auto) 0.1 x10^3/uL (0.0-0.2) Sodium Level 142 mmol/L (136-145) Potassium Level 4.0 mmol/L (3.5-5.1) Chloride Level 104 mmol/L (98-107) Carbon Dioxide Level 26 mmol/L (21-32) Anion Gap 12 (6-14) Blood Urea Nitrogen 15 mg/dL (8-26) Creatinine 1.2 mg/dL (0.7-1.3) Estimated GFR (Cockcroft-Gault) 68.1 BUN/Creatinine Ratio 13 (6-20) Glucose Level 95 mg/dL (70-99) Calcium Level 8.8 mg/dL (8.5-10.1) Magnesium Level 2.0 mg/dL (1.8-2.4) Total Bilirubin 0.3 mg/dL (0.2-1.0) Aspartate Amino Transf (AST/SGOT) 12 U/L (15-37) Alanine Aminotransferase (ALT/SGPT) 19 U/L (16-63) Alkaline Phosphatase 90 U/L (46-116) Total Protein 7.8 g/dL (6.4-8.2) Albumin 3.9 g/dL (3.4-5.0) Albumin/Globulin Ratio 1.0 (1.0-1.7) Lipase 115 U/L (73-393) Images: Images PROCEDURE: CT ABD PELV W/ IV CONTRST ONLY Impression: 1. Acute colitis most prominent within the descending and sigmoid colon, likely due to known inflammatory bowel disease. Assessment/Plan Assessment/Plan Acute abdominal pain secondary to Crohn's colitis flare Acute rectal bleeding Morbid obesity Admit to medicine for further management GI consult for Crohn's flare Continue empiric IV antibiotics Trend hemoglobin Continue IV steroids Ambulation for DVT prophylaxis Protonix GI prophylaxis ADA diet Full code Discussed with RN and SW Disposition inpatient management as above Surrogate decision maker is Justifications for Admission Other Justification JASON PAEZ MD Nov 29, 2020 22:20
[2020-11-29] MEDS ORDERED: DEXTROSE 50% 25 GM / 50ML DISP.SYRIN. IV PRN (22:30)
[2020-11-29] MEDS ORDERED: SENNOSIDES 8.6 MG TABLET PO PRN (22:30)
[2020-11-29] MEDS ORDERED: DOCUSATE SODIUM 100 MG CAPSULE. PO PRN (22:30)
[2020-11-29] MEDS ORDERED: ACETAMINOPHEN 325 MG TABLET. PO PRN (22:30)
[2020-11-29 23:00] VITALS: BP 98/54
[2020-11-29] MEDS: ONDANSETRON PF 4 MG/2 ML VIAL. IV PRN (23:01)
[2020-11-29] MEDS: MORPHINE SULFATE 4 MG/ML INJ. IV PRN (23:03)
[2020-11-29] MEDS: methylPREDNISolone SOD SUCC PF 40 MG/ML VIAL. IV SCH (23:04)
[2020-11-29] MEDS ORDERED: COLE1TAB2 PO (23:21)
[2020-11-29] MEDS ORDERED: BALS750C6 PO (23:21)
[2020-11-29] MEDS ORDERED: TEST200V3 IM (23:21)
[2020-11-29] MEDS ORDERED: MERC50TA PO (23:21)
--- NOTE | 2020-11-30 00:15 | NUR ---
NURSING NOTE Spoke with Dr. Meyer regarding pt not wanting to take antibiotics unless given a reason why he needs them, because pt "gets cdiff easily". Dr. Meyer ok with pt not having antibiotics tonight. Home meds reviewed and ordered. Will monitor.
[2020-11-30] MEDS ORDERED: COLESTIPOL HCL 1 GM TABLET PO PRN (00:30)
[2020-11-30] MEDS ORDERED: diphenhydrAMINE HCL 25 MG CAPSULE PO PRN (00:35)
[2020-11-30] MEDS: DICYCLOMINE HCL 10 MG CAPSULE PO PRN ×2 (00:46→04:20)
[2020-11-30] MEDS: MORPHINE SULFATE 4 MG/ML INJ. IV PRN ×6 (00:51→22:04)
[2020-11-30 03:00] VITALS: BP_SYST 57
[2020-11-30] MEDS: ONDANSETRON PF 4 MG/2 ML VIAL. IVP PRN ×3 (04:24→19:14)
[2020-11-30 04:51] LABS: BASO % 0 % (0-3); EOS % 0 % (0-3); LYMPH # 0.6 x10^3/uL (1.0-4.8); LYMPH % 7 % (24-48); MEAN CORPUSCULAR HEMOGLOBIN 28 pg (25-35); MEAN CORPUSCULAR HGB CONC 33 g/dL (31-37); MEAN CORPUSCULAR VOLUME 85 fL (79-100); MONO # 0.1 x10^3/uL (0.0-1.1); MONO % 2 % (0-9); NEUT # 7.7 x10^3/uL (1.8-7.7); NEUT % 91 % (31-73); PLATELET COUNT 349 x10^3/uL (140-400); RED BLOOD COUNT 5.09 x10^6/uL (4.30-5.70); RED CELL DISTRIBUTION WIDTH 18.4 % (11.5-14.5); WHITE BLOOD COUNT 8.5 x10^3/uL (4.0-11.0)
[2020-11-30 05:14] LABS: ALBUMIN 3.5 g/dL (3.4-5.0); ALBUMIN/GLOBULIN RATIO 0.9 (1.0-1.7); CALCIUM 8.5 mg/dL (8.5-10.1); CREATININE 1.2 mg/dL (0.7-1.3); GFR 68.1; POTASSIUM 4.3 mmol/L (3.5-5.1); TOTAL BILIRUBIN 0.4 mg/dL (0.2-1.0); TOTAL PROTEIN 7.2 g/dL (6.4-8.2)
[2020-11-30 05:16] LABS: % BANDS 10 % (0-9); % BASOS 1 % (0-3); % LYMPHS 8 % (24-48); % MONOS 2 % (0-10); % SEGS 79 % (35-66); PLT ESTIMATE ADEQUATE (ADEQUATE)
[2020-11-30] MEDS ORDERED: INFL100V IV (05:37)
[2020-11-30 06:04] LABS: PHOSPHORUS 2.4 mg/dL (2.6-4.7)
[2020-11-30] MEDS: methylPREDNISolone SOD SUCC PF 40 MG/ML VIAL. IV SCH ×3 (07:16→21:59)
[2020-11-30 07:17] VITALS: BP 105/57
[2020-11-30] MEDS: CETIRIZINE HCL 10 MG TABLET. PO SCH ×2 (09:14→21:59)
[2020-11-30] MEDS: LISINOPRIL 5 MG TABLET. PO SCH (09:14)
[2020-11-30] MEDS: LACTOBACILLUS RHAMNOSUS GG 1 CAPSULE. PO SCH ×2 (09:14→21:59)
[2020-11-30] MEDS: PANTOPRAZOLE 40 MG TABLET.DR. PO SCH ×2 (09:14→16:56)
[2020-11-30] MEDS: CITALOPRAM 20 MG TABLET. PO SCH (09:14)
[2020-11-30] MEDS: METOPROLOL SUCC 24HR ER 25 MG TAB.ER.24H. PO SCH (09:17)
--- NOTE | 2020-11-30 10:13 | PDOC2 ---
GI CONSULT Date of Service: DATE: 11/30/20 TIME: 10:12 Reason For Consult: Crohn's exacerbation HPI: HPI: 35 y/o male, well known to us, admitted through ER. H/o IBD (initially thought UC and path here from appendectomy more c/w UC, now thought more likely Crohn's), followed by Laura Kruger PA-C and Dr. Santoyo. Admitted w/ flare in 08/2020. Was on long steroid taper from then until 11/2020 (has been off ~3 weeks). Previously on Entyvio and mercaptopurine, now Remicade (next infusion scheduled for 12/08/20). Symptoms including hematochezia, abd cramping, and diarrhea (15 watery stools in 24 hours) recurred last Sunday. Reports was restarted on balsalazide per phone discussion with our office. Also taking Colestipol and Bentyl which have helped. Colonoscopy 09/2020 w/ Dr. Santoyo showed intermittent ulcers throughout colon w/ normal-appearing rectum and TI. Biopsies from cecum, and distal transverse colon showed quiescent primary IBD. Biopsies from rectum, distal ascending colon, and proximal transverse colon, and ileum showed no diagnostic abnorm ality. Biopsies from proximal ascending colon, descending colon, and sigmoid colon showed patchy mild activity c/w primary IBD. At some point saw surgeon (Dr. Sanford?) and colectomy was discussed. He indicates advice was to observe on Remicade for now. H/o C Diff and GERD on PPI. EGD in 2019 w/ non-specific gastritis (negative for H, pylori). Hepatitis panel negative in 2019. TPMT and IBD profile negative/normal in 2019. PMH: PMH: NSTEMI, HTN, HLD, depression, headache, low testosterone, IBD, C Diff, GERD, COVID vasectomy, left knee surgery, appendectomy, removal of benign jaw tumor, LASIK FH: Family History: CAD Social History: Smoke: No ALCOHOL: rare Drugs: None ROS: GEN: Denies fevers, chills, sweats HEENT: Denies blurred vision, sore throat CV: Denies chest pain RESP: Denies shortness of air, cough GI: Per HPI : Denies hematuria, dysuria ENDO: Denies weight changes NEURO: Denies confusion, dizziness MSK: Denies weakness, joint pain/swelling SKIN: Denies jaundice, pruritus Vitals: Vitals: Vital Signs Date Time Temp Pulse Resp B/P (MAP) Pulse Ox O2 Delivery O2 Flow Rate FiO2 11/30/20 09:17 71 105/57 11/30/20 07:17 98.2 16 97 98.2 11/30/20 07:16 Room Air Labs: Labs: Laboratory Tests Test 11/29/20 16:15 11/29/20 22:46 11/30/20 04:20 White Blood Count 9.2 x10^3/uL (4.0-11.0) 8.5 x10^3/uL (4.0-11.0) Red Blood Count 5.25 x10^6/uL (4.30-5.70) 5.09 x10^6/uL (4.30-5.70) Hemoglobin 14.9 g/dL (13.0-17.5) 14.0 g/dL (13.0-17.5) Hematocrit 43.8 % (39.0-53.0) 43.0 % (39.0-53.0) Mean Corpuscular Volume 84 fL (79-100) 85 fL (79-100) Mean Corpuscular Hemoglobin 28 pg (25-35) 28 pg (25-35) Mean Corpuscular Hemoglobin Concent 34 g/dL (31-37) 33 g/dL (31-37) Red Cell Distribution Width 18.4 % (11.5-14.5) 18.4 % (11.5-14.5) Platelet Count 410 x10^3/uL (140-400) 349 x10^3/uL (140-400) Neutrophils (%) (Auto) 65 % (31-73) 91 % (31-73) Lymphocytes (%) (Auto) 16 % (24-48) 7 % (24-48) Monocytes (%) (Auto) 13 % (0-9) 2 % (0-9) Eosinophils (%) (Auto) 5 % (0-3) 0 % (0-3) Basophils (%) (Auto) 1 % (0-3) 0 % (0-3) Neutrophils # (Auto) 6.0 x10^3/uL (1.8-7.7) 7.7 x10^3/uL (1.8-7.7) Lymphocytes # (Auto) 1.5 x10^3/uL (1.0-4.8) 0.6 x10^3/uL (1.0-4.8) Monocytes # (Auto) 1.2 x10^3/uL (0.0-1.1) 0.1 x10^3/uL (0.0-1.1) Eosinophils # (Auto) 0.5 x10^3/uL (0.0-0.7) 0.0 x10^3/uL (0.0-0.7) Basophils # (Auto) 0.1 x10^3/uL (0.0-0.2) 0.0 x10^3/uL (0.0-0.2) Sodium Level 142 mmol/L (136-145) 139 mmol/L (136-145) Potassium Level 4.0 mmol/L (3.5-5.1) 4.3 mmol/L (3.5-5.1) Chloride Level 104 mmol/L (98-107) 105 mmol/L (98-107) Carbon Dioxide Level 26 mmol/L (21-32) 24 mmol/L (21-32) Anion Gap 12 (6-14) 10 (6-14) Blood Urea Nitrogen 15 mg/dL (8-26) 14 mg/dL (8-26) Creatinine 1.2 mg/dL (0.7-1.3) 1.2 mg/dL (0.7-1.3) Estimated GFR (Cockcroft-Gault) 68.1 68.1 BUN/Creatinine Ratio 13 (6-20) 12 (6-20) Glucose Level 95 mg/dL (70-99) 137 mg/dL (70-99) Calcium Level 8.8 mg/dL (8.5-10.1) 8.5 mg/dL (8.5-10.1) Magnesium Level 2.0 mg/dL (1.8-2.4) 2.0 mg/dL (1.8-2.4) Total Bilirubin 0.3 mg/dL (0.2-1.0) 0.4 mg/dL (0.2-1.0) Aspartate Amino Transf (AST/SGOT) 12 U/L (15-37) 13 U/L (15-37) Alanine Aminotransferase (ALT/SGPT) 19 U/L (16-63) 19 U/L (16-63) Alkaline Phosphatase 90 U/L (46-116) 86 U/L (46-116) Total Protein 7.8 g/dL (6.4-8.2) 7.2 g/dL (6.4-8.2) Albumin 3.9 g/dL (3.4-5.0) 3.5 g/dL (3.4-5.0) Albumin/Globulin Ratio 1.0 (1.0-1.7) 0.9 (1.0-1.7) Lipase 115 U/L (73-393) Erythrocyte Sedimentation Rate 27 (0-15) C-Reactive Protein, Quantitative 20.5 mg/L (0-3.3) Segmented Neutrophils % 79 % (35-66) Band Neutrophils % 10 % (0-9) Lymphocytes % 8 % (24-48) Monocytes % 2 % (0-10) Basophils % 1 % (0-3) Platelet Estimate Adequate (ADEQUATE) Phosphorus Level 2.4 mg/dL (2.6-4.7) Allergies: Coded Allergies: No Known Medication Allergies (Verified Allergy, Unknown, 08/12/20) acetaminophen (Verified Adverse Reaction, Intermediate, Nausea and Vomiting, 07/30/18) oxycodone (Verified Adverse Reaction, Intermediate, Nausea and Vomiting, 07/30/18) Medications: Current Medications Medications (Trade) Dose Ordered Sig/Jose Martin Route PRN Reason Start Time Stop Time Status Last Admin Dose Admin Sodium Chloride 1,000 ml @ 1,000 mls/hr 1X ONCE IV 11/29/20 16:30 11/29/20 17:29 DC 11/29/20 17:15 Famotidine (Pepcid Vial) 20 mg 1X ONCE IVP 11/29/20 16:30 11/29/20 16:31 DC 11/29/20 17:14 Ondansetron HCl (Zofran) 4 mg 1X ONCE IVP 11/29/20 16:30 11/29/20 16:31 DC 11/29/20 17:14 Morphine Sulfate (Morphine Sulfate) 4 mg 1X ONCE IV 11/29/20 16:30 11/29/20 16:31 DC 11/29/20 17:14 Iohexol (Omnipaque 300 Mg/ml) 75 ml 1X ONCE IV 11/29/20 17:00 11/29/20 17:01 DC 11/29/20 17:01 Ondansetron HCl (Zofran) 4 mg PRN Q8HRS PRN IV NAUSEA/VOMITING 11/29/20 20:45 11/30/20 20:44 11/29/20 23:01 Morphine Sulfate (Morphine Sulfate) 4 mg PRN Q2HR PRN IV PAIN 11/29/20 20:45 11/30/20 20:44 11/30/20 07:16 Sodium Chloride 1,000 ml @ 125 mls/hr 1X ONCE IV 11/29/20 20:45 11/30/20 04:44 DC 11/29/20 23:12 Methylprednisolone Sodium Succinate (SOLU-Medrol 40MG VIAL) 40 mg Q8HRS IV 11/29/20 22:30 11/30/20 07:16 Ondansetron HCl (Zofran) 4 mg PRN Q6HRS PRN IVP NAUSEA/VOMITING 11/29/20 22:30 11/30/20 04:24 Acetaminophen (Tylenol) 650 mg PRN Q4HRS PRN PO TEMP OVER 100.4F OR MILD PAIN 11/29/20 22:30 11/30/20 04:27 Cetirizine HCl (ZyrTEC) 10 mg BID PO 11/30/20 09:00 11/30/20 09:14 Dicyclomine HCl (Bentyl) 10 mg PRN QID PRN PO ABDOMINAL CRAMPS 11/30/20 00:30 11/30/20 04:20 Diphenhydramine HCl (Benadryl) 25 mg PRN QHS PRN PO ITCHING 11/30/20 00:35 11/30/20 00:46 Lactobacillus Rhamnosus (Culturelle) 1 cap BID PO 11/30/20 09:00 11/30/20 09:14 Lisinopril (Prinivil) 2.5 mg DAILY PO 11/30/20 09:00 11/30/20 09:14 Metoprolol Succinate (Toprol Xl) 12.5 mg DAILY PO 11/30/20 09:00 11/30/20 09:17 Pantoprazole Sodium (Protonix) 40 mg BIDAC PO 11/30/20 07:30 11/30/20 09:14 Citalopram Hydrobromide (CeleXA) 20 mg DAILY PO 11/30/20 09:00 11/30/20 09:14 Imaging: Imaging: CT A/P 11/29 Impression: 1. Acute colitis most prominent within the descending and sigmoid colon, likely due to known inflammatory bowel disease. PE: GEN: NAD HEENT: Atraumatic, PERRL LUNGS: CTAB HEART: RRR ABD: NABS, S/ND/NT EXTREMITY: No edema SKIN: No rashes, no jaundice NEURO/PSYCH: A & O 3 A/P: A/P: IBD - likely Crohn's - on Remicade, recently finished long steroid taper Diarrhea, hematochezia, abd cramping - colitis in descending and sigmoid on CT, CRP 20.5 GERD CRC screen - UTD (09/2020) H/o C Diff (recurrent) -- Already started on IV steroids - he declined atbx - agree. Check C Diff for completeness. Supportive care. FER ROSENBERG Nov 30, 2020 10:13
[2020-11-30 11:00] VITALS: BP 105/61
[2020-11-30] MEDS: ONDANSETRON PF 4 MG/2 ML VIAL. IV PRN (11:28)
--- NOTE | 2020-11-30 14:18 | NUR ---
SS following for discharge planning. SS reviewed pt chart and discussed with pt RN. Pt is from home with spouse and is currently on room air. GI consulted. SS will continue to follow for discharge planning.
[2020-11-30] MEDS: azaTHIOprine 50 MG TABLET PO SCH (14:27)
[2020-11-30 15:00] VITALS: BP 112/56
--- NOTE | 2020-11-30 15:15 | PDOC ---
[employer] PROGRESS NOTE Date of Service DOS: DATE: 11/30/20 TIME: 15:15 Chief Complaint Chief Complaint Acute abdominal pain secondary to Crohn's colitis flare Acute rectal bleeding obesity, BMI 39 History of Present Illness History of Present Illness Admit to medicine for further management GI consult for Crohn's flare Continue empiric IV antibiotics Trend hemoglobin Continue IV steroids Ambulation for DVT prophylaxis Protonix GI prophylaxis ADA diet Full code Discussed with RN and SW Disposition inpatient management as above Surrogate decision maker is Vitals/I&O Vitals/I&O: Vital Signs Date Time Temp Pulse Resp B/P (MAP) Pulse Ox O2 Delivery O2 Flow Rate FiO2 11/30/20 11:00 98.6 66 18 105/61 (76) 93 98.6 11/30/20 07:16 Room Air I & O 11/29/20 11/29/20 11/30/20 15:00 23:00 07:00 Intake Total 1000 ml Output Total 1 ml Balance 1000 ml -1 ml Physical Exam General: Alert, Cooperative, mild distress Heart: Normal S1 Lungs: Clear Abdomen: Normal bowel sounds Extremities: No clubbing Skin: No rashes, No breakdown Labs Labs: Laboratory Tests Test 11/29/20 16:15 11/29/20 22:46 11/30/20 04:20 White Blood Count 9.2 x10^3/uL (4.0-11.0) 8.5 x10^3/uL (4.0-11.0) Red Blood Count 5.25 x10^6/uL (4.30-5.70) 5.09 x10^6/uL (4.30-5.70) Hemoglobin 14.9 g/dL (13.0-17.5) 14.0 g/dL (13.0-17.5) Hematocrit 43.8 % (39.0-53.0) 43.0 % (39.0-53.0) Mean Corpuscular Volume 84 fL (79-100) 85 fL (79-100) Mean Corpuscular Hemoglobin 28 pg (25-35) 28 pg (25-35) Mean Corpuscular Hemoglobin Concent 34 g/dL (31-37) 33 g/dL (31-37) Red Cell Distribution Width 18.4 % (11.5-14.5) 18.4 % (11.5-14.5) Platelet Count 410 x10^3/uL (140-400) 349 x10^3/uL (140-400) Neutrophils (%) (Auto) 65 % (31-73) 91 % (31-73) Lymphocytes (%) (Auto) 16 % (24-48) 7 % (24-48) Monocytes (%) (Auto) 13 % (0-9) 2 % (0-9) Eosinophils (%) (Auto) 5 % (0-3) 0 % (0-3) Basophils (%) (Auto) 1 % (0-3) 0 % (0-3) Neutrophils # (Auto) 6.0 x10^3/uL (1.8-7.7) 7.7 x10^3/uL (1.8-7.7) Lymphocytes # (Auto) 1.5 x10^3/uL (1.0-4.8) 0.6 x10^3/uL (1.0-4.8) Monocytes # (Auto) 1.2 x10^3/uL (0.0-1.1) 0.1 x10^3/uL (0.0-1.1) Eosinophils # (Auto) 0.5 x10^3/uL (0.0-0.7) 0.0 x10^3/uL (0.0-0.7) Basophils # (Auto) 0.1 x10^3/uL (0.0-0.2) 0.0 x10^3/uL (0.0-0.2) Sodium Level 142 mmol/L (136-145) 139 mmol/L (136-145) Potassium Level 4.0 mmol/L (3.5-5.1) 4.3 mmol/L (3.5-5.1) Chloride Level 104 mmol/L (98-107) 105 mmol/L (98-107) Carbon Dioxide Level 26 mmol/L (21-32) 24 mmol/L (21-32) Anion Gap 12 (6-14) 10 (6-14) Blood Urea Nitrogen 15 mg/dL (8-26) 14 mg/dL (8-26) Creatinine 1.2 mg/dL (0.7-1.3) 1.2 mg/dL (0.7-1.3) Estimated GFR (Cockcroft-Gault) 68.1 68.1 BUN/Creatinine Ratio 13 (6-20) 12 (6-20) Glucose Level 95 mg/dL (70-99) 137 mg/dL (70-99) Calcium Level 8.8 mg/dL (8.5-10.1) 8.5 mg/dL (8.5-10.1) Magnesium Level 2.0 mg/dL (1.8-2.4) 2.0 mg/dL (1.8-2.4) Total Bilirubin 0.3 mg/dL (0.2-1.0) 0.4 mg/dL (0.2-1.0) Aspartate Amino Transf (AST/SGOT) 12 U/L (15-37) 13 U/L (15-37) Alanine Aminotransferase (ALT/SGPT) 19 U/L (16-63) 19 U/L (16-63) Alkaline Phosphatase 90 U/L (46-116) 86 U/L (46-116) Total Protein 7.8 g/dL (6.4-8.2) 7.2 g/dL (6.4-8.2) Albumin 3.9 g/dL (3.4-5.0) 3.5 g/dL (3.4-5.0) Albumin/Globulin Ratio 1.0 (1.0-1.7) 0.9 (1.0-1.7) Lipase 115 U/L (73-393) Erythrocyte Sedimentation Rate 27 (0-15) C-Reactive Protein, Quantitative 20.5 mg/L (0-3.3) Segmented Neutrophils % 79 % (35-66) Band Neutrophils % 10 % (0-9) Lymphocytes % 8 % (24-48) Monocytes % 2 % (0-10) Basophils % 1 % (0-3) Platelet Estimate Adequate (ADEQUATE) Phosphorus Level 2.4 mg/dL (2.6-4.7) Review of Systems Review of Systems: nausea, pain Comment Review of Relevant I have reviewed the following items adis (where applicable) has been applied. Medications: Current Medications Medications (Trade) Dose Ordered Sig/Jose Martin Route PRN Reason Start Time Stop Time Status Last Admin Dose Admin Sodium Chloride 1,000 ml @ 1,000 mls/hr 1X ONCE IV 11/29/20 16:30 11/29/20 17:29 DC 11/29/20 17:15 Famotidine (Pepcid Vial) 20 mg 1X ONCE IVP 11/29/20 16:30 11/29/20 16:31 DC 11/29/20 17:14 Ondansetron HCl (Zofran) 4 mg 1X ONCE IVP 11/29/20 16:30 11/29/20 16:31 DC 11/29/20 17:14 Morphine Sulfate (Morphine Sulfate) 4 mg 1X ONCE IV 11/29/20 16:30 11/29/20 16:31 DC 11/29/20 17:14 Iohexol (Omnipaque 300 Mg/ml) 75 ml 1X ONCE IV 11/29/20 17:00 11/29/20 17:01 DC 11/29/20 17:01 Ondansetron HCl (Zofran) 4 mg PRN Q8HRS PRN IV NAUSEA/VOMITING 11/29/20 20:45 11/30/20 20:44 11/30/20 11:28 Morphine Sulfate (Morphine Sulfate) 4 mg PRN Q2HR PRN IV PAIN 11/29/20 20:45 11/30/20 20:44 11/30/20 11:27 Sodium Chloride 1,000 ml @ 125 mls/hr 1X ONCE IV 11/29/20 20:45 11/30/20 04:44 DC 11/29/20 23:12 Methylprednisolone Sodium Succinate (SOLU-Medrol 40MG VIAL) 40 mg Q8HRS IV 11/29/20 22:30 11/30/20 14:27 Ondansetron HCl (Zofran) 4 mg PRN Q6HRS PRN IVP NAUSEA/VOMITING 11/29/20 22:30 11/30/20 04:24 Acetaminophen (Tylenol) 650 mg PRN Q4HRS PRN PO TEMP OVER 100.4F OR MILD PAIN 11/29/20 22:30 11/30/20 04:27 Cetirizine HCl (ZyrTEC) 10 mg BID PO 11/30/20 09:00 11/30/20 09:14 Dicyclomine HCl (Bentyl) 10 mg PRN QID PRN PO ABDOMINAL CRAMPS 11/30/20 00:30 11/30/20 04:20 Diphenhydramine HCl (Benadryl) 25 mg PRN QHS PRN PO ITCHING 11/30/20 00:35 11/30/20 00:46 Lactobacillus Rhamnosus (Culturelle) 1 cap BID PO 11/30/20 09:00 11/30/20 09:14 Lisinopril (Prinivil) 2.5 mg DAILY PO 11/30/20 09:00 11/30/20 09:14 Metoprolol Succinate (Toprol Xl) 12.5 mg DAILY PO 11/30/20 09:00 11/30/20 09:17 Pantoprazole Sodium (Protonix) 40 mg BIDAC PO 11/30/20 07:30 11/30/20 09:14 Citalopram Hydrobromide (CeleXA) 20 mg DAILY PO 11/30/20 09:00 11/30/20 09:14 Azathioprine (Imuran) 100 mg DAILY PO 11/30/20 13:30 11/30/20 14:27 Justifications for Admission Abdominal Pain Indications Is patient in severe pain?: Yes Justification for admission: Patient has severe pain that requires (parenteral analgesic-please state analgesics and route) at least every 4 hours necessitating inpatient level of care. Is NPO status required?: Yes Justification for admission: Patient may require to be NPO for greater 24hours making it medically necessary to manage patient as inpatient. Other Justification ELVIA LAI MD Nov 30, 2020 15:15
[2020-11-30 19:00] VITALS: BP 142/73
[2020-11-30] MEDS ORDERED: ATORVASTATIN CALCIUM 20 MG TABLET PO SCH (21:00)
[2020-11-30 23:00] VITALS: BP 104/62
[2020-12-01 03:00] VITALS: BP 112/66
[2020-12-01] MEDS: methylPREDNISolone SOD SUCC PF 40 MG/ML VIAL. IV SCH (05:45)
[2020-12-01 07:00] VITALS: BP 117/66
[2020-12-01] MEDS: LISINOPRIL 5 MG TABLET. PO SCH (09:27)
[2020-12-01] MEDS: LACTOBACILLUS RHAMNOSUS GG 1 CAPSULE. PO SCH (09:27)
[2020-12-01] MEDS: CETIRIZINE HCL 10 MG TABLET. PO SCH (09:27)
[2020-12-01] MEDS: METOPROLOL SUCC 24HR ER 25 MG TAB.ER.24H. PO SCH (09:28)
[2020-12-01] MEDS: CITALOPRAM 20 MG TABLET. PO SCH (09:28)
[2020-12-01] MEDS: PANTOPRAZOLE 40 MG TABLET.DR. PO SCH (09:28)
--- NOTE | 2020-12-01 09:45 | PDOC ---
G I PROGRESS NOTE Subjective Says feels great. Formed, non-bloody stool. Wants to go home. Physical Exam Lungs clear anteriorly. RRR Abdomen soft, not tender nor distended. Review of Relevant I have reviewed the following items adis (where applicable) has been applied. Labs Laboratory Tests Test 11/29/20 16:15 11/29/20 22:46 11/30/20 04:20 12/01/20 08:25 White Blood Count 9.2 x10^3/uL (4.0-11.0) 8.5 x10^3/uL (4.0-11.0) Red Blood Count 5.25 x10^6/uL (4.30-5.70) 5.09 x10^6/uL (4.30-5.70) Hemoglobin 14.9 g/dL (13.0-17.5) 14.0 g/dL (13.0-17.5) Hematocrit 43.8 % (39.0-53.0) 43.0 % (39.0-53.0) Mean Corpuscular Volume 84 fL (79-100) 85 fL (79-100) Mean Corpuscular Hemoglobin 28 pg (25-35) 28 pg (25-35) Mean Corpuscular Hemoglobin Concent 34 g/dL (31-37) 33 g/dL (31-37) Red Cell Distribution Width 18.4 % (11.5-14.5) 18.4 % (11.5-14.5) Platelet Count 410 x10^3/uL (140-400) 349 x10^3/uL (140-400) Neutrophils (%) (Auto) 65 % (31-73) 91 % (31-73) Lymphocytes (%) (Auto) 16 % (24-48) 7 % (24-48) Monocytes (%) (Auto) 13 % (0-9) 2 % (0-9) Eosinophils (%) (Auto) 5 % (0-3) 0 % (0-3) Basophils (%) (Auto) 1 % (0-3) 0 % (0-3) Neutrophils # (Auto) 6.0 x10^3/uL (1.8-7.7) 7.7 x10^3/uL (1.8-7.7) Lymphocytes # (Auto) 1.5 x10^3/uL (1.0-4.8) 0.6 x10^3/uL (1.0-4.8) Monocytes # (Auto) 1.2 x10^3/uL (0.0-1.1) 0.1 x10^3/uL (0.0-1.1) Eosinophils # (Auto) 0.5 x10^3/uL (0.0-0.7) 0.0 x10^3/uL (0.0-0.7) Basophils # (Auto) 0.1 x10^3/uL (0.0-0.2) 0.0 x10^3/uL (0.0-0.2) Sodium Level 142 mmol/L (136-145) 139 mmol/L (136-145) Potassium Level 4.0 mmol/L (3.5-5.1) 4.3 mmol/L (3.5-5.1) Chloride Level 104 mmol/L (98-107) 105 mmol/L (98-107) Carbon Dioxide Level 26 mmol/L (21-32) 24 mmol/L (21-32) Anion Gap 12 (6-14) 10 (6-14) Blood Urea Nitrogen 15 mg/dL (8-26) 14 mg/dL (8-26) Creatinine 1.2 mg/dL (0.7-1.3) 1.2 mg/dL (0.7-1.3) Estimated GFR (Cockcroft-Gault) 68.1 68.1 BUN/Creatinine Ratio 13 (6-20) 12 (6-20) Glucose Level 95 mg/dL (70-99) 137 mg/dL (70-99) Calcium Level 8.8 mg/dL (8.5-10.1) 8.5 mg/dL (8.5-10.1) Magnesium Level 2.0 mg/dL (1.8-2.4) 2.0 mg/dL (1.8-2.4) Total Bilirubin 0.3 mg/dL (0.2-1.0) 0.4 mg/dL (0.2-1.0) Aspartate Amino Transf (AST/SGOT) 12 U/L (15-37) 13 U/L (15-37) Alanine Aminotransferase (ALT/SGPT) 19 U/L (16-63) 19 U/L (16-63) Alkaline Phosphatase 90 U/L (46-116) 86 U/L (46-116) Total Protein 7.8 g/dL (6.4-8.2) 7.2 g/dL (6.4-8.2) Albumin 3.9 g/dL (3.4-5.0) 3.5 g/dL (3.4-5.0) Albumin/Globulin Ratio 1.0 (1.0-1.7) 0.9 (1.0-1.7) Lipase 115 U/L (73-393) Erythrocyte Sedimentation Rate 27 (0-15) C-Reactive Protein, Quantitative 20.5 mg/L (0-3.3) 10.3 mg/L (0-3.3) Segmented Neutrophils % 79 % (35-66) Band Neutrophils % 10 % (0-9) Lymphocytes % 8 % (24-48) Monocytes % 2 % (0-10) Basophils % 1 % (0-3) Platelet Estimate Adequate (ADEQUATE) Phosphorus Level 2.4 mg/dL (2.6-4.7) Laboratory Tests Test 12/01/20 08:25 C-Reactive Protein, Quantitative 10.3 mg/L (0-3.3) Vitals/I & O Vital Sign - Last 24 Hours 11/30/20 11/30/20 11/30/20 11/30/20 11:00 15:00 19:00 19:14 Temp 98.6 98.5 97.6 98.6 98.5 97.6 Pulse 66 67 94 Resp 18 18 20 16 B/P (MAP) 105/61 (76) 112/56 (74) 142/73 (96) Pulse Ox 93 98 93 O2 Delivery Room Air Room Air Room Air 11/30/20 11/30/20 11/30/20 11/30/20 19:15 19:40 22:04 22:30 Resp 16 17 15 O2 Delivery Room Air Room Air Room Air Room Air 11/30/20 12/01/20 12/01/20 12/01/20 23:00 03:00 09:27 09:28 Temp 97.8 97.8 97.8 97.8 Pulse 85 79 79 79 Resp 20 20 B/P (MAP) 104/62 (76) 112/66 (81) 112/66 112/66 Pulse Ox 95 94 O2 Delivery Room Air Room Air Intake and Output 11/30/20 11/30/20 12/01/20 15:00 23:00 07:00 Intake Total 1500 ml 300 ml 460 ml Balance 1500 ml 300 ml 460 ml Assessment Crohn's, much improved. Seems exquisitely sensitive to steroids. Plan of Care Note OK with me to go. Would send out on 40mg prednisone daily; has infusion appointment the . Stay at 40 until seen. Continue the 6-MP at home. Justicifation of Admission Dx: Justifications for Admission: Justification of Admission Dx: Yes FABIO ONEILL MD Dec 01, 2020 09:45
[2020-12-01 11:00] VITALS: BP 144/70
[2020-12-01] MEDS: azaTHIOprine 50 MG TABLET PO SCH (12:01)
[2020-12-01] MEDS ORDERED: PRED-220 PO (12:31)
--- NOTE | 2020-12-01 12:36 | PDOC3 ---
Discharge Summary Visit Information Date of Admission: Nov 29, 2020 Date of Discharge: Dec 01, 2020 Final Diagnosis Acute abdominal pain secondary to acute Crohn's colitis flare Acute rectal bleeding obesity, BMI 39 CAD, htn low T Brief Hospital Course Allergies Allergies Coded Allergies Type Severity Reaction Last Updated Verified No Known Medication Allergies Allergy Unknown 08/12/20 Yes acetaminophen Adverse Reaction Intermediate Nausea and Vomiting 07/30/18 Yes oxycodone Adverse Reaction Intermediate Nausea and Vomiting 07/30/18 Yes Vital Signs Vital Signs Date Time Temp Pulse Resp B/P (MAP) Pulse Ox O2 Delivery O2 Flow Rate FiO2 12/01/20 09:28 79 112/66 12/01/20 07:00 97.9 16 96 Room Air 97.9 Lab Results Laboratory Tests Test 11/29/20 16:15 11/29/20 22:46 11/30/20 04:20 12/01/20 08:25 White Blood Count 9.2 x10^3/uL (4.0-11.0) 8.5 x10^3/uL (4.0-11.0) Red Blood Count 5.25 x10^6/uL (4.30-5.70) 5.09 x10^6/uL (4.30-5.70) Hemoglobin 14.9 g/dL (13.0-17.5) 14.0 g/dL (13.0-17.5) Hematocrit 43.8 % (39.0-53.0) 43.0 % (39.0-53.0) Mean Corpuscular Volume 84 fL (79-100) 85 fL (79-100) Mean Corpuscular Hemoglobin 28 pg (25-35) 28 pg (25-35) Mean Corpuscular Hemoglobin Concent 34 g/dL (31-37) 33 g/dL (31-37) Red Cell Distribution Width 18.4 % (11.5-14.5) 18.4 % (11.5-14.5) Platelet Count 410 x10^3/uL (140-400) 349 x10^3/uL (140-400) Neutrophils (%) (Auto) 65 % (31-73) 91 % (31-73) Lymphocytes (%) (Auto) 16 % (24-48) 7 % (24-48) Monocytes (%) (Auto) 13 % (0-9) 2 % (0-9) Eosinophils (%) (Auto) 5 % (0-3) 0 % (0-3) Basophils (%) (Auto) 1 % (0-3) 0 % (0-3) Neutrophils # (Auto) 6.0 x10^3/uL (1.8-7.7) 7.7 x10^3/uL (1.8-7.7) Lymphocytes # (Auto) 1.5 x10^3/uL (1.0-4.8) 0.6 x10^3/uL (1.0-4.8) Monocytes # (Auto) 1.2 x10^3/uL (0.0-1.1) 0.1 x10^3/uL (0.0-1.1) Eosinophils # (Auto) 0.5 x10^3/uL (0.0-0.7) 0.0 x10^3/uL (0.0-0.7) Basophils # (Auto) 0.1 x10^3/uL (0.0-0.2) 0.0 x10^3/uL (0.0-0.2) Sodium Level 142 mmol/L (136-145) 139 mmol/L (136-145) Potassium Level 4.0 mmol/L (3.5-5.1) 4.3 mmol/L (3.5-5.1) Chloride Level 104 mmol/L (98-107) 105 mmol/L (98-107) Carbon Dioxide Level 26 mmol/L (21-32) 24 mmol/L (21-32) Anion Gap 12 (6-14) 10 (6-14) Blood Urea Nitrogen 15 mg/dL (8-26) 14 mg/dL (8-26) Creatinine 1.2 mg/dL (0.7-1.3) 1.2 mg/dL (0.7-1.3) Estimated GFR (Cockcroft-Gault) 68.1 68.1 BUN/Creatinine Ratio 13 (6-20) 12 (6-20) Glucose Level 95 mg/dL (70-99) 137 mg/dL (70-99) Calcium Level 8.8 mg/dL (8.5-10.1) 8.5 mg/dL (8.5-10.1) Magnesium Level 2.0 mg/dL (1.8-2.4) 2.0 mg/dL (1.8-2.4) Total Bilirubin 0.3 mg/dL (0.2-1.0) 0.4 mg/dL (0.2-1.0) Aspartate Amino Transf (AST/SGOT) 12 U/L (15-37) 13 U/L (15-37) Alanine Aminotransferase (ALT/SGPT) 19 U/L (16-63) 19 U/L (16-63) Alkaline Phosphatase 90 U/L (46-116) 86 U/L (46-116) Total Protein 7.8 g/dL (6.4-8.2) 7.2 g/dL (6.4-8.2) Albumin 3.9 g/dL (3.4-5.0) 3.5 g/dL (3.4-5.0) Albumin/Globulin Ratio 1.0 (1.0-1.7) 0.9 (1.0-1.7) Lipase 115 U/L (73-393) Erythrocyte Sedimentation Rate 27 (0-15) C-Reactive Protein, Quantitative 20.5 mg/L (0-3.3) 10.3 mg/L (0-3.3) Segmented Neutrophils % 79 % (35-66) Band Neutrophils % 10 % (0-9) Lymphocytes % 8 % (24-48) Monocytes % 2 % (0-10) Basophils % 1 % (0-3) Platelet Estimate Adequate (ADEQUATE) Phosphorus Level 2.4 mg/dL (2.6-4.7) Laboratory Tests Test 12/01/20 08:25 C-Reactive Protein, Quantitative 10.3 mg/L (0-3.3) Brief Hospital Course Mr. Curry is a 35 old w. mixed hx of IBD, with Crohn's), followed by Dr. Santoyo. ON mercaptopurine, and Remicade (next infusion 12/08/20). admit for pain and bloody diarrhea, steroids started and sx improved quickly DC on PO prednisone, resume other priro, he seems very responsive to prednisone bursts Discharge Information Condition at Discharge: Improved Follow Up: Weeks Disposition/Orders: D/C to Home Scheduled Atorvastatin Calcium (Atorvastatin Calcium) 20 Mg Tablet, 20 MG PO QHS for CAD for 90 Days, #90 Ref 3 Prescribed by: ISABELLA LACKEY MD on 01/09/19 1435 Last Action: Continued on 11/30/2024 by DARIN FOX Balsalazide Disodium (Colazal) 750 Mg Capsule, 3 CAP PO TID for GI for 30 Days, #270 Ref 0 (Reported) Entered as Reported by: DARIN FOX on 11/29/202320 Last Action: New Order on 11/29/202320 by DARIN FOX Cetirizine Hcl (Zyrtec) 10 Mg Tablet, 10 MG PO BID for allergy, (Reported) Entered as Reported by: ELIZABETH ANNE on 08/13/20734 Last Action: Continued on 11/30/2024 by DARIN FOX Diphenhydramine Hcl (Benadryl) 25 Mg Capsule, 1 CAP PO QHS for sleep for 30 Days, #30 Ref 0 (Reported) Entered as Reported by: ELIZABETH ANNE on 08/13/20734 Last Action: Continued on 11/30/2024 by ADRIN FOX Escitalopram Oxalate (Escitalopram Oxalate) 10 Mg Tablet, 1 TAB PO HS for depression, #30 Ref 3 (Reported) Entered as Reported by: ELIZABETH ANNE on 08/12/201944 Last Action: Converted on 11/30/2024 by DARIN FOX Infliximab (Remicade) 100 Mg Vial, 100 MG IV Q4WK for chron's, (Reported) Entered as Reported by: DARIN FOX on 11/30/20536 Last Action: New Order on 11/30/20536 by DARIN FOX Lactobacillus Rhamnosus Gg (Culturelle) 1 Each Cap.sprink, 1 CAP PO BID for Colitis for 30 Days, #60 Prescribed by: ISABELLA LACKEY MD on 08/18/20 1217 Last Action: Continued on 11/30/2024 by DARIN FOX Lisinopril (Lisinopril) 5 Mg Tablet, 2.5 MG PO DAILY for HTN for 90 Days, #45 Ref 3 Prescribed by: ISABELLA LACKEY MD on 01/09/191434 Last Action: Continued on 11/30/2024 by DARIN FOX Mercaptopurine (Mercaptopurine) 50 Mg Tablet, 50 MG PO DAILY for GI, (Reported) Entered as Reported by: DARIN FOX on 11/29/202320 Last Action: New Order on 11/29/202320 by DARIN FOX Metoprolol Succinate (Metoprolol Succinate ( Xl )) 25 Mg Tab.er.24h, 12.5 MG PO DAILY for CAD for 90 Days, #45 Ref 3 Prescribed by: ISABELLA LACKEY MD on 01/09/191434 Last Action: Continued on 11/30/2024 by DARIN FOX Pantoprazole Sodium (Pantoprazole Sodium ) 40 Mg Tablet.dr, 40 MG PO BIDAC for GERD for 30 Days, #60 Prescribed by: ISABELLA LACKEY MD on 01/07/19 1245 Last Action: Continued on 11/30/2024 by DARIN FOX Prednisone (Prednisone ) 10 Mg Tablet, 4 TAB PO DAILY for crohns for 14 Days, #56 Ref 0 taper slowly by 5mg a day, as directed by your GI doctor Prescribed by: ELVIA LAI on 12/01/20 1231 Testosterone Cypionate (Testosterone Cypionate) 200 Mg/1 Ml Vial, 200 MG IM Q2WKS for low testosterone, (Reported) Entered as Reported by: DARIN FOX on 11/29/202320 Last Action: New Order on 11/29/202320 by DARIN FOX Scheduled PRN Colestipol Hcl (Colestipol Hcl) 1 Gm Tablet, 4 GM PO PRN DAILY PRN for DIARRHEA, (Reported) Entered as Reported by: DARIN FOX on 11/29/202320 Last Action: Continued on 11/30/2024 by DARIN FOX Dicyclomine Hcl (Dicyclomine Hcl) 10 Mg Capsule, 1 CAP PO PRN QID PRN for ABDOMINAL CRAMPS, #90 Ref 11 (Reported) Entered as Reported by: FIDELINACIAnn ANNE on 08/13/20 0735 Last Action: Continued on 11/30/2024 by DARIN FOX Patient Instructions Patient Instructions 38 min seen face to face Justicifation of Admission Dx: Justifications for Admission: Justification of Admission Dx: Yes ELVIA LAI MD Dec 01, 2020 12:35
--- NOTE | 2020-12-01 13:11 | NUR ---
SS following up with discharge planning. SS reviewed pt chart and discussed with pt RN. Pt is currently on room air. Discharge order on the chart for home with self care.
--- NOTE | 2020-12-01 14:36 | NUR ---
patient discharged home independently. meds and follow up reviewed. IV removed intact. pt stable upon dc. pt escorted to ER exit and left in personal vehicle.
== END 2020-12-01 14:00 | disposition home or self-care (01) | DRG 386 ==
LOC: ER 14:10 → 5 NORTH 19:25
PROVIDERS: ADMIT Internal Medicine; ATTEND Internal Medicine
DX: K50.10 Crohn's disease of large intestine without complications (principal); K62.5 Hemorrhage of anus and rectum; I25.2 Old myocardial infarction; E66.01 Morbid (severe) obesity due to excess calories; Z68.39 Body mass index [BMI] 39.0-39.9, adult; E78.00 Pure hypercholesterolemia, unspecified; E78.5 Hyperlipidemia, unspecified; F32.9 Major depressive disorder, single episode, unspecified; I10 Essential (primary) hypertension; I25.10 Atherosclerotic heart disease of native coronary artery without angina pectoris; K21.9 Gastro-esophageal reflux disease without esophagitis; Z82.49 Family history of ischemic heart disease and other diseases of the circulatory system; Z88.8 Allergy status to other drugs, medicaments and biological substances
CPT/HCPCS: 36415; 74177; 80053; 83690; 83735; 84100; 85007; 85025; 85651; 86140; 96361; 96374; 96375; J2270; J2405; J2920; J3490; J7030; J7500; Q9967; 99285-25; G0378; Q0163

== ENCOUNTER 2021-08-13 18:49 | Observation (INO) | payer OTHER ==
[~2021-08-13] VITALS: Ht 175.3 cm; Wt 112.0 kg
[~2021-08-13 18:49] MED LIST changes: +COLE1TAB2 PO; +INFL100V IV; -LISI-517 PO; +LISI5TAB15 PO; +MERC50TA PO; +PRED-220 PO; +TEST200V3 IM
[2021-08-13] MEDS ORDERED: ASPIRIN CHEWABLE 81 MG TABLET. PO ONE (19:00)
[2021-08-13] MEDS: NITROGLYCERIN SUBLINGUAL 0.4 MG BOTTLE OF 25. SL PRN (19:03)
--- NOTE | 2021-08-13 19:06 | PHYS DOC ---
Past Medical History Past Medical History: Depression, High Cholesterol, Hypertension, VT Additional Past Medical Histor: CROHN'S Past Surgical History: Appendectomy, Other Additional Past Surgical Histo: KNEE SURG 21, EYE SX Smoking Status: Never Smoker Alcohol Use: None Drug Use: None General Adult EDM: Chief Complaint: CHEST PAIN HPI: HPI: Patient is a 35-year-old male who presents to the emergency department with left-sided chest pain that started 1 hour prior to arrival. He reports that the chest pain is a pressure/tightness and radiates to his left arm. Patient rates his pain 4 out of 10. Is worse with palpation and deep inspiration. He reports that when he takes a deep breath he feels a "catch". Patient denies treatment prior to arrival. No alleviating factors. Patient reports that following the onset of his chest pain he did have a syncopal episode. He is also reporting nausea and shortness of breath. He has a history of Crohn's/colitis, hyperlipidemia, hypertension and a non-STEMI. 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 Review of Systems: Review of Systems: Respiratory: See HPI Cardiovascular: See HPI GI: See HPI Musculoskeletal: See HPI Neurologic: See HPI Heart Score: C/O Chest Pain: Yes HEART Score for Chest Pain: HEART Score for Chest Pain Response (Comments) Value History Moderately Suspicious 1 ECG Nonspecific Repolarizatio 1 Age < 45 0 Risk Factors >3 Risk Factors or Hx CAD 2 Troponin < Normal Limit 0 Total 4 Risk Factors: Risk Factors: DM, Current or recent (<one month) smoker, HTN, HLP, family history of CAD, obesity. Risk Scores: Score 0 - 3: 2.5% MACE over next 6 weeks - Discharge Home Score 4 - 6: 20.3% MACE over next 6 weeks - Admit for Clinical Observation Score 7 - 10: 72.7% MACE over next 6 weeks - Early Invasive Strategies Current Medications: Current Medications Medications (Trade) Dose Ordered Sig/Jose Martin Start Time Stop Time Status Last Admin Dose Admin Aspirin (Aspirin Chewable) 324 mg 1X ONCE 08/13/21 19:00 08/13/21 19:01 Nitroglycerin (Nitrostat) 0.4 mg PRN Q5MIN PRN 08/13/21 19:00 08/14/21 18:59 Allergies: Allergies: Allergies Coded Allergies Type Severity Reaction Last Updated Verified No Known Medication Allergies Allergy Unknown 08/12/20 Yes acetaminophen Adverse Reaction Intermediate Nausea and Vomiting 07/30/18 Yes oxycodone Adverse Reaction Intermediate Nausea and Vomiting 07/30/18 Yes Physical Exam: PE: Constitutional: Well developed, well nourished, no acute distress, non-toxic appearance. [] HENT: Normocephalic, atraumatic, bilateral external ears normal, oropharynx moist, no oral exudates, nose normal. [] Eyes: PERRL, EOMI, conjunctiva normal, no discharge. [] Neck: Normal range of motion, no tenderness, supple, no stridor. [] Cardiovascular:Heart rate tachycardia rhythm, no murmur, L. sided chest wall pain reproducable with palpation just left of sternum [] Lungs & Thorax: Bilateral breath sounds clear to auscultation [] Abdomen: Bowel sounds normal, soft, no tenderness, no masses, no pulsatile masses. [] Skin: Warm, dry, no erythema, no rash. [] Back: Normal ROM Extremities: No tenderness, no cyanosis, no clubbing, ROM intact, no edema. [] Neurologic: Alert and oriented X 3, normal motor function, normal sensory function, no focal deficits noted. [] Psychologic: Affect normal, judgement normal, mood normal. [] Current Patient Data: Labs: Laboratory Tests Test 08/13/21 19:05 White Blood Count 7.9 x10^3/uL Red Blood Count 5.61 x10^6/uL Hemoglobin 15.9 g/dL Hematocrit 48.3 % Mean Corpuscular Volume 86 fL Mean Corpuscular Hemoglobin 28 pg Mean Corpuscular Hemoglobin Concent 33 g/dL Red Cell Distribution Width 15.8 % Platelet Count 278 x10^3/uL Neutrophils (%) (Auto) 75 % Lymphocytes (%) (Auto) 15 % Monocytes (%) (Auto) 9 % Eosinophils (%) (Auto) 1 % Basophils (%) (Auto) 1 % Neutrophils # (Auto) 6.0 x10^3/uL Lymphocytes # (Auto) 1.2 x10^3/uL Monocytes # (Auto) 0.7 x10^3/uL Eosinophils # (Auto) 0.1 x10^3/uL Basophils # (Auto) 0.0 x10^3/uL D-Dimer (Vielka) < 0.27 ug/mlFEU Sodium Level 138 mmol/L Potassium Level 3.3 mmol/L Chloride Level 101 mmol/L Carbon Dioxide Level 23 mmol/L Anion Gap 14 Blood Urea Nitrogen 16 mg/dL Creatinine 1.3 mg/dL Estimated GFR (Cockcroft-Gault) 62.1 BUN/Creatinine Ratio 12 Glucose Level 92 mg/dL Calcium Level 8.9 mg/dL Total Bilirubin 1.3 mg/dL Aspartate Amino Transf (AST/SGOT) 26 U/L Alanine Aminotransferase (ALT/SGPT) 55 U/L Alkaline Phosphatase 90 U/L Troponin I High Sensitivity 7 ng/L Total Protein 8.7 g/dL Albumin 4.2 g/dL Albumin/Globulin Ratio 0.9 Current Medications Medications (Trade) Dose Ordered Sig/Jose Martin Route PRN Reason Start Time Stop Time Status Last Admin Dose Admin Aspirin (Aspirin Chewable) 324 mg 1X ONCE PO 08/13/21 19:00 08/13/21 19:01 DC 08/13/21 19:03 Nitroglycerin (Nitrostat) 0.4 mg PRN Q5MIN PRN SL CP RATING > 1/10 08/13/21 19:00 08/14/21 18:59 08/13/21 19:03 EKG: EKG: [] EKG performed by ER staff at 857 shows sinus tachycardia with a rate of 102, QTC is 453, nonspecific EKG changes, T wave inversions, no STEMI read by Dr. Rascon at 1900 Radiology/Procedures: Radiology/Procedures: []PROCEDURE: PORTABLE CHEST 1V PROCEDURE: XR CHEST 1V.08/13/2021 7:39 PM REASON FOR STUDY: Reason: chest pain / Spl. Instructions: / History: . COMPARISON: None. FINDINGS: No infiltrate or effusion is seen. Heart size appears normal. IMPRESSION: No acute abnormality. Electronically signed by: Judy Sanchez Jr., MD (08/13/2021 7:39 PM) [facility] DICTATED and SIGNED BY: JUDY SANCHEZ Jr, MD DATE: 08/13/21 [id number] 0 Course & Med Decision Making: Course & Med Decision Making Pertinent Labs and Imaging studies reviewed. (See chart for details) Patient presents to the emergency department with left-sided chest pain that started 1 hour prior to arrival that radiates to his left arm. Patient reports that he did have a syncopal episode following his onset of chest pain and is currently complaining of shortness of breath and nausea. Chest pain is reproducible with palpation and deep inspiration. Work-up in the ER consisted of blood work including troponin, EKG and chest x-ray. Patient treated with aspirin and nitroglycerin tablet. CBC unremarkable, ddimer is not elevated, negative troponin. CXR negative. Patients heart score is 4. Patient reports that his cp was relieved with nitro. I discussed patients case with Dr. Patton who agreed to admit the patient under his services for chest pain with cards consultation. I discussed these findings with patient as well as treatment plan and he is agreeable. I discussed with patient code status. He reports that he does not want CPR or to be placed on a ventilator. ER bridge orders placed at 2022. Domo Disclaimer: Domo Disclaimer: This electronic medical record was generated, in whole or in part, using a voice recognition dictation system. Departure Departure Impression: Primary Impression: Chest pain Qualified Codes: R07.9 - Chest pain, unspecified Disposition: ADMITTED INPATIENT Admitting Physician: MIGUEL Condition: GOOD Referrals: JOANNA NUNEZ MD (PCP) TIFFANY RAMEY APRN Aug 13, 2021 19:06
[2021-08-13 19:15] LABS: BASO % 1 % (0-3); EOS # 0.1 x10^3/uL (0.0-0.7); EOS % 1 % (0-3); HEMATOCRIT 48.3 % (39.0-53.0); HEMOGLOBIN 15.9 g/dL (13.0-17.5); LYMPH # 1.2 x10^3/uL (1.0-4.8); LYMPH % 15 % (24-48); MEAN CORPUSCULAR HEMOGLOBIN 28 pg (25-35); MEAN CORPUSCULAR HGB CONC 33 g/dL (31-37); MEAN CORPUSCULAR VOLUME 86 fL (79-100); MONO # 0.7 x10^3/uL (0.0-1.1); MONO % 9 % (0-9); NEUT % 75 % (31-73); PLATELET COUNT 278 x10^3/uL (140-400); RED BLOOD COUNT 5.61 x10^6/uL (4.30-5.70); RED CELL DISTRIBUTION WIDTH 15.8 % (11.5-14.5); WHITE BLOOD COUNT 7.9 x10^3/uL (4.0-11.0)
[2021-08-13 19:24] LABS: CALCIUM 8.9 mg/dL (8.5-10.1); CREATININE 1.3 mg/dL (0.7-1.3); GFR 62.1; POTASSIUM 3.3 mmol/L (3.5-5.1)
[2021-08-13 19:31] LABS: ALBUMIN 4.2 g/dL (3.4-5.0); ALBUMIN/GLOBULIN RATIO 0.9 (1.0-1.7); TOTAL BILIRUBIN 1.3 mg/dL (0.2-1.0); TOTAL PROTEIN 8.7 g/dL (6.4-8.2)
--- NOTE | 2021-08-13 19:42 | RAD ---
PROCEDURE: XR CHEST 1V.08/13/2021 7:39 PM REASON FOR STUDY: Reason: chest pain / Spl. Instructions: / History: . COMPARISON: None. FINDINGS: No infiltrate or effusion is seen. Heart size appears normal. IMPRESSION: No acute abnormality. Electronically signed by: Allen Sanchez Jr., MD (08/13/2021 7:39 PM) [facility]PITALBessy
--- NOTE | 2021-08-13 21:04 | EKG ---
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
[2021-08-13 22:00] VITALS: BP 146/79
[2021-08-13] MEDS ORDERED: DEXT30CA6 PO (22:35)
[2021-08-13] MEDS ORDERED: SPIR25TA PO (22:35)
[2021-08-13] MEDS ORDERED: CARV12.511 PO (22:35)
[2021-08-13] MEDS ORDERED: LOSA25TA PO (22:35)
[2021-08-13] MEDS ORDERED: ALPR0.5T PO (22:35)
[2021-08-13] MEDS ORDERED: diphenhydrAMINE HCL 25 MG CAPSULE PO PRN (22:45)
[2021-08-13] MEDS ORDERED: ALPRAZolam 0.5 MG TABLET PO PRN (22:45)
[2021-08-13] MEDS ORDERED: ZOLPIDEM 5 MG TABLET. PO PRN (23:00)
[2021-08-13] MEDS ORDERED: MORPHINE SULFATE 4 MG/ML INJ. IV PRN (23:00)
[2021-08-13 23:05] VITALS: BP 159/90
[2021-08-13] MEDS: CITALOPRAM 20 MG TABLET. PO SCH (23:32)
[2021-08-14] VITALS (7 sets, daily range): BP systolic 113–177; BP diastolic 58–111
[2021-08-14 06:05] LABS: BASO % 1 % (0-3); EOS # 0.3 x10^3/uL (0.0-0.7); EOS % 5 % (0-3); HEMATOCRIT 46.7 % (39.0-53.0); HEMOGLOBIN 15.1 g/dL (13.0-17.5); LYMPH # 1.4 x10^3/uL (1.0-4.8); LYMPH % 26 % (24-48); MEAN CORPUSCULAR HEMOGLOBIN 28 pg (25-35); MEAN CORPUSCULAR HGB CONC 33 g/dL (31-37); MEAN CORPUSCULAR VOLUME 87 fL (79-100); MONO # 0.7 x10^3/uL (0.0-1.1); MONO % 14 % (0-9); NEUT # 2.9 x10^3/uL (1.8-7.7); NEUT % 54 % (31-73); PLATELET COUNT 238 x10^3/uL (140-400); RED BLOOD COUNT 5.37 x10^6/uL (4.30-5.70); RED CELL DISTRIBUTION WIDTH 15.8 % (11.5-14.5); WHITE BLOOD COUNT 5.4 x10^3/uL (4.0-11.0)
[2021-08-14 06:13] LABS: CALCIUM 8.7 mg/dL (8.5-10.1); CREATININE 1.2 mg/dL (0.7-1.3); GFR 68.1; POTASSIUM 3.8 mmol/L (3.5-5.1)
[2021-08-14 06:14] LABS: CHOLESTEROL/HDL RATIO 3.1
[2021-08-14] MEDS: LOSARTAN POTASSIUM 25 MG TABLET. PO SCH (08:32)
[2021-08-14] MEDS: PANTOPRAZOLE 40 MG TABLET.DR. PO SCH ×2 (08:33→17:35)
[2021-08-14] MEDS: CARVEDILOL 12.5 MG TABLET. PO SCH ×2 (08:33→17:35)
[2021-08-14] MEDS: SPIRONOLACTONE 25 MG TABLET PO SCH (08:33)
[2021-08-14] MEDS: CETIRIZINE HCL 10 MG TABLET. PO SCH ×2 (08:33→20:27)
[2021-08-14] MEDS: MERCAPTOPURINE 50 MG PO SCH (08:37)
[2021-08-14] MEDS ORDERED: ACETAMINOPHEN 325 MG TABLET. PO PRN (09:00)
--- NOTE | 2021-08-14 09:42 | PDOC1 ---
History and Physical Date of Admission Date of Admission DATE: 08/14/21 TIME: 09:40 Source Source: Chart review, Patient History of Present Illness History of Present Illness Mr. Curry is a 35-year-old male admit with chest pain, new left-sided chest pain started suddenly with tightness, 5/10 pain, better this AM. He complains of headache this AM. He reports that the chest pain is a pressure/tightness and radiates to his left arm. Patient rates his pain 4 out of 10. Is worse with palpation and deep inspiration. He reports that when he takes a deep breath he feels a "catch". Patient denies treatment prior to arrival. No alleviating factors. Patient reports that following the onset of his chest pain he did have a syncopal episode. He is also reporting nausea and shortness of breath. 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 Past Medical History Past Medical History Crohn's/colitis, hyperlipidemia, hypertension and CAD. Cardiovascular: No pertinent hx Pulmonary: No pertinent hx CENTRAL NERVOUS SYSTEM: Other GI: Hemorrhoids, Inflam bowel disease Heme/Onc: No pertinent hx Hepatobiliary: No pertinent hx Psych: No pertinent hx Musculoskeletal: low back pain, Other Infectious disease: No pertinent hx Renal/: Other Endocrine: No pertinent hx Past Surgical History Past Surgical History: Appendectomy, Other Family History Family History: Coronary Artery Disease, Heart Disease Social History Smoke: No ALCOHOL: rare Drugs: None Current Problem List Problem List Problems Medical Problems: (1) Chest pain Status: Acute Current Medications Current Medications Current Medications Aspirin (Aspirin Chewable) 324 mg 1X ONCE PO Last administered on 08/13/21at 19:03; Start 08/13/21 at 19:00; Stop 08/13/21 at 19:01; Status DC Nitroglycerin (Nitrostat) 0.4 mg PRN Q5MIN PRN SL CP RATING > 1/10 Last administered on 08/13/21at 19:03; Start 08/13/21 at 19:00; Stop 08/14/21 at 18:59 Alprazolam (Xanax) 0.5 mg PRN Q6HRS PRN PO ANXIETY / AGITATION; Start 08/13/21 at 22:45 Carvedilol (Coreg) 12.5 mg BIDWMEALS PO Last administered on 08/14/21 08:33; Start 08/14/21 at 08:00 Cetirizine HCl (ZyrTEC) 10 mg BID PO Last administered on 08/14/21at 08:33; Start 08/14/21 at 09:00 Diphenhydramine HCl (Benadryl) 25 mg PRN QHS PRN PO INSOMNIA; Start 08/13/21 at 22:45 Losartan Potassium (Cozaar) 25 mg DAILY PO Last administered on 08/14/21at 08:32; Start 08/14/21 at 09:00 Pantoprazole Sodium (Protonix) 40 mg BIDAC PO Last administered on 08/14/21 08:33; Start 08/14/21 at 07:30 Spironolactone (Aldactone) 25 mg DAILY PO Last administered on 08/14/21 08:33; Start 08/14/21 at 09:00 Citalopram Hydrobromide (CeleXA) 40 mg HS PO Last administered on 08/13/21at 23:32; Start 08/14/21 at 00:00 Non-Formulary Medication (Mercaptopurine ) 50 mg DAILY PO ; Start 08/14/21 at 09:00; Status UNV Morphine Sulfate (Morphine Sulfate) 4 mg PRN Q2HR PRN IV SEVERE PAIN 7-10; Start 08/13/21 at 23:00 Zolpidem Tartrate (Ambien) 5 mg PRN QHS PRN PO INSOMNIA, MAY REPEAT IN 1HR; Start 08/13/21 at 23:00 Enoxaparin Sodium (Lovenox Per Pharmacy Prophylaxis Dosing) 1 each PRN DAILY PRN MC SEE COMMENTS; Start 08/14/21 at 09:00; Status UNV Enoxaparin Sodium (Lovenox Per Pharmacy Treatment Dosing) 1 each PRN DAILY PRN MC SEE COMMENTS; Start 08/13/21 at 23:15 Enoxaparin Sodium (Lovenox 100mg Syringe) 100 mg Q12HR SQ Last administered on 08/14/21at 08:33; Start 08/14/21 at 00:00 Acetaminophen (Tylenol) 650 mg PRN Q6HRS PRN PO MILD PAIN / TEMP > 100.3'F Last administered on 08/14/21at 08:57; Start 08/14/21 at 09:00 Active Scripts Active Pantoprazole Sodium (Pantoprazole Sodium) 40 Mg Tablet.dr 40 Mg PO BIDAC 30 Days Reported Aldactone (Spironolactone) 25 Mg Tablet 25 Mg PO DAILY Cozaar (Losartan Potassium) 25 Mg Tablet 25 Mg PO DAILY Carvedilol (Carvedilol) 12.5 Mg Tablet 12.5 Mg PO BIDWMEALS Xanax (Alprazolam) 0.5 Mg Tablet 0.5 Mg PO PRN Q6HRS PRN Adderall Xr 30 Mg Capsule (Dextroamphetamine/Amphetamine) 30 Mg Cap.er.24h 30 Mg PO DAILY Remicade (Infliximab) 100 Mg Vial 100 Mg IV Q6WK Testosterone Cypionate 200 Mg/1 Ml Vial 200 Mg IM Q2WKS Mercaptopurine 50 Mg Tablet 50 Mg PO DAILY Benadryl (Diphenhydramine Hcl) 25 Mg Capsule 1 Cap PO PRN QHS PRN 30 Days Zyrtec (Cetirizine Hcl) 10 Mg Tablet 10 Mg PO BID Escitalopram Oxalate 10 Mg Tablet 2 Tab PO HS Allergies Allergies: Coded Allergies: No Known Medication Allergies (Verified Allergy, Unknown, 08/13/21) acetaminophen (Verified Adverse Reaction, Intermediate, Nausea and Vomiting, 08/13/21) oxycodone (Verified Adverse Reaction, Intermediate, Nausea and Vomiting, 08/13/21) ROS General: YES: Fatigue; No: Chills, Night Sweats, Malaise, Appetite, Other PSYCHOLOGICAL ROS: YES: Depression, Obsessive thoughts, Other (recent divorce); No: Anxiety, Behavioral Disorder, Concentration difficultie, Decreased libido, Disorientation, Hallucinations, Hostility, Irritablity, Memory difficulties, Mood Swings, Suicidal ideation Eyes: No Blurry vision, No Decreased vision, No Double vision, No Dry eyes, No Excessive tearing, No Eye Pain, No Itchy Eyes, No Loss of vision, No Photophobia, No Scotomata, No Uses contacts, No Uses glasses, No Other HEENT: No: Heacaches, Visual Changes, Hearing change, Nasal congestion, Nasal discharge, Oral lesions, Sinus pain, Sore Throat, Epistaxis, Sneezing, Snoring, Tinnitus, Vertigo, Vocal changes, Other Respiratory: No: Cough, Hemoptysis, Orthopnea, Pleuritic Pain, Shortness of breath, SOB with excertion, Sputum Changes, Stridor, Tachypnea, Wheezing, Other Cardiovascular: yes Chest Pain; No Palpitations, No Orthopnea, No Paroxysmal Noc. Dyspnea, No Edema, No Lt Headedness, No Other Gastrointestinal: Yes Nausea; No Vomiting, No Abdominal Pain, No Diarrhea, No Constipation, No Melena, No Hematochezia, No Other Genitourinary: No Dysuria, No Frequency, No Incontinence, No Hematuria, No Retention, No Discharge, No Urgency, No Pain, No Flank Pain, No Other, No , No , No , No , No , No , No Musculoskeletal: No Gait Disturbance, No Joint Pain, No Joint Stiffness, No Joint Swelling, No Muscle Pain, No Muscular Weakness, No Pain In:, No Swelling In:, No Other Neurological: No Behavorial Changes, No Bowel/Bladder ControlChng, No Confusion, No Dizziness, No Gait Disturbance, No Headaches, No Impaired Coord/balance, No Memory Loss, No Numbness/Tingling, No Seizures, No Speech Problems, No Tremors, No Visual Changes, No Weakness, No Other Skin: No Eczema, No Hair Changes, No Lumps, No Mole Changes, No Mottling, No Nail Changes, No Pruritus, No Rash, No Skin Lesion Changes, No Other, No Acne Physical Exam Physical Exam flat affect General: Alert, Cooperative, mild distress HEENT: PERRLA, Mucous membr. moist/pink Heart: no gallops, murmurs Abdomen: Normal bowel sounds, Soft Rectal Exam: not examined Extremities: No edema, Normal pulses Skin: No rashes, No breakdown Vitals Vitals Vital Signs Date Time Temp Pulse Resp B/P (MAP) Pulse Ox O2 Delivery O2 Flow Rate FiO2 08/14/21 08:33 70 08/14/21 06:33 97.5 16 177/111 (133) 96 Room Air 97.5 Labs Labs Laboratory Tests Test 08/13/21 19:05 08/14/21 05:20 White Blood Count 7.9 x10^3/uL (4.0-11.0) 5.4 x10^3/uL (4.0-11.0) Red Blood Count 5.61 x10^6/uL (4.30-5.70) 5.37 x10^6/uL (4.30-5.70) Hemoglobin 15.9 g/dL (13.0-17.5) 15.1 g/dL (13.0-17.5) Hematocrit 48.3 % (39.0-53.0) 46.7 % (39.0-53.0) Mean Corpuscular Volume 86 fL (79-100) 87 fL (79-100) Mean Corpuscular Hemoglobin 28 pg (25-35) 28 pg (25-35) Mean Corpuscular Hemoglobin Concent 33 g/dL (31-37) 33 g/dL (31-37) Red Cell Distribution Width 15.8 % (11.5-14.5) 15.8 % (11.5-14.5) Platelet Count 278 x10^3/uL (140-400) 238 x10^3/uL (140-400) Neutrophils (%) (Auto) 75 % (31-73) 54 % (31-73) Lymphocytes (%) (Auto) 15 % (24-48) 26 % (24-48) Monocytes (%) (Auto) 9 % (0-9) 14 % (0-9) Eosinophils (%) (Auto) 1 % (0-3) 5 % (0-3) Basophils (%) (Auto) 1 % (0-3) 1 % (0-3) Neutrophils # (Auto) 6.0 x10^3/uL (1.8-7.7) 2.9 x10^3/uL (1.8-7.7) Lymphocytes # (Auto) 1.2 x10^3/uL (1.0-4.8) 1.4 x10^3/uL (1.0-4.8) Monocytes # (Auto) 0.7 x10^3/uL (0.0-1.1) 0.7 x10^3/uL (0.0-1.1) Eosinophils # (Auto) 0.1 x10^3/uL (0.0-0.7) 0.3 x10^3/uL (0.0-0.7) Basophils # (Auto) 0.0 x10^3/uL (0.0-0.2) 0.0 x10^3/uL (0.0-0.2) D-Dimer (Vielka) < 0.27 ug/mlFEU Sodium Level 138 mmol/L (136-145) 140 mmol/L (136-145) Potassium Level 3.3 mmol/L (3.5-5.1) 3.8 mmol/L (3.5-5.1) Chloride Level 101 mmol/L (98-107) 102 mmol/L (98-107) Carbon Dioxide Level 23 mmol/L (21-32) 27 mmol/L (21-32) Anion Gap 14 (6-14) 11 (6-14) Blood Urea Nitrogen 16 mg/dL (8-26) 20 mg/dL (8-26) Creatinine 1.3 mg/dL (0.7-1.3) 1.2 mg/dL (0.7-1.3) Estimated GFR (Cockcroft-Gault) 62.1 68.1 BUN/Creatinine Ratio 12 (6-20) Glucose Level 92 mg/dL (70-99) 90 mg/dL (70-99) Calcium Level 8.9 mg/dL (8.5-10.1) 8.7 mg/dL (8.5-10.1) Total Bilirubin 1.3 mg/dL (0.2-1.0) Aspartate Amino Transf (AST/SGOT) 26 U/L (15-37) Alanine Aminotransferase (ALT/SGPT) 55 U/L (16-63) Alkaline Phosphatase 90 U/L (46-116) Troponin I High Sensitivity 7 ng/L (4-75) 7 ng/L (4-75) Total Protein 8.7 g/dL (6.4-8.2) Albumin 4.2 g/dL (3.4-5.0) Albumin/Globulin Ratio 0.9 (1.0-1.7) Triglycerides Level 84 mg/dL (0-150) Cholesterol Level 131 mg/dL (0-200) LDL Cholesterol, Calculated 72 mg/dL (0-100) VLDL Cholesterol, Calculated 17 mg/dL (0-40) Non-HDL Cholesterol Calculated 89 mg/dL (0-129) HDL Cholesterol 42 mg/dL (40-60) Cholesterol/HDL Ratio 3.1 Laboratory Tests Test 08/13/21 19:05 08/14/21 05:20 White Blood Count 7.9 x10^3/uL (4.0-11.0) 5.4 x10^3/uL (4.0-11.0) Red Blood Count 5.61 x10^6/uL (4.30-5.70) 5.37 x10^6/uL (4.30-5.70) Hemoglobin 15.9 g/dL (13.0-17.5) 15.1 g/dL (13.0-17.5) Hematocrit 48.3 % (39.0-53.0) 46.7 % (39.0-53.0) Mean Corpuscular Volume 86 fL (79-100) 87 fL (79-100) Mean Corpuscular Hemoglobin 28 pg (25-35) 28 pg (25-35) Mean Corpuscular Hemoglobin Concent 33 g/dL (31-37) 33 g/dL (31-37) Red Cell Distribution Width 15.8 % (11.5-14.5) 15.8 % (11.5-14.5) Platelet Count 278 x10^3/uL (140-400) 238 x10^3/uL (140-400) Neutrophils (%) (Auto) 75 % (31-73) 54 % (31-73) Lymphocytes (%) (Auto) 15 % (24-48) 26 % (24-48) Monocytes (%) (Auto) 9 % (0-9) 14 % (0-9) Eosinophils (%) (Auto) 1 % (0-3) 5 % (0-3) Basophils (%) (Auto) 1 % (0-3) 1 % (0-3) Neutrophils # (Auto) 6.0 x10^3/uL (1.8-7.7) 2.9 x10^3/uL (1.8-7.7) Lymphocytes # (Auto) 1.2 x10^3/uL (1.0-4.8) 1.4 x10^3/uL (1.0-4.8) Monocytes # (Auto) 0.7 x10^3/uL (0.0-1.1) 0.7 x10^3/uL (0.0-1.1) Eosinophils # (Auto) 0.1 x10^3/uL (0.0-0.7) 0.3 x10^3/uL (0.0-0.7) Basophils # (Auto) 0.0 x10^3/uL (0.0-0.2) 0.0 x10^3/uL (0.0-0.2) D-Dimer (Vielka) < 0.27 ug/mlFEU Sodium Level 138 mmol/L (136-145) 140 mmol/L (136-145) Potassium Level 3.3 mmol/L (3.5-5.1) 3.8 mmol/L (3.5-5.1) Chloride Level 101 mmol/L (98-107) 102 mmol/L (98-107) Carbon Dioxide Level 23 mmol/L (21-32) 27 mmol/L (21-32) Anion Gap 14 (6-14) 11 (6-14) Blood Urea Nitrogen 16 mg/dL (8-26) 20 mg/dL (8-26) Creatinine 1.3 mg/dL (0.7-1.3) 1.2 mg/dL (0.7-1.3) Estimated GFR (Cockcroft-Gault) 62.1 68.1 BUN/Creatinine Ratio 12 (6-20) Glucose Level 92 mg/dL (70-99) 90 mg/dL (70-99) Calcium Level 8.9 mg/dL (8.5-10.1) 8.7 mg/dL (8.5-10.1) Total Bilirubin 1.3 mg/dL (0.2-1.0) Aspartate Amino Transf (AST/SGOT) 26 U/L (15-37) Alanine Aminotransferase (ALT/SGPT) 55 U/L (16-63) Alkaline Phosphatase 90 U/L (46-116) Troponin I High Sensitivity 7 ng/L (4-75) 7 ng/L (4-75) Total Protein 8.7 g/dL (6.4-8.2) Albumin 4.2 g/dL (3.4-5.0) Albumin/Globulin Ratio 0.9 (1.0-1.7) Triglycerides Level 84 mg/dL (0-150) Cholesterol Level 131 mg/dL (0-200) LDL Cholesterol, Calculated 72 mg/dL (0-100) VLDL Cholesterol, Calculated 17 mg/dL (0-40) Non-HDL Cholesterol Calculated 89 mg/dL (0-129) HDL Cholesterol 42 mg/dL (40-60) Cholesterol/HDL Ratio 3.1 VTE Prophylaxis Ordered VTE Prophylaxis Devices: Yes VTE Pharmacological Prophylaxi: Yes Assessment/Plan Assessment/Plan angina, r/o ACS, hx CAD, Prior MS noted, chrons colitis obese, BMI 34 headache, hx migrane, add fiorcet, tryptan depression, anxiety, poor control with celexa, consult PAT team, Justifications for Admission Other Justification ELVIA LAI MD Aug 14, 2021 09:42
[2021-08-14] MEDS ORDERED: BUTALB/APAP/CAFEIN 50/325/40MG TABLET. PO PRN (11:45)
--- NOTE | 2021-08-14 13:58 | NUR ---
Nursing: Patient continues to report persistent headache/migraine 10/11. Additional PRN given. Dr. Patton on unit.
[2021-08-14] MEDS: NITROGLYCERIN SUBLINGUAL 0.4 MG BOTTLE OF 25. SL PRN (15:09)
--- NOTE | 2021-08-14 15:29 | NUR ---
Nursing: Sharp chest pain 6/10 reported per patient. EKG ordered (being done now). PRN Nitro and Morphine given. Dr. Abdi mccain. Vitals assessed and stable. Currently rating pain 2/10. Will continue to closely monitor.
--- NOTE | 2021-08-14 15:35 | PDOC2 ---
CONSULT Date of Consult Date of Consult DATE: 08/14/21 TIME: 15:29 Reason for Consult Reason for Consult: Chest pain Referring Physician Referring Physician: Dr. Patton Identification/Chief Complaint Chief Complaint Chest pain Source Source: Chart review, Patient History of Present Illness Reason for Visit: The patient is a 35-year-old male who came to the emergency room last night with the chief complaint of left-sided chest pain. This pain radiates to his left shoulder and occasionally down to his arm. He also reports an episode of syncope immediately post onset of chest pain. The pain however is partially reproducible by palpations and deep inspiration. His initial EKG showed a sinus tachycardia with a rate of [address]-T wave changes but no evidence of ST BRIAN. Chest x-ray showed no acute changes. Troponin has been 7 and a repeat was also 7. D-dimer was less than 0.27. Overnight the patient has been feeling better. He is somewhat fatigued today. His rhythm has remained in a sinus rhythm. Of note he states he is followed by [facility] and possibly had a non-ST elevated myocardial infraction in the past. He reports a recent stress test was normal. Past Medical History Cardiovascular: No pertinent hx, HTN, Hyperlipidemia, Other (Possible coronary artery disease.) Pulmonary: No pertinent hx CENTRAL NERVOUS SYSTEM: Other GI: Hemorrhoids, Inflam bowel disease Heme/Onc: No pertinent hx Hepatobiliary: No pertinent hx Psych: No pertinent hx Musculoskeletal: Other Infectious disease: No pertinent hx Renal/: Other Endocrine: No pertinent hx Past Surgical History Past Surgical History: Appendectomy, Other (Knee surgery.) Family History Family History: Coronary Artery Disease, Heart Disease Social History No ALCOHOL: rare Drugs: None Lives: with Family Current Problem List Problem List Problems Medical Problems: (1) Chest pain Status: Acute Current Medications Current Medications Current Medications Aspirin (Aspirin Chewable) 324 mg 1X ONCE PO Last administered on 08/13/21at 19:03; Start 08/13/21 at 19:00; Stop 08/13/21 at 19:01; Status DC Nitroglycerin (Nitrostat) 0.4 mg PRN Q5MIN PRN SL CP RATING > 1/10 Last admini stered on 08/14/21at 15:09; Start 08/13/21 at 19:00; Stop 08/14/21 at 18:59 Alprazolam (Xanax) 0.5 mg PRN Q6HRS PRN PO ANXIETY / AGITATION; Start 08/13/21 at 22:45 Carvedilol (Coreg) 12.5 mg BIDWMEALS PO Last administered on 08/14/21at 08:33; Start 08/14/21 at 08:00 Cetirizine HCl (ZyrTEC) 10 mg BID PO Last administered on 08/14/21at 08:33; Start 08/14/21 at 09:00 Diphenhydramine HCl (Benadryl) 25 mg PRN QHS PRN PO INSOMNIA; Start 08/13/21 at 22:45 Losartan Potassium (Cozaar) 25 mg DAILY PO Last administered on 08/14/21at 08:32; Start 08/14/21 at 09:00 Pantoprazole Sodium (Protonix) 40 mg BIDAC PO Last administered on 08/14/21at 08 :33; Start 08/14/21 at 07:30 Spironolactone (Aldactone) 25 mg DAILY PO Last administered on 08/14/21at 08:33; Start 08/14/21 at 09:00 Citalopram Hydrobromide (CeleXA) 40 mg HS PO Last administered on 08/13/21at 23:32; Start 08/14/21 at 00:00 Non-Formulary Medication (Mercaptopurine ) 50 mg DAILY PO ; Start 08/14/21 at 09:00; Status UNV Morphine Sulfate (Morphine Sulfate) 4 mg PRN Q2HR PRN IV SEVERE PAIN 7-10 Last administered on 08/14/21at 15:11; Start 08/13/21 at 23:00 Zolpidem Tartrate (Ambien) 5 mg PRN QHS PRN PO INSOMNIA, MAY REPEAT IN 1HR; Start 08/13/21 at 23:00 Enoxaparin Sodium (Lovenox Per Pharmacy Prophylaxis Dosing) 1 each PRN DAILY PRN MC SEE COMMENTS; Start 08/14/21 at 09:00; Status UNV Enoxaparin Sodium (Lovenox Per Pharmacy Treatment Dosing) 1 each PRN DAILY PRN MC SEE COMMENTS; Start 08/13/21 at 23:15 Enoxaparin Sodium (Lovenox 100mg Syringe) 100 mg Q12HR SQ Last administered on 08/14/21at 08:33; Start 08/14/21 at 00:00 Acetaminophen (Tylenol) 650 mg PRN Q6HRS PRN PO MILD PAIN / TEMP > 100.3'F Last administered on 08/14/21at 08:57; Start 08/14/21 at 09:00 Sumatriptan Succinate (Imitrex) 50 mg PRN Q2HR PRN PO MIGRAINE HEADACHE Last administered on 08/14/21at 12:08; Start 08/14/21 at 11:45 Acetaminophen/ Butalbital/ Caffeine (Fioricet) 1 tab PRN Q6HRS PRN PO MIGRAINE HEADACHE Last administered on 08/14/21at 13:47; Start 08/14/21 at 11:45 Active Scripts Active Pantoprazole Sodium (Pantoprazole Sodium) 40 Mg Tablet.dr 40 Mg PO BIDAC 30 Days Reported Aldactone (Spironolactone) 25 Mg Tablet 25 Mg PO DAILY Cozaar (Losartan Potassium) 25 Mg Tablet 25 Mg PO DAILY Carvedilol (Carvedilol) 12.5 Mg Tablet 12.5 Mg PO BIDWMEALS Xanax (Alprazolam) 0.5 Mg Tablet 0.5 Mg PO PRN Q6HRS PRN Adderall Xr 30 Mg Capsule (Dextroamphetamine/Amphetamine) 30 Mg Cap.er.24h 30 Mg PO DAILY Remicade (Infliximab) 100 Mg Vial 100 Mg IV Q6WK Testosterone Cypionate 200 Mg/1 Ml Vial 200 Mg IM Q2WKS Mercaptopurine 50 Mg Tablet 50 Mg PO DAILY Benadryl (Diphenhydramine Hcl) 25 Mg Capsule 1 Cap PO PRN QHS PRN 30 Days Zyrtec (Cetirizine Hcl) 10 Mg Tablet 10 Mg PO BID Escitalopram Oxalate 10 Mg Tablet 2 Tab PO HS Allergies Allergies: Coded Allergies: No Known Medication Allergies (Verified Allergy, Unknown, 08/13/21) acetaminophen (Verified Adverse Reaction, Intermediate, Nausea and Vomiting, 08/13/21) oxycodone (Verified Adverse Reaction, Intermediate, Nausea and Vomiting, 08/13/21) ROS General: YES: Fatigue Respiratory: YES: SOB with excertion Cardiovascular: yes Chest Pain Physical Exam General: mild distress HEENT: Atraumatic Lungs: Clear to auscultation Heart: Regular rate Abdomen: Normal bowel sounds Vitals VITALS Vital Signs Date Time Temp Pulse Resp B/P (MAP) Pulse Ox O2 Delivery O2 Flow Rate FiO2 08/14/21 15:09 80 08/14/21 11:04 97.4 18 113/66 (82) 96 Room Air 97.4 Labs Labs Laboratory Tests Test 08/13/21 19:05 08/14/21 05:20 White Blood Count 7.9 x10^3/uL (4.0-11.0) 5.4 x10^3/uL (4.0-11.0) Red Blood Count 5.61 x10^6/uL (4.30-5.70) 5.37 x10^6/uL (4.30-5.70) Hemoglobin 15.9 g/dL (13.0-17.5) 15.1 g/dL (13.0-17.5) Hematocrit 48.3 % (39.0-53.0) 46.7 % (39.0-53.0) Mean Corpuscular Volume 86 fL (79-100) 87 fL (79-100) Mean Corpuscular Hemoglobin 28 pg (25-35) 28 pg (25-35) Mean Corpuscular Hemoglobin Concent 33 g/dL (31-37) 33 g/dL (31-37) Red Cell Distribution Width 15.8 % (11.5-14.5) 15.8 % (11.5-14.5) Platelet Count 278 x10^3/uL (140-400) 238 x10^3/uL (140-400) Neutrophils (%) (Auto) 75 % (31-73) 54 % (31-73) Lymphocytes (%) (Auto) 15 % (24-48) 26 % (24-48) Monocytes (%) (Auto) 9 % (0-9) 14 % (0-9) Eosinophils (%) (Auto) 1 % (0-3) 5 % (0-3) Basophils (%) (Auto) 1 % (0-3) 1 % (0-3) Neutrophils # (Auto) 6.0 x10^3/uL (1.8-7.7) 2.9 x10^3/uL (1.8-7.7) Lymphocytes # (Auto) 1.2 x10^3/uL (1.0-4.8) 1.4 x10^3/uL (1.0-4.8) Monocytes # (Auto) 0.7 x10^3/uL (0.0-1.1) 0.7 x10^3/uL (0.0-1.1) Eosinophils # (Auto) 0.1 x10^3/uL (0.0-0.7) 0.3 x10^3/uL (0.0-0.7) Basophils # (Auto) 0.0 x10^3/uL (0.0-0.2) 0.0 x10^3/uL (0.0-0.2) D-Dimer (Vielka) < 0.27 ug/mlFEU Sodium Level 138 mmol/L (136-145) 140 mmol/L (136-145) Potassium Level 3.3 mmol/L (3.5-5.1) 3.8 mmol/L (3.5-5.1) Chloride Level 101 mmol/L (98-107) 102 mmol/L (98-107) Carbon Dioxide Level 23 mmol/L (21-32) 27 mmol/L (21-32) Anion Gap 14 (6-14) 11 (6-14) Blood Urea Nitrogen 16 mg/dL (8-26) 20 mg/dL (8-26) Creatinine 1.3 mg/dL (0.7-1.3) 1.2 mg/dL (0.7-1.3) Estimated GFR (Cockcroft-Gault) 62.1 68.1 BUN/Creatinine Ratio 12 (6-20) Glucose Level 92 mg/dL (70-99) 90 mg/dL (70-99) Calcium Level 8.9 mg/dL (8.5-10.1) 8.7 mg/dL (8.5-10.1) Total Bilirubin 1.3 mg/dL (0.2-1.0) Aspartate Amino Transf (AST/SGOT) 26 U/L (15-37) Alanine Aminotransferase (ALT/SGPT) 55 U/L (16-63) Alkaline Phosphatase 90 U/L (46-116) Troponin I High Sensitivity 7 ng/L (4-75) 7 ng/L (4-75) Total Protein 8.7 g/dL (6.4-8.2) Albumin 4.2 g/dL (3.4-5.0) Albumin/Globulin Ratio 0.9 (1.0-1.7) Triglycerides Level 84 mg/dL (0-150) Cholesterol Level 131 mg/dL (0-200) LDL Cholesterol, Calculated 72 mg/dL (0-100) VLDL Cholesterol, Calculated 17 mg/dL (0-40) Non-HDL Cholesterol Calculated 89 mg/dL (0-129) HDL Cholesterol 42 mg/dL (40-60) Cholesterol/HDL Ratio 3.1 Laboratory Tests Test 08/13/21 19:05 08/14/21 05:20 White Blood Count 7.9 x10^3/uL (4.0-11.0) 5.4 x10^3/uL (4.0-11.0) Red Blood Count 5.61 x10^6/uL (4.30-5.70) 5.37 x10^6/uL (4.30-5.70) Hemoglobin 15.9 g/dL (13.0-17.5) 15.1 g/dL (13.0-17.5) Hematocrit 48.3 % (39.0-53.0) 46.7 % (39.0-53.0) Mean Corpuscular Volume 86 fL (79-100) 87 fL (79-100) Mean Corpuscular Hemoglobin 28 pg (25-35) 28 pg (25-35) Mean Corpuscular Hemoglobin Concent 33 g/dL (31-37) 33 g/dL (31-37) Red Cell Distribution Width 15.8 % (11.5-14.5) 15.8 % (11.5-14.5) Platelet Count 278 x10^3/uL (140-400) 238 x10^3/uL (140-400) Neutrophils (%) (Auto) 75 % (31-73) 54 % (31-73) Lymphocytes (%) (Auto) 15 % (24-48) 26 % (24-48) Monocytes (%) (Auto) 9 % (0-9) 14 % (0-9) Eosinophils (%) (Auto) 1 % (0-3) 5 % (0-3) Basophils (%) (Auto) 1 % (0-3) 1 % (0-3) Neutrophils # (Auto) 6.0 x10^3/uL (1.8-7.7) 2.9 x10^3/uL (1.8-7.7) Lymphocytes # (Auto) 1.2 x10^3/uL (1.0-4.8) 1.4 x10^3/uL (1.0-4.8) Monocytes # (Auto) 0.7 x10^3/uL (0.0-1.1) 0.7 x10^3/uL (0.0-1.1) Eosinophils # (Auto) 0.1 x10^3/uL (0.0-0.7) 0.3 x10^3/uL (0.0-0.7) Basophils # (Auto) 0.0 x10^3/uL (0.0-0.2) 0.0 x10^3/uL (0.0-0.2) D-Dimer (Vielka) < 0.27 ug/mlFEU Sodium Level 138 mmol/L (136-145) 140 mmol/L (136-145) Potassium Level 3.3 mmol/L (3.5-5.1) 3.8 mmol/L (3.5-5.1) Chloride Level 101 mmol/L (98-107) 102 mmol/L (98-107) Carbon Dioxide Level 23 mmol/L (21-32) 27 mmol/L (21-32) Anion Gap 14 (6-14) 11 (6-14) Blood Urea Nitrogen 16 mg/dL (8-26) 20 mg/dL (8-26) Creatinine 1.3 mg/dL (0.7-1.3) 1.2 mg/dL (0.7-1.3) Estimated GFR (Cockcroft-Gault) 62.1 68.1 BUN/Creatinine Ratio 12 (6-20) Glucose Level 92 mg/dL (70-99) 90 mg/dL (70-99) Calcium Level 8.9 mg/dL (8.5-10.1) 8.7 mg/dL (8.5-10.1) Total Bilirubin 1.3 mg/dL (0.2-1.0) Aspartate Amino Transf (AST/SGOT) 26 U/L (15-37) Alanine Aminotransferase (ALT/SGPT) 55 U/L (16-63) Alkaline Phosphatase 90 U/L (46-116) Troponin I High Sensitivity 7 ng/L (4-75) 7 ng/L (4-75) Total Protein 8.7 g/dL (6.4-8.2) Albumin 4.2 g/dL (3.4-5.0) Albumin/Globulin Ratio 0.9 (1.0-1.7) Triglycerides Level 84 mg/dL (0-150) Cholesterol Level 131 mg/dL (0-200) LDL Cholesterol, Calculated 72 mg/dL (0-100) VLDL Cholesterol, Calculated 17 mg/dL (0-40) Non-HDL Cholesterol Calculated 89 mg/dL (0-129) HDL Cholesterol 42 mg/dL (40-60) Cholesterol/HDL Ratio 3.1 Images Images Chest x-ray shows no acute changes. Assessment/Plan Assessment/Plan 1. Chest pain. Patient's pain has significantly improved today. He has no EKG evidence of an ST elevated myocardial infarction. Troponin has been normal on 2 occasions. D-dimer is normal as well. He reports of history of possible coronary disease and has been treated at . However he also reports a history of a relatively recent normal stress test at . At this time we will continue on baseline medications and gradually increase his activities. We will obtain records from . 2. Hypertension. Patient's blood pressure is under better control. We will continue present treatment. 3. Possible hyperlipidemia. Will check baseline morning lab. 4. Reported history of syncope after his chest pain started. His rhythm has been stable overnight. We will continue present treatments. Records from as above. Thank you for allowing us to participate in the care of your patient. JUDY PARR MD Aug 14, 2021 15:35
--- NOTE | 2021-08-14 15:50 | EKG ---
[facility] [address] [place] [address] Test Date: 2021-08-14 Test Time: 14:31:26 Pat Name: CARLOS ATKINS Department: Room: 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
[2021-08-14] MEDS: CITALOPRAM 20 MG TABLET. PO SCH (20:27)
[2021-08-15 02:42] VITALS: BP 117/66
[2021-08-15 06:30] VITALS: BP 135/70
[2021-08-15] MEDS: LOSARTAN POTASSIUM 25 MG TABLET. PO SCH (08:41)
[2021-08-15] MEDS: CETIRIZINE HCL 10 MG TABLET. PO SCH (08:41)
[2021-08-15] MEDS: PANTOPRAZOLE 40 MG TABLET.DR. PO SCH (08:41)
[2021-08-15] MEDS: SPIRONOLACTONE 25 MG TABLET PO SCH (08:42)
[2021-08-15] MEDS: MERCAPTOPURINE 50 MG PO SCH (08:42)
[2021-08-15 10:52] VITALS: BP 127/66
[2021-08-15] MEDS: CARVEDILOL 12.5 MG TABLET. PO SCH (11:39)
--- NOTE | 2021-08-15 11:46 | NUR ---
SS following for discharge planning. SS reviewed pt chart and discussed with pt RN. Pt is from home with spouse and is currently on room air. Cardiology following. Discharge order on the chart for home with self care.
--- NOTE | 2021-08-15 14:00 | NUR ---
Checked with Dr. Coronel if he was ok with discharge & he was. Patient to follow up with cardiology.
[2021-08-15 15:00] VITALS: BP 128/72
--- NOTE | 2021-08-15 15:00 | NUR ---
Patient to be discharging today, however at 1500 called out for RN, stating he had stabbing L sided chest pain that started while he was on the phone with his sister. Patient placed back on tele monitor & was in SR with HR in 80s. BP was 151/80 then came down to 128/72 after about [address] Field notified at 1505 & still wanted patient to discharge.
--- NOTE | 2021-08-15 16:00 | NUR ---
Discharge Note: CARLOS ATKINS [address] [place] [address] Discharge instructions and discharge home medications reviewed with Patient and a copy given. All questions have been answered and understanding verbalized. The following instructions and handouts were given: discharge instructions, med list, follow ups, CP education, educated patient about stress relief Discontinued lines and drains: Peripheral IV intact. Patient discharged to Home or Self Care with Self via Ambulated at 1600.
--- NOTE | 2021-08-15 18:04 | PDOC ---
PROGRESS NOTES Date of Service DATE: 08/15/21 TIME: 18:02 Subjective Subjective Patient seen and examined Objective Objective Vital Signs Date Time Temp Pulse Resp B/P (MAP) Pulse Ox O2 Delivery O2 Flow Rate FiO2 08/15/21 15:00 98.1 73 20 128/72 (90) 96 Room Air 98.1 Intake and Output 08/15/21 07:00 Intake Total 910 ml Output Total 1550 ml Balance -640 ml Intake Oral 910 ml Output Urine Total 1550 ml Physical Exam Abdomen: Normal bowel sounds Heart: Regular rate General: No acute distress Lungs: Clear to auscultation Assessment Assessment Problems Medical Problems: (1) Chest pain Status: Acute 1. Chest pain. The patient's pain has largely resolved. He has no EKG evidence of acute ischemia. Troponin has been normal x2. D-dimer is normal as well. He reports of history of possible coronary disease and has been treated at . However he also reports a history of a relatively recent normal stress test at . We will increase the patient's activity. Continue present treatment. Follow-up through . 2. Hypertension. Patient's blood pressure is under better control. We will continue present treatment. 3. Possible hyperlipidemia. Lipid panel is within normal limits. 4. Reported history of syncope after his chest pain started. His rhythm cont inues to be stable. We will continue present treatment. Comment Review of Relevant I have reviewed the following items adis (where applicable) has been applied. Labs Laboratory Tests Test 08/13/21 19:05 08/14/21 05:20 White Blood Count 7.9 x10^3/uL (4.0-11.0) 5.4 x10^3/uL (4.0-11.0) Red Blood Count 5.61 x10^6/uL (4.30-5.70) 5.37 x10^6/uL (4.30-5.70) Hemoglobin 15.9 g/dL (13.0-17.5) 15.1 g/dL (13.0-17.5) Hematocrit 48.3 % (39.0-53.0) 46.7 % (39.0-53.0) Mean Corpuscular Volume 86 fL (79-100) 87 fL (79-100) Mean Corpuscular Hemoglobin 28 pg (25-35) 28 pg (25-35) Mean Corpuscular Hemoglobin Concent 33 g/dL (31-37) 33 g/dL (31-37) Red Cell Distribution Width 15.8 % (11.5-14.5) 15.8 % (11.5-14.5) Platelet Count 278 x10^3/uL (140-400) 238 x10^3/uL (140-400) Neutrophils (%) (Auto) 75 % (31-73) 54 % (31-73) Lymphocytes (%) (Auto) 15 % (24-48) 26 % (24-48) Monocytes (%) (Auto) 9 % (0-9) 14 % (0-9) Eosinophils (%) (Auto) 1 % (0-3) 5 % (0-3) Basophils (%) (Auto) 1 % (0-3) 1 % (0-3) Neutrophils # (Auto) 6.0 x10^3/uL (1.8-7.7) 2.9 x10^3/uL (1.8-7.7) Lymphocytes # (Auto) 1.2 x10^3/uL (1.0-4.8) 1.4 x10^3/uL (1.0-4.8) Monocytes # (Auto) 0.7 x10^3/uL (0.0-1.1) 0.7 x10^3/uL (0.0-1.1) Eosinophils # (Auto) 0.1 x10^3/uL (0.0-0.7) 0.3 x10^3/uL (0.0-0.7) Basophils # (Auto) 0.0 x10^3/uL (0.0-0.2) 0.0 x10^3/uL (0.0-0.2) D-Dimer (Vielka) < 0.27 ug/mlFEU Sodium Level 138 mmol/L (136-145) 140 mmol/L (136-145) Potassium Level 3.3 mmol/L (3.5-5.1) 3.8 mmol/L (3.5-5.1) Chloride Level 101 mmol/L (98-107) 102 mmol/L (98-107) Carbon Dioxide Level 23 mmol/L (21-32) 27 mmol/L (21-32) Anion Gap 14 (6-14) 11 (6-14) Blood Urea Nitrogen 16 mg/dL (8-26) 20 mg/dL (8-26) Creatinine 1.3 mg/dL (0.7-1.3) 1.2 mg/dL (0.7-1.3) Estimated GFR (Cockcroft-Gault) 62.1 68.1 BUN/Creatinine Ratio 12 (6-20) Glucose Level 92 mg/dL (70-99) 90 mg/dL (70-99) Calcium Level 8.9 mg/dL (8.5-10.1) 8.7 mg/dL (8.5-10.1) Total Bilirubin 1.3 mg/dL (0.2-1.0) Aspartate Amino Transf (AST/SGOT) 26 U/L (15-37) Alanine Aminotransferase (ALT/SGPT) 55 U/L (16-63) Alkaline Phosphatase 90 U/L (46-116) Troponin I High Sensitivity 7 ng/L (4-75) 7 ng/L (4-75) Total Protein 8.7 g/dL (6.4-8.2) Albumin 4.2 g/dL (3.4-5.0) Albumin/Globulin Ratio 0.9 (1.0-1.7) Triglycerides Level 84 mg/dL (0-150) Cholesterol Level 131 mg/dL (0-200) LDL Cholesterol, Calculated 72 mg/dL (0-100) VLDL Cholesterol, Calculated 17 mg/dL (0-40) Non-HDL Cholesterol Calculated 89 mg/dL (0-129) HDL Cholesterol 42 mg/dL (40-60) Cholesterol/HDL Ratio 3.1 Medications Current Medications Aspirin (Aspirin Chewable) 324 mg 1X ONCE PO Last administered on 08/13/21at 19:03; Start 08/13/21 at 19:00; Stop 08/13/21 at 19:01; Status DC Nitroglycerin (Nitrostat) 0.4 mg PRN Q5MIN PRN SL CP RATING > 1/10 Last administered on 08/14/21at 15:09; Start 08/13/21 at 19:00; Stop 08/14/21 at 18:59; Status DC Alprazolam (Xanax) 0.5 mg PRN Q6HRS PRN PO ANXIETY / AGITATION Last administered on 08/14/21 20:32; Start 08/13/21 at 22:45; Stop 08/15/21 at 16:15; Status DC Carvedilol (Coreg) 12.5 mg BIDWMEALS PO Last administered on 08/15/21at 11:39; Start 08/14/21 at 08:00; Stop 08/15/21 at 16:15; Status DC Cetirizine HCl (ZyrTEC) 10 mg BID PO Last administered on 08/15/21at 08:41; Start 08/14/21 at 09:00; Stop 08/15/21 at 16:15; Status DC Diphenhydramine HCl (Benadryl) 25 mg PRN QHS PRN PO INSOMNIA Last administered on 08/14/21 20:32; Start 08/13/21 at 22:45; Stop 08/15/21 at 16:15; Status DC Losartan Potassium (Cozaar) 25 mg DAILY PO Last administered on 08/15/21at 08:41; Start 08/14/21 at 09:00; Stop 08/15/21 at 16:15; Status DC Pantoprazole Sodium (Protonix) 40 mg BIDAC PO Last administered on 08/15/21 08:41; Start 08/14/21 at 07:30; Stop 08/15/21 at 16:15; Status DC Spironolactone (Aldactone) 25 mg DAILY PO Last administered on 08/15/21at 08:42; Start 08/14/21 at 09:00; Stop 08/15/21 at 16:15; Status DC Citalopram Hydrobromide (CeleXA) 40 mg HS PO Last administered on 08/14/21at 20:27; Start 08/14/21 at 00:00; Stop 08/15/21 at 16:15; Status DC Non-Formulary Medication (Mercaptopurine ) 50 mg DAILY PO ; Start 08/14/21 at 0 9:00; Stop 08/15/21 at 16:15; Status DC Morphine Sulfate (Morphine Sulfate) 4 mg PRN Q2HR PRN IV SEVERE PAIN 7-10 Last administered on 08/14/21at 15:11; Start 08/13/21 at 23:00; Stop 08/15/21 at 16:15; Status DC Zolpidem Tartrate (Ambien) 5 mg PRN QHS PRN PO INSOMNIA, MAY REPEAT IN 1HR; Start 08/13/21 at 23:00; Stop 08/15/21 at 16:15; Status DC Enoxaparin Sodium (Lovenox Per Pharmacy Prophylaxis Dosing) 1 each PRN DAILY PRN MC SEE COMMENTS; Start 08/14/21 at 09:00; Status UNV Enoxaparin Sodium (Lovenox Per Pharmacy Treatment Dosing) 1 each PRN DAILY PRN MC SEE COMMENTS; Start 08/13/21 at 23:15; Stop 08/15/21 at 16:15; Status DC Enoxaparin Sodium (Lovenox 100mg Syringe) 100 mg Q12HR SQ Last administered on 08/15/21at 08:43; Start 08/14/21 at 00:00; Stop 08/15/21 at 16:15; Status DC Acetaminophen (Tylenol) 650 mg PRN Q6HRS PRN PO MILD PAIN / TEMP > 100.3'F Last administered on 08/14/21at 08:57; Start 08/14/21 at 09:00; Stop 08/15/21 at 16:15; Status DC Sumatriptan Succinate (Imitrex) 50 mg PRN Q2HR PRN PO MIGRAINE HEADACHE Last administered on 08/15/21at 08:50; Start 08/14/21 at 11:45; Stop 08/15/21 at 16:15; Status DC Acetaminophen/ Butalbital/ Caffeine (Fioricet) 1 tab PRN Q6HRS PRN PO MIGRAINE HEADACHE Last administered on 08/14/21at 13:47; Start 08/14/21 at 11:45; Stop 08/15/21 at 16:15; Status DC Active Scripts Active Pantoprazole Sodium (Pantoprazole Sodium) 40 Mg Tablet.dr 40 Mg PO BIDAC 30 Days Reported Aldactone (Spironolactone) 25 Mg Tablet 25 Mg PO DAILY Cozaar (Losartan Potassium) 25 Mg Tablet 25 Mg PO DAILY Carvedilol (Carvedilol) 12.5 Mg Tablet 12.5 Mg PO BIDWMEALS Xanax (Alprazolam) 0.5 Mg Tablet 0.5 Mg PO PRN Q6HRS PRN Adderall Xr 30 Mg Capsule (Dextroamphetamine/Amphetamine) 30 Mg Cap.er.24h 30 Mg PO DAILY Remicade (Infliximab) 100 Mg Vial 100 Mg IV Q6WK Testosterone Cypionate 200 Mg/1 Ml Vial 200 Mg IM Q2WKS Mercaptopurine 50 Mg Tablet 50 Mg PO DAILY Benadryl (Diphenhydramine Hcl) 25 Mg Capsule 1 Cap PO PRN QHS PRN 30 Days Zyrtec (Cetirizine Hcl) 10 Mg Tablet 10 Mg PO BID Escitalopram Oxalate 10 Mg Tablet 2 Tab PO HS Vitals/I & O Vital Sign - Last 24 Hours 08/14/21 08/14/21 08/14/21 08/15/21 19:15 19:32 22:56 02:42 Temp 97.7 97.6 98.0 97.7 97.6 98.0 Pulse 96 90 79 Resp 16 18 16 B/P (MAP) 145/77 (99) 146/86 (106) 117/66 (83) Pulse Ox 93 95 97 O2 Delivery Room Air Room Air Room Air Room Air 08/15/21 08/15/21 08/15/21 08/15/21 06:30 08:00 08:41 10:52 Temp 97.5 98.6 97.5 98.6 Pulse 88 88 64 Resp 18 18 B/P (MAP) 135/70 (91) 135/70 127/66 (86) Pulse Ox 96 97 O2 Delivery Room Air Room Air Room Air 08/15/21 08/15/21 11:39 15:00 Temp 98.1 98.1 Pulse 89 73 Resp 20 B/P (MAP) 127/66 128/72 (90) Pulse Ox 96 O2 Delivery Room Air Intake and Output 08/14/21 08/14/21 08/15/21 15:00 23:00 07:00 Intake Total 300 ml 610 ml 0 ml Output Total 600 ml 950 ml Balance -300 ml -340 ml 0 ml Justifications for Admission Other Justification JUDY PARR MD Aug 15, 2021 18:04
--- NOTE | 2021-08-16 12:27 | DS ---
DATE OF DISCHARGE: 08/15/2021 ADMISSION DIAGNOSIS: Chest pain. DISCHARGE DIAGNOSIS: Atypical chest pain. HOSPITAL COURSE: The patient is a pleasant 35-year-old male who is going through a divorce. He presented with chest pain. We admitted him, did serial enzymes, serial EKGs. His workup was negative, will be discharged home. DISPOSITION: Home. ACTIVITY: As tolerated. DIET: Low sodium. DISCHARGE MEDICATIONS: Please see the MRAD. TOTAL TIME: [address]: Grupo TID: [id number]
== END 2021-08-15 16:00 | disposition home or self-care (01) ==
LOC: ER 18:49 → 6 SOUTH 20:42 → INTOOBSV 20:42
PROVIDERS: ADMIT Internal Medicine; ATTEND Internal Medicine
DX: R07.89 Other chest pain (principal); I25.10 Atherosclerotic heart disease of native coronary artery without angina pectoris; K52.9 Noninfective gastroenteritis and colitis, unspecified; E66.9 Obesity, unspecified; E78.00 Pure hypercholesterolemia, unspecified; E78.5 Hyperlipidemia, unspecified; F32.A Depression, unspecified; F41.9 Anxiety disorder, unspecified; I10 Essential (primary) hypertension; I25.119 Atherosclerotic heart disease of native coronary artery with unspecified angina pectoris; R55 Syncope and collapse; I25.2 Old myocardial infarction; K50.90 Crohn's disease, unspecified, without complications; Z68.34 Body mass index [BMI] 34.0-34.9, adult; Z90.49 Acquired absence of other specified parts of digestive tract; Z79.899 Other long term (current) drug therapy; Z98.890 Other specified postprocedural states; Z79.82 Long term (current) use of aspirin
CPT/HCPCS: 36415; 71045; 80048; 80053; 80061; 84484; 85025; 85379; 93005; 96372; 96374; 99285; G0378; J1650; J2270; Q0163; G0379